=== PATIENT | female | born 1945 | race Caucasian/White ===

== ENCOUNTER 2021-07-07 11:05 | Inpatient (IN) | payer BC, SELFPAY ==
[~2021-07-07] VITALS: Ht 160 cm; Wt 95.3 kg
[2021-07-07 11:10] VITALS: BP 110/57
--- NOTE | 2021-07-07 11:53 | NUR ---
76 Y/O F BIB PATIENT PRESENTS TO ED WITH ABD PAIN ON LUQ AND LLQ THAT STARTED TODAY, PAIN ONLY WITH PALPATION AT THIS TIME. ABD IS ROUND/FIRM/TENDER, BM INCONTINENT (BASELINE). PT STATES SHE HAS A SENSATION THAT SHE IS HOLDING IN HER URINE AND DOESNT EMPTY ALL THE WAY. DENIES N/V/D; SKIN IS PINK/WARM/DRY; AAOX4, DOES NOT AMBULATE PER BASELINE; LUNGS CLEAR BL; HR EVEN AND REGULAR, CAP REFILL <3, GENERALIZED EDEMA NON PITTING; PT DENIES ANY FEVER, CP, SOB, OR COUGH AT THIS TIME; PATIENT STATES PAIN OF 0/10 AT THIS TIME; PATIENT POSITIONED FOR COMFORT; HOB ELEVATED; BEDRAILS UP X2; BED DOWN. ER MD MADE AWARE OF PT STATUS. RULE OUT: C DIFF PENDING PMH: DM2, GLAUCOMA, CHRONIC KIDNEY DISEASE, GASTRITIS, SLEEP APNEA, HYPERNATREMIA, HTN, ANEMIA, OSTEOARTHRITIS MED: SEE LIST ALLERGY: PENICILLIN
[2021-07-07 12:13] LABS: BASOPHILS # (AUTO) 0.1 K/uL (0.00-0.22); BASOPHILS % (AUTO) 1.2 % (0.0-2.0); EOSINOPHILS # (AUTO) 0.5 K/uL (0-0.4); HEMATOCRIT 29.7 % (36-48); HEMOGLOBIN 9.2 g/dL (12.0-16.0); LYMPHOCYTES # (AUTO) 3.2 K/uL (2.5-16.5); LYMPHOCYTES % (AUTO) 26.9 % (20.5-51.1); MEAN CORPUSCULAR HEMOGLOBIN 26 pg (27-31); MEAN CORPUSCULAR HGB CONC 31 g/dL (33-37); MEAN CORPUSCULAR VOLUME 83.8 fL (80-94); MONOCYTES # (AUTO) 1.2 K/uL (0.8-1.0); MONOCYTES % (AUTO) 10.3 % (1.7-9.3); NEUTROPHILS # (AUTO) 6.8 K/uL (1.8-7.7); NEUTROPHILS % (AUTO) 57.6 % (42.2-75.2); PLATELET COUNT (AUTO) 944 K/uL (140-450); RED BLOOD CELL COUNT(AUTO) 3.55 MIL/uL (4.20-5.40); RED CELL DISTRIBUTION WIDTH 25.1 % (11.6-13.7); WHITE BLOOD COUNT (AUTO) 11.8 K/uL (4.8-10.8)
[2021-07-07] MEDS ORDERED: NACL 0.9% 1,000 ML IV ONE ×2 (12:15→15:25)
[2021-07-07 12:22] LABS: ALBUMIN 1.7 g/dL (3.4-5.0); ANION GAP 11.2 (8-16); ASPARTATE AMINOTRANSFERASE 51 U/L (15-37); CARBON DIOXIDE 28.6 mmol/L (21-32); CHLORIDE 103 mmol/L (98-107); CREATININE 0.8 mg/dL (0.6-1.3); GLUCOSE 106 mg/dL (74-106); POTASSIUM 3.8 mmol/L (3.5-5.1); SODIUM SERUM 139 mmol/L (136-145); TOTAL BILIRUBIN 0.3 mg/dL (0.0-1.0); UREA NITROGEN, BLOOD 11 mg/dL (7-18)
--- NOTE | 2021-07-07 12:50 | NUR ---
PT SIGNED CONSENT FOR CT ANGIO.
--- NOTE | 2021-07-07 13:03 | NUR ---
STRAIGHT CATH DONE AT THIS TIME. URINE FOUL SMELL, YELLOW, CLOUDY WITH WHITE SEDIMENT. PERINEAL AREA TENDER TO TOUCH AND WHITE DISCHARGE.
--- NOTE | 2021-07-07 13:08 | NUR ---
URINE DIP WAS DIPPED 3 TIMES. MACHINE STATES IT IS UNABLE TO RUN DUE TO QUALITY FO STRIP.
[2021-07-07 14:25] LABS: APPEARANCE,URINE CLOUDY (CLEAR); COLOR,URINE YELLOW (YELLOW)
[2021-07-07 14:26] LABS: BILIRUBIN,URINE 3+ (NEGATIVE); LEUKOCYTE ESTERASE ,URINE 3+ (NEGATIVE); NITRITE, URINE NEGATIVE (NEGATIVE)
[2021-07-07 14:28] LABS: UGLUCOSE NEGATIVE (NEGATIVE)
[2021-07-07 14:30] LABS: BLOOD, URINE 3+ (NEGATIVE); PH,URINE 6.5 (5.0-9.0)
[2021-07-07 14:32] LABS: RBC,URINE >100 /HPF (0-5); WBC,URINE 80-100 /HPF (0-5)
[2021-07-07] MEDS ORDERED: ONDANSETRON 4 MG/2 ML VIAL IVP ONE (15:05)
[2021-07-07] MEDS ORDERED: AZITHROMYCIN 250 MG TAB PO ONE (15:10)
--- NOTE | 2021-07-07 15:24 | NUR ---
NOTIFIED MD OF PTS NAUSEA AND HUNGER; WAITING FOR MD NEW ORDERS. Addendum: 07/07/21 at 1835 by Rosa Guillermo RN WRONG TIME; SUPPOSED TO BE [id number]
--- NOTE | 2021-07-07 16:41 | NUR ---
Patient will be admitted to care of ENID MILLER. Admited to [facility]. Will go to room 113. Belongings list completed. Report to ALLY MCCAULEY.
--- NOTE | 2021-07-07 16:57 | NUR ---
PT HAS BEEN BROUGHT IN BY BHARGAV FROM THE ED IN STABLE CONDITION. PT WAS TRANSFERRED TO BED WITH 3 PEOPLE. PT IS BEDBOUND. PT DIAPER HAS BEEN CHANGED, AND CLEANED. JEAN-PIERRE TENDERNESS NOTED AND WHITE DISCHARGE. PT IS INCONTINENT. NO BM NOTED, PT REPORTS LAST BM WAS 3 DAYS AGO. NON PITTING GENERALIZED EDEMA NOTED, NO WOUNDS, ABDOMINAL STRETCH PALOMO NOTED. PT WAS POSITIONED SUPINE. PT PLACED ON 2L NC. PT LUNG SOUNDS CLEAR, DIMINISHED. PT HAS VISUAL IMPAIRMENT, HX OF GLAUCOMA NOTED. PT IS ON MED SURG WITH HR OF 98, BP 108/62, 94%, 20 RR, 98.9 TEMP. PT CAME FROM [facility]. AT BEDSIDE, HUMAIRA STRINGER, . PT HAS A L AC 20 G RUNNING NS @ 100. IV IS PATENT AND INTACT. BED PLACED IN LOWEST POSITION. PT VERBALIZED BEING HUNGRY, WILL NOTIFY REGARDING THIS. PT PLACED ON CONTACT PRECAUTIONS FOR R/O OF C DIFF FROM HER REHAB FACILITY. CALL LIGHT WITHIN REACH. WILL CONTINUE TO MONITOR.
--- NOTE | 2021-07-07 17:00 | NUR ---
PT LINENS CHANGED, DIAPER CHANGED, PT WAS TURNED SUPINE WITH BED ELEVATED TO SEMI FOWLERS AT THIS TIME.
[2021-07-07 17:35] VITALS: BP 108/62
--- NOTE | 2021-07-07 17:38 | NUR ---
PT NILAM SCALE IS 10, INITIATE NILAM SCALE PROTOCOL.
[2021-07-07] MEDS ORDERED: ONDANSETRON 4 MG/2 ML VIAL IVP PRN (18:25)
--- NOTE | 2021-07-07 18:35 | NUR ---
RESPONDED WITH NEW ORDERS REGARDING DIET, CALLED [facility] TO GET TRAY MADE FOR PT.
--- NOTE | 2021-07-07 18:35 | NUR ---
CALLED [facility] REGARDING LAST MINUTE [facility] CONSULT. [facility] STATED THEY WILL MAKE A TRAY FOR PT.
--- NOTE | 2021-07-07 18:49 | NUR ---
PRN ANTINAUSEA MEDICATION ADMINISTERED PER MD ORDER.
--- NOTE | 2021-07-07 18:52 | NUR ---
PT WILL BE ENDORSED TO PARKS RECREATION COORDINATOR NURSE IN STABLE CONDITION.
[2021-07-07] MEDS ORDERED: ACETAMINOPHEN 325 MG TAB PO PRN (19:05)
[2021-07-07] MEDS ORDERED: DOCUSATE SODIUM 100 MG GELCAP PO PRN (19:05)
[2021-07-07] MEDS ORDERED: POTASSIUM CHLORIDE 10 MEQ TABER PO PRN (19:05)
[2021-07-07] MEDS ORDERED: guaiFENesin DM 200/20 MG-10 ML 10 ML UDC PO PRN (19:05)
[2021-07-07 19:42] LABS: PROTHROMBIN TIME 11.7 secs (10.8-13.4)
[2021-07-07 19:50] LABS: CHOL/HDL RATIO 2.3 (1-4.5); FREE T4 (FREE THYROXINE) 1.79 ng/dL (0.76-1.46); MAGNESIUM 1.5 mg/dL (1.8-2.4); PHOSPHORUS 3.4 mg/dL (2.5-4.9); THYROID STIMULATING HORMONE 1.02 uIU/mL (0.34-3.74)
[2021-07-07 20:00] VITALS: BP 110/68
[2021-07-07] MEDS: NACL 0.9% 1,000 ML IV SCH (21:00)
[2021-07-07] MEDS: LEVOFLOXACIN 750 MG/D5W PREMIX 150 ML IV SCH (21:07)
[2021-07-07] MEDS: ZOLPIDEM 5 MG TAB PO PRN (21:08)
[2021-07-08 00:23] VITALS: BP 109/72
[2021-07-08] MEDS: HYDROcodone/APAP 7.5/325 MG 1 TAB PO PRN ×2 (01:12→22:20)
--- NOTE | 2021-07-08 01:53 | NUR ---
the pateint was admitted for spseis , the patient states she has insomnia` , Ambien was given . she stated that she had pain . narco was given. vitals are stable , breathing is even and unlabored . comfort and safety measures are povided.
[2021-07-08 04:00] VITALS: BP 114/72
[2021-07-08 06:38] LABS: BASOPHILS # (AUTO) 0.1 K/uL (0.00-0.22); BASOPHILS % (AUTO) 0.6 % (0.0-2.0); EOSINOPHILS # (AUTO) 0.4 K/uL (0-0.4); EOSINOPHILS % (AUTO) 3.6 % (0.0-4.0); HEMATOCRIT 27.8 % (36-48); HEMOGLOBIN 8.8 g/dL (12.0-16.0); LYMPHOCYTES # (AUTO) 2.6 K/uL (2.5-16.5); LYMPHOCYTES % (AUTO) 25.9 % (20.5-51.1); MEAN CORPUSCULAR HEMOGLOBIN 27 pg (27-31); MEAN CORPUSCULAR HGB CONC 32 g/dL (33-37); MEAN CORPUSCULAR VOLUME 84.1 fL (80-94); MONOCYTES # (AUTO) 1.3 K/uL (0.8-1.0); MONOCYTES % (AUTO) 12.9 % (1.7-9.3); NEUTROPHILS # (AUTO) 5.7 K/uL (1.8-7.7); RED CELL DISTRIBUTION WIDTH 24.6 % (11.6-13.7)
[2021-07-08 06:40] LABS: ANION GAP 9.7 (8-16); CARBON DIOXIDE 28.7 mmol/L (21-32); CHLORIDE 106 mmol/L (98-107); CREATININE 0.7 mg/dL (0.6-1.3); GLUCOSE 88 mg/dL (74-106); POTASSIUM 3.4 mmol/L (3.5-5.1); SODIUM SERUM 141 mmol/L (136-145); UREA NITROGEN, BLOOD 10 mg/dL (7-18)
--- NOTE | 2021-07-08 07:08 | NUR ---
PT. WITH LOW NILAM SCALE AT HIGH RISK, CONTINUE TO FOLLOW PRESSURE INJURY PREVENTION INTERVENTIONS. -TURN AND REPOSITION PATIENT Q 2H -ASSESS AND MONITOR SKIN CONDITION DURING POSITION CHANGE -OFFLOAD BILATERAL HEELS BY PLACING PILLOWS UNDER CALVES AT ALL TIMES, UNLESS OTHERWISE CONTRAINDICATED -PRESSURE REDISTRIBUTION SURFACE AND OFFLOADING SACRALCOCCYX -KEEP SKIN CLEAN AND DRY AT ALL TIMES. PLEASE NOTIFIED WOUND CARE NURSE FOR ANY CHANGE OF SKIN CONDITION
[2021-07-08 08:00] VITALS: BP 135/69
--- NOTE | 2021-07-08 08:00 | NUR ---
RECEIVED REPORT FROM FISHING VESSEL CAPTAIN FOR CONTINUITY OF CARE. PATIENT ALERT AWAKE ORIENTED X4, BANGLADESHI SPEAKING. NOT IN ANY DISTRESS NOTED. CONTACT ISOLATION OBSERVED FOR C-DIFF. WITH IVF ON GOING AND INFUSING WELL. DENIES PAIN AT THIS TIME. NEEDS ATTENDED. WILL CONTINUE TO MONITOR.
--- NOTE | 2021-07-08 08:27 | NUR ---
PATIENT HAS BEEN SCREENED AND CATEGORIZED HIGH NUTRITION RISK. PATIENT WILL BE SEEN WITHIN 1-2 DAYS OF ADMISSION. 07/08/21-07/09/21 CONSULT AND REFERRAL RECEIVED FOR WOUNDS/PRESSURE INJURY AND NAUSEA OVER [address]
--- NOTE | 2021-07-08 08:30 | NUR ---
LAB CALLED FOR CRITICAL VALUES. DR. ROSSI MADE AWARE.
[2021-07-08 08:34] LABS: PLATELET COUNT (AUTO) 1049 K/uL (140-450)
[2021-07-08] MEDS: PANTOPRAZOLE 40 MG TABEC PO SCH (08:41)
[2021-07-08] MEDS: ONDANSETRON 4 MG/2 ML VIAL IM/IVP PRN ×2 (09:23→13:31)
--- NOTE | 2021-07-08 09:23 | NUR ---
PATIENT NAUSEATED, XZOFRAN GIVEN ORDER. WILL CONTINUE TO MONITOR.
--- NOTE | 2021-07-08 10:13 | NUR ---
REPORT GIVEN TO GARRICK CANALES FOR CONTINUITY OF CARE. IN STABLE CONDITION.
--- NOTE | 2021-07-08 10:25 | NUR ---
RECEIVED REPORT FROM TITI MCCAULEY FOR CONTINUITY OF CARE, POC DISCUSSED. PT IS RESTING IN BED AT A 45% ANGLE ON 2L NC, WITH CHEST RISING AND FALLING EVEN AND UNLABORED. PT REPORTS STILL NO BM, EDUCATED ON THE IMPORTANCE OF US COLLECTING A STOOL SAMPLE, PT VERBALIZED UNDERSTANDING. PT REPORT LITTLE PAIN BUT IS NAUSEOUS. WILL MEDICATE PER MD ORDER. PT REPORTS ALL OTHER NEEDS HAVE BEEN MET. ALL SAFETY MEASURES IN PLACE, CALL LIGHT WITHIN REACH. WILL CONTINUE TO MONITOR.
[2021-07-08] MEDS: NACL 0.9% 1,000 ML IV SCH (11:45)
--- NOTE | 2021-07-08 11:49 | NUR ---
PT IS RESTING IN BED WITH CHEST RISING AND FALLING, PT REPORTS PAIN MILD BUT STILL SPURTS OF NAUSEA. PT REPORTS HER WILL COME VISIT ABOUT [id number]. ALL SAFETY MEASURES IN PLACE, CALL LIGHT WITHIN REACH. WILL CONTINUE TO MONITOR.
--- NOTE | 2021-07-08 13:31 | NUR ---
PRN ANTINAUSEA MEDICATION ADMINISTERED PER MD ORDER
--- NOTE | 2021-07-08 14:02 | NUR ---
PT HAS BEEN REPOSITIONED, CLEANED AND PROVIDED WITH ALL HER NEEDS. ALL SAFETY MEASURES IN PLACE, CALL LIGHT WITHIN REACH. WILL CONTINUE TO MONITOR
--- NOTE | 2021-07-08 15:46 | NUR ---
PT RESTING IN BED WITH NO ACUTE S/S OF DISTRESS. ALL SAFETY MEASURES IN PLACE, CALL LIGHT WITHIN REACH. WILL CONTINUE TO MONITOR.
--- NOTE | 2021-07-08 16:06 | NUR ---
DC PLANNING: RECEIVED A CALL FROM [facility] RON SPOKE WITH RICK STATED [facility] IS NOT A CONTRACTED FACILITY IF PATIENT IS STABLE FOR TRANSFER TO FAX IT TO THE CONTRACTED FACILITY. RECEIVED A CALL FROM CORRINA RODRIGEZ PROVIDE THE CONTRACTED FACILITY ARE [facility], [facility] AND [facility] FAXED ALL THE PAPERWORK . CM TO FOLLOW Addendum: 07/09/21 at 1108 by Sandra Muñoz RN DC PLANNING: RECEIVED A CALL FROM TAMAR DAVIS SPOKE WITH MANISHA STATED THEY DENIED THE CASE BECAUSE OF LOW CRITERIA FOR ADMISSION. CASE # [id number] TO SCHEDULE FOR PEER TO PEER [phone] NOTIFIED [facility] GOME[facility] DEPT.
[2021-07-08] MEDS ORDERED: MECLIZINE 25 MG TAB PO PRN (17:05)
[2021-07-08] MEDS: VANCOMYCIN HCL 25 MG/ML SOLN PO SCH (17:30)
--- NOTE | 2021-07-08 17:37 | NUR ---
CALEB MEDICATION ADMINISTERED PER MD ORDER, PRN MEDICATION GIVEN FOR DIZZINESS, PRN KDUR GIVEN FOR POT LEVEL OF 3.4. ALL QUESTIONS HAS BEEN ANSWERED WITH AT BEDSIDE. ALL SAFETY MEASURES IN PLACE, CALL LIGHT WITHIN REACH. WILL CONTINUE TO MONITOR.
[2021-07-08] MEDS ORDERED: VANCOMYCIN 500 MG VIAL PO SCH (18:00)
--- NOTE | 2021-07-08 18:42 | NUR ---
ALL NEEDS HAVE BEEN MET THROUGHOUT SHIFT. PT REMAINED STABLE. PT WILL BE ENDORSED TO FREELANCE TRANSLATOR NURSE.
[2021-07-08 20:00] VITALS: BP 131/68
[2021-07-09 04:00] VITALS: BP 121/59
[2021-07-09] MEDS: NACL 0.9% 1,000 ML IV SCH ×2 (05:03→21:01)
[2021-07-09] MEDS: VANCOMYCIN HCL 25 MG/ML SOLN PO SCH ×5 (05:14→23:00)
[2021-07-09 06:56] LABS: BASOPHILS # (AUTO) 0.1 K/uL (0.00-0.22); BASOPHILS % (AUTO) 0.9 % (0.0-2.0); EOSINOPHILS # (AUTO) 0.6 K/uL (0-0.4); EOSINOPHILS % (AUTO) 6.1 % (0.0-4.0); HEMATOCRIT 28.2 % (36-48); HEMOGLOBIN 8.8 g/dL (12.0-16.0); LYMPHOCYTES # (AUTO) 2.7 K/uL (2.5-16.5); LYMPHOCYTES % (AUTO) 25.7 % (20.5-51.1); MEAN CORPUSCULAR HEMOGLOBIN 26 pg (27-31); MEAN CORPUSCULAR HGB CONC 31 g/dL (33-37); MEAN CORPUSCULAR VOLUME 84.1 fL (80-94); MONOCYTES # (AUTO) 1.3 K/uL (0.8-1.0); MONOCYTES % (AUTO) 12.9 % (1.7-9.3); NEUTROPHILS # (AUTO) 5.7 K/uL (1.8-7.7); NEUTROPHILS % (AUTO) 54.4 % (42.2-75.2); RED BLOOD CELL COUNT(AUTO) 3.35 MIL/uL (4.20-5.40); WHITE BLOOD COUNT (AUTO) 10.4 K/uL (4.8-10.8)
--- NOTE | 2021-07-09 07:02 | NUR ---
RECEIVED REPORT FROM CHILD CARE EDUCATION COORDINATOR NURSE FOR CONTINUITY OF CARE. PT STABLE. NO S/S OF DISTRESS. BREATHING SYMMETRICAL. CALL LIGHT IN REACH. ALL SAFETY MEASURES IN PLACE. IV RUNNING PER MD ORDER. 2 L NC
[2021-07-09 07:08] LABS: T4 (THYROXINE) 9.2 ug/dL (4.5-12.0)
[2021-07-09 07:10] LABS: ANION GAP 11.4 (8-16); CARBON DIOXIDE 26.4 mmol/L (21-32); CHLORIDE 106 mmol/L (98-107); CREATININE 0.7 mg/dL (0.6-1.3); GLUCOSE 89 mg/dL (74-106); POTASSIUM 3.8 mmol/L (3.5-5.1); SODIUM SERUM 140 mmol/L (136-145); UREA NITROGEN, BLOOD 10 mg/dL (7-18)
[2021-07-09] MEDS: PANTOPRAZOLE 40 MG TABEC PO SCH (08:39)
[2021-07-09] MEDS: ONDANSETRON 4 MG/2 ML VIAL IM/IVP PRN ×3 (08:39→14:25)
--- NOTE | 2021-07-09 08:39 | NUR ---
PT STATED EXPERIENCING NAUSEA. PT MEDICATED PER MD ORDER. NO S/S OF DISTRESS. CALL LIGHT IN REACH. ALL SAFETY MEASURES IN PLACE
[2021-07-09 09:12] LABS: PLATELET COUNT (AUTO) 1013 K/uL (140-450)
--- NOTE | 2021-07-09 09:13 | NUR ---
SPOKE TO LAB. CRITICAL VALUE RECEIVED. PLATELETS 1013, TRENDING DOWN.
--- NOTE | 2021-07-09 10:20 | NUR ---
ENGINEERING NOTIFIED TO CHECK PHONE CORD PLUG ON WALL.
--- NOTE | 2021-07-09 10:55 | NUR ---
07/09/21 RD INITIAL ASSESSMENT COMPLETED PLEASE REFER TO NUTRITION ASSESSMENT UNDER CARE ACTIVITY FOR ESTIMATED NUTRITIONAL NEEDS. 1. CONTINUE MECHANICAL SOFT DIET TOLERATED 2. RECOMMEND NEPRO BID 3. RD TO FOLLOW-UP 2-3 DAYS, HIGH RISK REVIEWED BY DECLAN VALENZUELA RD
[2021-07-09] MEDS ORDERED: VANC125C11 PO (11:11)
[2021-07-09] MEDS ORDERED: IV Levaquin IV (11:11)
[2021-07-09] MEDS ORDERED: ASPI-1205 PO (11:12)
[2021-07-09 12:00] VITALS: BP 120/50
--- NOTE | 2021-07-09 12:03 | NUR ---
PT REFUSED LINEN CHANGE AND BATH BY MALE MEAT CLERK ASSIGNED TO ROOM. PT DISCHARGE ORDER ENTERED, MARINE EQUIPMENT PRESERVATION INSPECTOR SERVICE USE FOR DISCHARGE. PT STABLE. NO S/S OF DISTRESS. CALL LIGHT IN REACH. ALL SAFETY MEASURES IN PLACE Addendum: 07/09/21 at 1434 by Amparo Wing RN RN O2 TITRATED TO 1L NC
--- NOTE | 2021-07-09 13:14 | NUR ---
NOTIFIED PT OF DISCHARGE. CONCRETE [employer]ODUCTS MACHINE OPERATOR PHONE CONNECTED IN ROOM AND WORKING. PT MEDICATED PER MD ORDER. PT VERBALIZED UNDERSTANDING OF EDUCATION GIVEN. CALL LIGHT IN REACH. ALL SAFETY MEASURES IN PLACE
--- NOTE | 2021-07-09 14:23 | NUR ---
PT STATED EXPERIENCING NAUSEA WITH GAGGING. PT MEDICATED PER MD ORDER. NO S/S OF DISTRESS. CALL LIGHT IN REACH. ALL SAFETY MEASURES IN PLACE Addendum: 07/09/21 at 1435 by Amparo Wing RN RN 1L NC. PT TOLERATING WELL
--- NOTE | 2021-07-09 16:29 | NUR ---
PT RESTING IN BED, EYES CLOSED. NO S/S OF DISTRESS. BREATHING SYMMETRICAL. CALL LIGHT IN REACH. ALL SAFETY MEASURES IN PLACE. 1L NC. WAITING FOR CM TO DETERMINE TRANSPORTATION AND TRANSFER DECISION
--- NOTE | 2021-07-09 18:40 | NUR ---
PT RESTING IN BED. NO S/S OF DISTRESS. BREATHING SYMMETRICAL. CALL LIGHT IN REACH. ALL SAFETY MEASURES IN PLACE. 1L NC. PT TOLERATING WELL
[2021-07-09] MEDS: LEVOFLOXACIN 750 MG/D5W PREMIX 150 ML IV SCH (18:56)
--- NOTE | 2021-07-09 19:17 | NUR ---
ENDORSED PATIENT TO TRIMMER OPERATOR NURSE. NO S/S OF DISTRESS. BREATHING SYMMETRICAL. CALL LIGHT IN REACH. ALL SAFETY MEASURES IN PLACE. 1L NH.
[2021-07-09 20:00] VITALS: BP 126/69
[2021-07-09] MEDS: ZOLPIDEM 5 MG TAB PO PRN (21:01)
--- NOTE | 2021-07-09 23:23 | NUR ---
the patient vitals are stable. no respiratory distress . o2 stat is 99 on 1l NC. the pateint stated that she can not sleep. ambien was given . she sleeps comftable in her bed. she has order for discharge tomorrow. transportation was not arranged yet per Morning nurse. comfrt and safety measures are in plcae.
[2021-07-10 04:00] VITALS: BP 117/65
[2021-07-10] MEDS: VANCOMYCIN HCL 25 MG/ML SOLN PO SCH ×2 (05:13→12:40)
[2021-07-10 07:08] LABS: BASOPHILS % (AUTO) 0.5 % (0.0-2.0); EOSINOPHILS # (AUTO) 0.6 K/uL (0-0.4); EOSINOPHILS % (AUTO) 5.3 % (0.0-4.0); HEMOGLOBIN 8.5 g/dL (12.0-16.0); LYMPHOCYTES # (AUTO) 2.3 K/uL (2.5-16.5); LYMPHOCYTES % (AUTO) 21.9 % (20.5-51.1); MEAN CORPUSCULAR HEMOGLOBIN 27 pg (27-31); MEAN CORPUSCULAR HGB CONC 32 g/dL (33-37); MEAN CORPUSCULAR VOLUME 84.1 fL (80-94); MONOCYTES # (AUTO) 1.4 K/uL (0.8-1.0); MONOCYTES % (AUTO) 13.4 % (1.7-9.3); NEUTROPHILS # (AUTO) 6.2 K/uL (1.8-7.7); NEUTROPHILS % (AUTO) 58.9 % (42.2-75.2); PLATELET COUNT (AUTO) 983 K/uL (140-450); RED BLOOD CELL COUNT(AUTO) 3.21 MIL/uL (4.20-5.40); RED CELL DISTRIBUTION WIDTH 24.7 % (11.6-13.7); WHITE BLOOD COUNT (AUTO) 10.5 K/uL (4.8-10.8)
--- NOTE | 2021-07-10 07:10 | NUR ---
RECEIVED REPORT FROM SHIPPING SUPPORT CLERK NURSE FOR CONTINUITY OF CARE. PT. AWAKE AND ALERT NO ACUTE DISTRESS NOTED. PT. ON 2L/MIN NASAL CANULA. PT. HAS LEFT AC 20 G RUNNING NS AT 60 ML/HOUR. CALL LIGHT WITH IN REACH . ALL SAFETY MEASURE IN PLACE. WILL CONTINUE TO MONITOR.
[2021-07-10 07:15] LABS: ANION GAP 12.3 (8-16); CARBON DIOXIDE 25.3 mmol/L (21-32); CHLORIDE 105 mmol/L (98-107); CREATININE 0.6 mg/dL (0.6-1.3); GLUCOSE 81 mg/dL (74-106); POTASSIUM 3.6 mmol/L (3.5-5.1); SODIUM SERUM 139 mmol/L (136-145); UREA NITROGEN, BLOOD 9 mg/dL (7-18)
[2021-07-10] MEDS: PANTOPRAZOLE 40 MG TABEC PO SCH (08:10)
--- NOTE | 2021-07-10 08:11 | NUR ---
PT ON BED NOT ON ANY DISTRESS. GIVEN ALL DUE MEDICATION TOLERATED WELL. ALL SAFETY MEASURE IN PLACE. CALL LIGHT IN REACH. WILL CONTINUE TO MONITOR.
--- NOTE | 2021-07-10 11:12 | NUR ---
DC PLANNING: THE PATIENT JASON SOLIS ACCEPTED BACK TO [facility] PER BRANDEE, SHE WAS ABLE TO BUILD A CASE WITH [employer] AND HAS RECEIVED AUTHORIZATION FOR THE PATIENT TO RETURN THERE. ASSIGNED TO ROOM [address] GRIFFIN AMARAL, NUMBER TO CALL REPORT IS [phone]. BRANDEE STATES SHE WILL ASK HER AIRCRAFT PART ASSEMBLER ABOUT PROVIDING SUPPORT [facility] DOES NOT COVER NON-MEDICAL TRANSPORT. [place] ALSO SPOKE WITH CORRINA, DC DEHAIRING MACHINE TENDER FOR [facility] THIS MORNING TO DISCUSS THE POTENTIAL DC TO SNF TODAY, AND LEFT A VM ENDORSING THE DC TODAY. [place] LEFT THE PATIENTS RN ROBER KNOW ABOUT THE DC, PHONE NUMBER TO CALL REPORT IS [phone]. ROL[place]O WILL FOLLOW FOR NEEDS. Addendum: 07/10/21 at 1147 by Alisa Rueda DC PLANNING: THE PATIENT IS BEING PICKED UP BY [facility] ([phone]) BETWEEN 3 AND 3:30. [place] WILL FOLLOW FOR NEEDS.
--- NOTE | 2021-07-10 12:40 | NUR ---
PT ALERT NOT ON ANY DISCOMFORT. GIVEN MEDS ORDERED TOLERATED WELL NO ADVERSE REACTION NOTED. SAFETY MEASURE IN PLACE. CALL LIGHT WITH IN EASY REACH. WILL CONTINUE TO MONITOR.
[2021-07-10] MEDS: NACL 0.9% 1,000 ML IV SCH (13:45)
--- NOTE | 2021-07-10 14:08 | NUR ---
PATIENT AWAKE AND ALERT. NO ACUTE DISTRESS NOTED. PT. ON 2L/MIN NASAL CANULA. PATIENT SATING ON O2 98%. CALL LIGHT WITH IN REACH . ALL SAFETY MEASURE IN PLACE. WILL CONTINUE TO MONITOR.
--- NOTE | 2021-07-10 14:17 | NUR ---
GAVE REPORT FOR CONTINUITY OF CARE TO NURSE SHEETS.
--- NOTE | 2021-07-10 14:49 | NUR ---
CALLED HERB STRINGER OF PT INFORM THAT WE GOING TO DISCHARGE PT TO [facility].
[2021-07-10 16:29] VITALS: BP 161/53
--- NOTE | 2021-07-10 16:32 | NUR ---
PT ALERT AWAKE ABLE TO RESPONDS VERBALLY AT BED SIDED.. ON STABLE CONDITION. WRIST BAND AND IV REMOVED. IV CATHETER INTACT. CERTIFIED REGISTERED NURSE ANESTHETIST BY GO GO TRANSFORATION. ALL BELONGINGS GIVEN AND DISCHARGE POCKET.
== END 2021-07-10 16:30 | DRG 871 ==
LOC: MED 11:05 → MMU 15:25 → MTU 16:25
PROVIDERS: ADMIT Family Medicine; ATTEND Family Medicine
DX: A41.9 Sepsis, unspecified organism (principal); E43 Unspecified severe protein-calorie malnutrition; J96.01 Acute respiratory failure with hypoxia; A04.72 Enterocolitis due to Clostridium difficile, not specified as recurrent; N39.0 Urinary tract infection, site not specified; D64.9 Anemia, unspecified; D75.839 Thrombocytosis, unspecified; E11.22 Type 2 diabetes mellitus with diabetic chronic kidney disease; E78.5 Hyperlipidemia, unspecified; M19.90 Unspecified osteoarthritis, unspecified site; I13.10 Hypertensive heart and chronic kidney disease without heart failure, with stage 1 through stage 4 chronic kidney disease, or unspecified chronic kidney disease; G47.30 Sleep apnea, unspecified; M71.21 Synovial cyst of popliteal space [Baker], right knee; M71.22 Synovial cyst of popliteal space [Baker], left knee; N18.9 Chronic kidney disease, unspecified; Z20.822 Contact with and (suspected) exposure to COVID-19; R74.01 Elevation of levels of liver transaminase levels; Z68.37 Body mass index [BMI] 37.0-37.9, adult; Z88.0 Allergy status to penicillin
CPT/HCPCS: 36415; 71045; 71275; 80048; 80053; 81001; 82150; 82728; 83036; 83605; 83690; 83735; 83880; 84100; 84436; 84439; 84443; 84479; 84484; 85025; 85610; 85730; 87040; 87081; 87086; 93005; 93970; 96361; 96374; 99285; J1644; J1956; J2405; J3370; J8597; Q0092; Q9967

== ENCOUNTER 2021-07-26 15:27 | Inpatient (IN) | payer BC, SELFPAY ==
[~2021-07-26] VITALS: Ht 170.2 cm; Wt 90.7 kg
[~2021-07-26 15:27] MED LIST: ASPI-1205 PO; IV Levaquin IV; VANC125C11 PO
[2021-07-26 15:35] VITALS: BP 149/70
--- NOTE | 2021-07-26 15:37 | NUR ---
Pt moved to bed 2 by ems.
[2021-07-26] MEDS ORDERED: ONDANSETRON 4 MG/2 ML VIAL IVP ONE (15:40)
[2021-07-26] MEDS ORDERED: LEVOFLOXACIN 500 MG/D5W PREMIX 100 ML IV ONE (15:55)
[2021-07-26] MEDS ORDERED: NACL 0.9% 1,000 ML IV SCH (15:55)
--- NOTE | 2021-07-26 16:01 | NUR ---
LAB AT BEDSIDE
[2021-07-26 16:08] LABS: BASOPHILS # (AUTO) 0.1 K/uL (0.00-0.22); BASOPHILS % (AUTO) 0.6 % (0.0-2.0); EOSINOPHILS # (AUTO) 0.4 K/uL (0-0.4); EOSINOPHILS % (AUTO) 3.3 % (0.0-4.0); HEMATOCRIT 32.6 % (36-48); HEMOGLOBIN 10.5 g/dL (12.0-16.0); LYMPHOCYTES # (AUTO) 2.4 K/uL (2.5-16.5); LYMPHOCYTES % (AUTO) 19.5 % (20.5-51.1); MEAN CORPUSCULAR HEMOGLOBIN 26 pg (27-31); MEAN CORPUSCULAR HGB CONC 32 g/dL (33-37); MONOCYTES % (AUTO) 8.3 % (1.7-9.3); NEUTROPHILS # (AUTO) 8.5 K/uL (1.8-7.7); NEUTROPHILS % (AUTO) 68.3 % (42.2-75.2); PLATELET COUNT (AUTO) 989 K/uL (140-450); RED BLOOD CELL COUNT(AUTO) 3.98 MIL/uL (4.20-5.40); RED CELL DISTRIBUTION WIDTH 21.3 % (11.6-13.7); WHITE BLOOD COUNT (AUTO) 12.4 K/uL (4.8-10.8)
[2021-07-26 16:33] LABS: ALBUMIN 1.5 g/dL (3.4-5.0); ANION GAP 9.6 (8-16); ASPARTATE AMINOTRANSFERASE 26 U/L (15-37); CARBON DIOXIDE 30.7 mmol/L (21-32); CHLORIDE 99 mmol/L (98-107); CREATININE 0.7 mg/dL (0.6-1.3); GLUCOSE 89 mg/dL (74-106); LIPASE 76 U/L (73-393); POTASSIUM 3.3 mmol/L (3.5-5.1); SODIUM SERUM 136 mmol/L (136-145); TOTAL BILIRUBIN 0.3 mg/dL (0.0-1.0); UREA NITROGEN, BLOOD 9 mg/dL (7-18)
--- NOTE | 2021-07-26 16:40 | NUR ---
76 y/o Female c/o bib [facility] c/o n/v x 3 days with body pain and not eating for x3 days. medhx: hyperlipidemia, dm, sepsis, dysphagia, glaucoma, htn allergy: penicillin
[2021-07-26] MEDS ORDERED: ONDANSETRON 4 MG/2 ML VIAL ONE (17:02)
[2021-07-26] MEDS ORDERED: SIME80TA22 PO (17:22)
[2021-07-26] MEDS ORDERED: ASPI-1205 PO (17:22)
[2021-07-26] MEDS ORDERED: FERR325E14 PO (17:22)
[2021-07-26] MEDS ORDERED: METF-1243 PO (17:22)
[2021-07-26] MEDS ORDERED: METO-485 PO (17:22)
[2021-07-26] MEDS ORDERED: PANT40EC PO (17:22)
[2021-07-26] MEDS ORDERED: CETI10TA81 PO (17:22)
[2021-07-26] MEDS ORDERED: DORZ10SO11 OP (17:22)
[2021-07-26] MEDS ORDERED: FURO-572 PO (17:22)
[2021-07-26] MEDS ORDERED: ROSU20TA1 PO (17:22)
[2021-07-26] MEDS ORDERED: XALOS OP (17:22)
[2021-07-26] MEDS ORDERED: MULT-1328 PO (17:22)
[2021-07-26] MEDS ORDERED: METO50TE2 PO (17:22)
[2021-07-26] MEDS ORDERED: CALC-1030 PO (17:22)
[2021-07-26] MEDS ORDERED: ACET-8386 PO (17:22)
[2021-07-26] MEDS ORDERED: NETA2.5D OP (17:22)
[2021-07-26] MEDS ORDERED: ONDA4TAB PO (17:22)
[2021-07-26] MEDS ORDERED: [UNRECOGNIZED DRUG - CODE] NS (17:22)
[2021-07-26] MEDS ORDERED: AMLO5TAB PO (17:22)
[2021-07-26] MEDS ORDERED: DORZ10SO22 OP (17:22)
--- NOTE | 2021-07-26 18:21 | NUR ---
# 16 FR Urinary catheter inserted utilizing sterile technique. Immediate return of 30 ml YELLOW urine noted. Urine sample collected and sent to lab. Pt tolerated procedure.
--- NOTE | 2021-07-26 18:28 | NUR ---
PT'S AT BEDSIDE
[2021-07-26] MEDS: NACL 0.9% 1,000 ML IV SCH (18:44)
[2021-07-26 18:45] LABS: APPEARANCE,URINE SL CLOUDY (CLEAR); BILIRUBIN,URINE NEGATIVE (NEGATIVE); BLOOD, URINE TRACE-I (NEGATIVE); COLOR,URINE YELLOW (YELLOW); LEUKOCYTE ESTERASE ,URINE 2+ (NEGATIVE); NITRITE, URINE POSITIVE (NEGATIVE); UGLUCOSE NEGATIVE (NEGATIVE)
--- NOTE | 2021-07-26 19:25 | NUR ---
RECEIVED REPORT FROM BABAK MCCAULEY FOR CONTINUITY OF CARE
--- NOTE | 2021-07-26 19:25 | NUR ---
Pt report given to ABIEL RN. Transfer of care at this time.
[2021-07-26 20:09] LABS: RBC,URINE 0-5 /HPF (0-5)
[2021-07-26 20:10] LABS: WBC,URINE TOO MANY TO COUNT /HPF (0-5)
--- NOTE | 2021-07-26 20:21 | NUR ---
patient slightly confused AAOx3-- where. patient complaining of right ac IV where maintenance fluid is coming from. family member at bedside right now. Patient appears to be resting comfortably in bed- semi fowlers eyes open speaking with family member. Vital Signs within normal limits. Respirations even and unlabored. patient on 2L NC. Safety measures are in place, attached to monitor, and will continue to monitor patient.
[2021-07-26] MEDS ORDERED: guaiFENesin DM 200/20 MG-10 ML 10 ML UDC PO PRN (21:10)
[2021-07-26] MEDS ORDERED: DOCUSATE SODIUM 100 MG GELCAP PO PRN (21:10)
[2021-07-26] MEDS ORDERED: POTASSIUM CHLORIDE 10 MEQ TABER PO PRN (21:10)
[2021-07-26] MEDS ORDERED: ALBUTEROL SULFATE/IPRATROPIU 3 ML SOL IH PRN (21:10)
[2021-07-26] MEDS ORDERED: ZOLPIDEM 5 MG TAB PO PRN (21:10)
[2021-07-26 22:23] LABS: PROTHROMBIN TIME 13.1 secs (10.8-13.4)
[2021-07-26 22:35] LABS: CHOL/HDL RATIO 2.2 (1-4.5); FREE T4 (FREE THYROXINE) 1.53 ng/dL (0.76-1.46); MAGNESIUM 1.1 mg/dL (1.8-2.4); PHOSPHORUS 3.1 mg/dL (2.5-4.9); THYROID STIMULATING HORMONE 1.48 uIU/mL (0.34-3.74)
--- NOTE | 2021-07-26 23:00 | NUR ---
patient c/o pain at the site. noticed swelling, cold to the touch, and pain upon palpation. IV removed, catheter intact and site benign. Applied folded 4x4 gauze and tape to stop bleeding.
--- NOTE | 2021-07-27 00:26 | NUR ---
PT UNABLE TO FOLLOW INSTRUCTIONS AND PERFORM I.S. AT THIS TIME PT DID PULL 500mL x3
--- NOTE | 2021-07-27 02:28 | NUR ---
pericare provided for patient, changed diaper, and provided water. repositioned patient to the right side. Patient tolerated well. Safety measures are in place, patient on the monitor, and will continue to monitor patient
--- NOTE | 2021-07-27 02:28 | NUR ---
Chinedu mckeon in EDM - 07/27/21 at 0230 by DIONICIO pericare provided for patient, changed diaper, and provided water. repositioned patient to the right side. Patient tolerated well.
[2021-07-27] MEDS ORDERED: CLINDAMYCIN 600 MG/4 ML VIAL ONE ×3 (05:09→21:43)
[2021-07-27] MEDS: CLINDAMYCIN 600 MG in DEXTROSE 5% 50 ML IV SCH ×3 (05:20→22:35)
--- NOTE | 2021-07-27 05:29 | NUR ---
Patient appears to be resting comfortably in bed-- semi fowlers. Vital Signs within normal limits. Respirations even and unlabored. Safety measures are in place, patient attached to the monitor and will continue to monitor to monitor patient.
[2021-07-27] MEDS: NACL 0.9% 1,000 ML IV SCH ×2 (05:30→15:33)
--- NOTE | 2021-07-27 06:17 | NUR ---
PATIENT REPORTS STOMACH DOES NOT FEEL GOOD AND PATIENT SUDDENLY STARTED VOMITING. VOMIT IS YELLOW IN COLOR. GIVEN ZOFRAN PRN MEDICATION.
[2021-07-27] MEDS: ONDANSETRON 4 MG/2 ML VIAL IM/IVP PRN ×2 (06:22→15:15)
--- NOTE | 2021-07-27 06:45 | NUR ---
patient feeling nauseous, c/o pain 8/10- cramping feeling.
--- NOTE | 2021-07-27 07:06 | NUR ---
Sent message to Mary about nausea, vomiting, and possible abdomen distention along with pain. recommended CT. Awaiting message and orders for patient.
--- NOTE | 2021-07-27 07:12 | NUR ---
Pt report given to Jessica MCCAULEY. Transfer of care at this time.
[2021-07-27] MEDS: ALBUTEROL SULFATE/IPRATROPIU 3 ML SOL IH SCH ×3 (07:37→22:13)
--- NOTE | 2021-07-27 07:38 | NUR ---
POST HHN THERAPY PATIENT TOLERATED INCENTIVE SPIROMETRY (IS) THERAPY WELL WITHOUT COMPLICATIONS NOTED NEEDS FURTHER INSTRUCTION/COACHING ENCOURAGED PATIENT TO USE IS EVERY 1-2 HOURS WHILE AWAKE
[2021-07-27 07:59] LABS: BASOPHILS # (AUTO) 0.1 K/uL (0.00-0.22); BASOPHILS % (AUTO) 0.9 % (0.0-2.0); EOSINOPHILS # (AUTO) 0.3 K/uL (0-0.4); EOSINOPHILS % (AUTO) 2.2 % (0.0-4.0); HEMATOCRIT 32.1 % (36-48); HEMOGLOBIN 10.4 g/dL (12.0-16.0); LYMPHOCYTES # (AUTO) 2.1 K/uL (2.5-16.5); LYMPHOCYTES % (AUTO) 18.2 % (20.5-51.1); MEAN CORPUSCULAR HEMOGLOBIN 27 pg (27-31); MEAN CORPUSCULAR HGB CONC 32 g/dL (33-37); MONOCYTES # (AUTO) 0.9 K/uL (0.8-1.0); MONOCYTES % (AUTO) 7.6 % (1.7-9.3); NEUTROPHILS # (AUTO) 8.3 K/uL (1.8-7.7); NEUTROPHILS % (AUTO) 71.1 % (42.2-75.2); PLATELET COUNT (AUTO) 928 K/uL (140-450); RED BLOOD CELL COUNT(AUTO) 3.92 MIL/uL (4.20-5.40); RED CELL DISTRIBUTION WIDTH 21.5 % (11.6-13.7); WHITE BLOOD COUNT (AUTO) 11.6 K/uL (4.8-10.8)
[2021-07-27 08:11] LABS: ANION GAP 11.4 (8-16); CARBON DIOXIDE 26.8 mmol/L (21-32); CHLORIDE 101 mmol/L (98-107); CREATININE 0.7 mg/dL (0.6-1.3); GLUCOSE 83 mg/dL (74-106); POTASSIUM 3.2 mmol/L (3.5-5.1); SODIUM SERUM 136 mmol/L (136-145); UREA NITROGEN, BLOOD 9 mg/dL (7-18)
--- NOTE | 2021-07-27 08:29 | NUR ---
PATIENT HAS BEEN SCREENED AND CATEGORIZED MODERATE NUTRITION RISK. PATIENT WILL BE SEEN WITHIN 3-5 DAYS OF ADMISSION. 07/29/2021-07/31/[address]
--- NOTE | 2021-07-27 08:45 | NUR ---
RECEIVED REPORT FROM GARRICK GATES. TRANSFER OF CARE AT THIS TIME.
--- NOTE | 2021-07-27 08:48 | NUR ---
Family at bedside at this time.
--- NOTE | 2021-07-27 08:50 | NUR ---
Patient assisted with breakfast meal tray. Pt completed 30% of meal tray.
[2021-07-27] MEDS ORDERED: FUROSEMIDE 20 MG TAB PO SCH (09:00)
[2021-07-27] MEDS ORDERED: PANTOPRAZOLE 40 MG TABEC PO SCH (09:00)
[2021-07-27] MEDS ORDERED: NON-FORMULARY ITEM (Rosuvastatin Calcium* (Crestor*) 20 MG) PO SCH (09:00)
--- NOTE | 2021-07-27 09:12 | NUR ---
PT REPOSITIONED IN BED FOR COMFORT, VSS, WILL CONTINUE TO MONITOR.
[2021-07-27] MEDS: metFORMIN 500 MG TAB PO SCH ×2 (09:39→21:00)
[2021-07-27] MEDS: FERROUS SULFATE 325 MG TABEC PO SCH (09:39)
[2021-07-27] MEDS: ASPIRIN 325 MG TAB PO SCH (09:39)
[2021-07-27] MEDS: ATORVASTATIN 20 MG TAB PO SCH (09:39)
[2021-07-27] MEDS: amLODIPine 5 MG TAB PO SCH (09:53)
[2021-07-27] MEDS: DORZOLAMIDE 2% OP 10 ML BTL OP SCH (10:12)
[2021-07-27] MEDS ORDERED: MAG SULF 2000 MG/WATER PREMIX 50 ML IV SCH (11:00)
--- NOTE | 2021-07-27 11:00 | NUR ---
GAVE REPORT TO GARRICK TURNER. TRANSFER OF CARE AT THIS TIME.
--- NOTE | 2021-07-27 11:10 | NUR ---
REPORT RECIEVED FROM GARRICK CABEZAS FOR TRANSFER OF CARE
--- NOTE | 2021-07-27 13:33 | NUR ---
RT BEDSIDE PROVIDING BREATHINIG TX TO PT
[2021-07-27] MEDS ORDERED: LEVOFLOXACIN 500 MG/D5W PREMIX 100 ML IV SCH (15:00)
[2021-07-27] MEDS: HYDROcodone/APAP 7.5/325 MG 1 TAB PO PRN (15:14)
--- NOTE | 2021-07-27 15:16 | NUR ---
PT COMPLAINING OF PAIN 8/10 AND NAUSEA AT THIS TIME. PT PROVIDED WITH PAIN MEDICATION (NORCO) AND ZOFRAN FOR NAUSEA
--- NOTE | 2021-07-27 15:43 | NUR ---
RECEIVED PATIENT REPORT FROM ER NURSE
[2021-07-27 15:55] VITALS: BP 99/70
--- NOTE | 2021-07-27 15:55 | NUR ---
RECEIVED PATIENT FROM ER NURSE VIA BHARGAV. PT ADMITTED FOR PNA. PT IS AOX4, ABLE TO MAKE NEEDS KNOWN. RESPIRATIONS EVEN AND UNLABORED. ON 3 L NC. NO RESPIRATORY DISTRESS NOTED. SKIN IS WARM, DRY, AND INTACT. IV SITE ON LAC 20G INFUSING FLUIDS WELL. ABDOMEN IS SOFT, FLAT, AND NON-DISTENDED. BOWEL SOUNDS ACTIVE IN ALL QUADRANTS. PAIN AT RIGHT LOWER FLANK PAIN. PLAN OF CARE DISCUSSED. SAFETY PRECAUTIONS IN PLACE. CALL LIGHT WITHIN REACH.WIIL CONTINUE TO MONITOR.
[2021-07-27] MEDS ORDERED: DEXT 5% / NACL 0.9% 500 ML IV SCH (16:00)
--- NOTE | 2021-07-27 16:01 | NUR ---
Patient will be admitted to care of . Admited to TELE. Will go to room 111B. Belongings list completed. Report to GARRICK MATTA. PT TAKEN VIA BHARGAV WITH MARIA M HAT AND CAP PARTS CUTTER HAND
[2021-07-27] MEDS ORDERED: METOPROLOL SUCCINATE 50 MG TABER PO SCH (17:00)
[2021-07-27] MEDS ORDERED: INSULIN LISPRO SLIDING SCALE 100 UNITS/ML VIAL SUBQ PRN (19:00)
[2021-07-27] MEDS ORDERED: DEXTROSE 50% 50 ML SYR IVP PRN (19:00)
--- NOTE | 2021-07-27 19:36 | NUR ---
RECEIVED REPORT AT BEDSIDE FOR CONTINUITY OF CARE, PT LYING IN BED ASLEEP, HOB UP 35% SHE IS ON 3 LITERS VIA N/C. PT HAS A LAC 20 GUAGE INTACT AND RUNNING D5N/S AT 100MLS/HR. ALL ORDERED PRECAUTIONS IN PLACE.
--- NOTE | 2021-07-27 19:36 | NUR ---
ENDORSED TO PANEL ASSEMBLER NURSE FOR CONTINUITY OF CARE. PT IS STABLE.
[2021-07-27 20:00] VITALS: BP 105/48
--- NOTE | 2021-07-27 20:30 | NUR ---
PT LYING IN BED AOX2, SHE IS AROUSABLE TO NAME AND LIGHT TOUCH PT IS AWARE OF NAME AND THAT SHE IS IN THE HOSPITAL PT FINGERSTICK IS 92, NO HUMALOG COVERAGE NEEDED. V/S FOLLOWS: T 97.1 P 102 R 18 B/P 105/48 02 99% WITH 3 LITERS VIA N/C. ALL REQUESTED NEEDS ATTENDED BY STAFF. AND ALL ORDERED PRECAUTIONS IN PLACE.
[2021-07-27] MEDS: BLOOD GLUCOSE MONITORING 1 DEV DEV FS SCH (21:00)
[2021-07-27] MEDS: LATANOPROST 0.005% OP 2.5 ML BTL OP SCH (21:00)
--- NOTE | 2021-07-27 21:30 | NUR ---
PT WAS GIVEN ORDERED IV PIGGYBACK CLEOCIN 600MG HUNG AND RUNNING AT 100MLS/HR ORDERED. EYE GTT NOT AVAILABLE AT THIS TIME. PT METFORMIN WAS HELD DUE TO LOW FINGERSTICK AND PT IS NPO AT THIS TIME. ALL ORDERED PRECAUTIONS IN PLACE.
--- NOTE | 2021-07-27 22:14 | NUR ---
tX not given as pt was sleeping comfortably on 3l w/ spo2 99% and no distress noted will continue to monitor
[2021-07-28] VITALS: BP 95/43
[2021-07-28] MEDS ORDERED: KCL 20 MEQ/WATER INJ PREMIX 200 ML IV ONE (00:05)
--- NOTE | 2021-07-28 00:30 | NUR ---
SPOKE WITH MD ROSSI, PT POTASSIUM IS 3.2 HAS BEEN TRENDING DOWN, SHE HAS A 40 MEQ PO ORDER FOR POTASSIUM OF 3.6 AND LOWER, SAID OK TO GIVEN 40 MEQ POTASSIUM VIA K RIDER. FIRST BAG HUNG AND RUNNING AT 25MLS/HR. PT WAS TURNED AND REPOSITIONED IN BED, V/S FOLLOWS: T 97.4 P 102 R 20 B/P 95/43 02 99% WITH 3 LITERS VIA N/C. ALL REQUESTS ATTENDED AND ALL ORDERED PRECAUTIONS IN PLACE.
[2021-07-28 04:00] VITALS: BP 113/59
--- NOTE | 2021-07-28 04:30 | NUR ---
PT WAS TURNED, CHANGED AND REPOSITIONED IN BED . 2ND BAG OF K RIDER HUNG AND RUNNING AT 20 MLS/HR. ALL ORDERED PRECAUTIONS IN PLACE.
[2021-07-28] MEDS: NACL 0.9% 1,000 ML IV SCH (05:36)
[2021-07-28] MEDS: CLINDAMYCIN 600 MG in DEXTROSE 5% 50 ML IV SCH ×2 (05:36→13:15)
--- NOTE | 2021-07-28 06:35 | NUR ---
CLEOCIN HUNG AND RUNNING ORDERED. FINGERSTICK IS 89 NO COVERAGE NEEDED.
[2021-07-28] MEDS: BLOOD GLUCOSE MONITORING 1 DEV DEV FS SCH ×4 (07:05→21:47)
[2021-07-28 07:13] LABS: BASOPHILS # (AUTO) 0.1 K/uL (0.00-0.22); BASOPHILS % (AUTO) 0.5 % (0.0-2.0); EOSINOPHILS # (AUTO) 0.3 K/uL (0-0.4); EOSINOPHILS % (AUTO) 2.8 % (0.0-4.0); HEMATOCRIT 32.1 % (36-48); HEMOGLOBIN 10.4 g/dL (12.0-16.0); LYMPHOCYTES # (AUTO) 1.4 K/uL (2.5-16.5); LYMPHOCYTES % (AUTO) 13.1 % (20.5-51.1); MEAN CORPUSCULAR HEMOGLOBIN 27 pg (27-31); MEAN CORPUSCULAR HGB CONC 32 g/dL (33-37); MEAN CORPUSCULAR VOLUME 82.4 fL (80-94); MONOCYTES # (AUTO) 0.7 K/uL (0.8-1.0); MONOCYTES % (AUTO) 6.6 % (1.7-9.3); NEUTROPHILS # (AUTO) 8.2 K/uL (1.8-7.7); PLATELET COUNT (AUTO) 1006 K/uL (140-450); RED CELL DISTRIBUTION WIDTH 21.3 % (11.6-13.7)
[2021-07-28] MEDS: ALBUTEROL SULFATE/IPRATROPIU 3 ML SOL IH SCH ×3 (07:13→20:36)
[2021-07-28 07:21] LABS: MAGNESIUM 1.4 mg/dL (1.8-2.4); PHOSPHORUS 2.9 mg/dL (2.5-4.9)
[2021-07-28 07:22] LABS: ANION GAP 9.2 (8-16); CARBON DIOXIDE 30.2 mmol/L (21-32); CHLORIDE 102 mmol/L (98-107); CREATININE 0.8 mg/dL (0.6-1.3); GLUCOSE 110 mg/dL (74-106); POTASSIUM 3.4 mmol/L (3.5-5.1); SODIUM SERUM 138 mmol/L (136-145); UREA NITROGEN, BLOOD 9 mg/dL (7-18)
--- NOTE | 2021-07-28 07:40 | NUR ---
RECEIVED PATIENT FROM ER NURSE VIA BHARGAV. PT ADMITTED FOR PNA. PT IS AOX4, ABLE TO MAKE NEEDS KNOWN. RESPIRATIONS EVEN AND UNLABORED. ON 3 L NC. NO RESPIRATORY DISTRESS NOTED. SKIN IS WARM AND DRY. IV SITE ON LAC 20G INFUSING FLUIDS WELL. ABDOMEN IS SOFT, FLAT, AND NON-DISTENDED. BOWEL SOUNDS ACTIVE IN ALL QUADRANTS. DENIES PAIN AT THE MOMENT. PLAN OF CARE DISCUSSED. SAFETY PRECAUTIONS IN PLACE. CALL LIGHT WITHIN REACH.WIIL CONTINUE TO MONITOR.
[2021-07-28 08:00] VITALS: BP 105/65
[2021-07-28 08:02] LABS: WHITE BLOOD COUNT (AUTO) 10.6 K/uL (4.8-10.8)
[2021-07-28] MEDS: amLODIPine 5 MG TAB PO SCH (09:00)
[2021-07-28] MEDS: ATORVASTATIN 20 MG TAB PO SCH (09:00)
[2021-07-28] MEDS: FERROUS SULFATE 325 MG TABEC PO SCH (09:00)
[2021-07-28] MEDS: metFORMIN 500 MG TAB PO SCH (09:00)
[2021-07-28] MEDS: ASPIRIN 325 MG TAB PO SCH (09:00)
[2021-07-28] MEDS: MAGNESIUM OXIDE 400 MG TAB PO SCH (09:00)
[2021-07-28] MEDS ORDERED: FUROSEMIDE 40 MG/4 ML VIAL IVP SCH (09:05)
[2021-07-28] MEDS ORDERED: PANTOPRAZOLE 40 MG INJ VIAL IVP SCH (09:05)
[2021-07-28 09:06] LABS: T4 (THYROXINE) 7.5 ug/dL (4.5-12.0)
--- NOTE | 2021-07-28 09:45 | NUR ---
ALL SCHEDULED MEDS GIVEN. PT IS STABLE. NO DISTRESS NOTED. WILL CONTINUE TO MONITOR.
[2021-07-28] MEDS: DORZOLAMIDE 2% OP 10 ML BTL OP SCH (09:47)
--- NOTE | 2021-07-28 11:58 | NUR ---
BLOOD GLUCOSE CHECK IS 95. NO INSULIN COVERAGE NEEDED.
[2021-07-28 12:00] VITALS: BP 127/74
--- NOTE | 2021-07-28 12:01 | NUR ---
NOTED OPEN SKIN TEAR UNDER ABDOMINAL FOLD. PICTURES TAKEN. WOUND CONSULT ORDERED.
--- NOTE | 2021-07-28 12:02 | NUR ---
REINFORCED WOUNDS WITH DRESSING. APPLIED INTERDRY CLOTH UNDER ABDOMINAL FOLD. KEPT CLEAN AND DRY.
--- NOTE | 2021-07-28 13:00 | NUR ---
DR. ESTRELLA AT PATIENT'S BEDSIDE DISCUSSING PLANS FOR EGD TOMORROW. OBTAINED CONSENT FROM BOTH MD AND PATIENT.
--- NOTE | 2021-07-28 13:12 | NUR ---
PT UNABLE TO HOLD INCENTIVE SPIROMETER WITHOUT HELP. PT UNABLE TO FOLLOW COMMANDS FOR INCENTIVE SPIROMETER, AND PT REQUIRED HELP TO HOLD MEDNEB TX WITH FAMILY.
[2021-07-28] MEDS ORDERED: ALBUMIN HUMAN 25% 100 ML IV SCH (13:30)
--- NOTE | 2021-07-28 14:35 | NUR ---
PATIENT TRANSFERRED TO RADIOLOGY FOR CT PROCEDURE.
--- NOTE | 2021-07-28 14:50 | NUR ---
PATIENT BROUGHT BACK FROM CT PROCEDURE. PT IS STABLE. NO DISTRESS NOTED. WILL CONTINUE TO MONITOR.
[2021-07-28 16:00] VITALS: BP 119/53
[2021-07-28] MEDS ORDERED: DEXT 5% / NACL 0.9% 1,000 ML IV SCH (16:00)
--- NOTE | 2021-07-28 16:53 | NUR ---
BLOOD SUGAR CHECK IS 79. NO INSULIN COVERAGE NEEDED.
[2021-07-28] MEDS ORDERED: MAG SULF 2000 MG/WATER PREMIX 100 ML IV SCH (17:00)
[2021-07-28] MEDS: METOCLOPRAMIDE 10 MG/2 ML INJ VIAL IVP SCH ×2 (17:41→23:05)
[2021-07-28] MEDS ORDERED: METOCLOPRAMIDE 10 MG/2 ML INJ VIAL IVP SCH (18:00)
--- NOTE | 2021-07-28 18:33 | NUR ---
ALL SCHEDULED MEDS GIVEN. PT IS STABLE. NO DISTRESS NOTED. WILL CONTINUE TO MONITOR.
--- NOTE | 2021-07-28 19:10 | NUR ---
ENDORSED PT REPORT TO LICENSED ARCHITECT NURSE FOR CONTINUITY OF CARE. PT IS STABLE.
--- NOTE | 2021-07-28 19:20 | NUR ---
RECEIVED REPORT FROM PAXTON MCCAULEY DAYSHIFT NURSE AT BEDSIDE FOR CONTINUITY OF CARE, PT RESTING IN BED, SHE IS ON 3 LITERS VIA N/C. MAGNESIUM IV COMPLETED. PT LEFT AC GUAGE INTACT AND ASYMPTOMATIC. ALL FALLS PRECAUTIONS IN PLACE.
[2021-07-28 20:00] VITALS: BP 115/50
--- NOTE | 2021-07-28 20:00 | NUR ---
PT IN BED V/S FOLLOWS: T 97.8 P 96 R 19 B/P 115/50 02 94% ON 3 LITERS VIA N/C. PT RESTING IN BED SHE IS AROUSABLE TO NAME AND LIGHT TOUCH, SHE MIKE ANY PAIN AT THIS TIME.
--- NOTE | 2021-07-28 20:30 | NUR ---
FINGERSTICK IS 73, NO HUMALOG COVERAGE NEEDED. NEW ORDER FOR D50 IVP IF F/S GOES BELOW 60.
--- NOTE | 2021-07-28 20:36 | NUR ---
PT SLEEPING COMFORTABLY ON 3LNC W/ NO DISTRESS NOTED WILL CONTINUE TO MONITOR
[2021-07-28] MEDS: FUROSEMIDE 20 MG/2 ML VIAL IVP SCH (21:00)
[2021-07-28] MEDS: MEROPENEM 1,000 MG in NACL 0.9% 100 ML IV SCH (21:00)
[2021-07-28] MEDS: LATANOPROST 0.005% OP 2.5 ML BTL OP SCH (21:00)
[2021-07-28] MEDS: SENNA 8.6 MG TAB PO SCH (21:00)
--- NOTE | 2021-07-28 21:40 | NUR ---
PT MOST RECENT B/P 115 SPOKE WITH MD ROSSI REGARDING SCHEDULED ORDER OF LASIX 20MG IVP. HE SAID OK TO HOLD AT THIS TIME. PT GIVEN ALL OTHER SCHEDULED MEDS AT THIS TIME. EDUCATION PROVIDED AT BEDSIDE REGARDING MEDICATION, PT VERBALIZED UNDERSTANDING, REINFORCEMENT NEEDED. ALL ORDERED PRECAUTIONS IN PLACE.
[2021-07-28] MEDS ORDERED: DEXTROSE 50% 50 ML SYR IVP PRN (21:50)
[2021-07-28] MEDS: PANTOPRAZOLE 40 MG INJ VIAL IVP SCH (22:41)
[2021-07-29] VITALS: BP 120/60
--- NOTE | 2021-07-29 | NUR ---
PT IN BED SHE IS RESTING WITH EYES CLOSED NO S/S OF PAIN OR DISTRESS NOTED. PT IS NOW NPO FOR EDG PROCEDURE. V/S FOLLOWS: T 97.3 P 95 R 18 B/P 120/60 02 95% ON 3 LITERS VIA N/C.
[2021-07-29 04:00] VITALS: BP 111/45
--- NOTE | 2021-07-29 04:00 | NUR ---
PT IN BED ASLEEP V/S DONE AT BEDSIDE FOLLOWS: T 97.7 P 95 R 18 B/P 111/45 02 97% ON 3 LITERS VIA N/C.
--- NOTE | 2021-07-29 06:30 | NUR ---
ZOSYN HUNG AND RUNNING ORDERED LAST F/S IS 70. ALL ORDERED PRECAUTIONS IN PLACE.
[2021-07-29 06:47] LABS: BASOPHILS % (AUTO) 0.2 % (0.0-2.0); EOSINOPHILS # (AUTO) 0.4 K/uL (0-0.4); EOSINOPHILS % (AUTO) 3.2 % (0.0-4.0); HEMATOCRIT 28.6 % (36-48); MEAN CORPUSCULAR HEMOGLOBIN 26 pg (27-31); MEAN CORPUSCULAR HGB CONC 31 g/dL (33-37); MEAN CORPUSCULAR VOLUME 83.1 fL (80-94); MONOCYTES % (AUTO) 8.6 % (1.7-9.3); NEUTROPHILS # (AUTO) 8.1 K/uL (1.8-7.7); PLATELET COUNT (AUTO) 885 K/uL (140-450); RED BLOOD CELL COUNT(AUTO) 3.44 MIL/uL (4.20-5.40); RED CELL DISTRIBUTION WIDTH 21.1 % (11.6-13.7); WHITE BLOOD COUNT (AUTO) 11.5 K/uL (4.8-10.8)
[2021-07-29] MEDS: METOCLOPRAMIDE 10 MG/2 ML INJ VIAL IVP SCH ×2 (06:48→11:44)
[2021-07-29] MEDS: BLOOD GLUCOSE MONITORING 1 DEV DEV FS SCH ×4 (06:50→21:50)
[2021-07-29] MEDS: ALBUTEROL SULFATE/IPRATROPIU 3 ML SOL IH SCH ×3 (07:00→20:00)
--- NOTE | 2021-07-29 07:20 | NUR ---
RECEIVED REPORT FROM NIGHT NURSE PT IS MONEGASQUE SPEAKING AAOX3, SR ON MONITOR, ON 3LPM NC SATURATING AT 96-100%, NPO EXCEPT MEDS, LAST BLOOD SUGAR 70 MG/DL, INCONTINENT, BEDREST/BEDBOUND DUE TO GENERAL WEAKNESS, IV ON LEFT AC GAUGE 20 ON TKO, SKIN INTACT WITH SOME SKIN TEAR ON ABDOMINAL FOLDS, PT FOR EGD BY DR ESTRELLA, CONSENT SIGNED. BILATERAL EDEMA ON LE, PT/OT PENDING, LASIX HELD DUE TO LOW BP. SAFETY MEASURES IN PLACE AND CALL LIGHT WITHIN REACH. WILL CONTINUE TO MONITOR.
[2021-07-29 07:42] LABS: ANION GAP 11.3 (8-16); CARBON DIOXIDE 26.9 mmol/L (21-32); CHLORIDE 105 mmol/L (98-107); CREATININE 0.6 mg/dL (0.6-1.3); GLUCOSE 83 mg/dL (74-106); POTASSIUM 3.2 mmol/L (3.5-5.1); SODIUM SERUM 140 mmol/L (136-145); UREA NITROGEN, BLOOD 8 mg/dL (7-18)
[2021-07-29 07:52] LABS: MAGNESIUM 1.6 mg/dL (1.8-2.4); PHOSPHORUS 2.8 mg/dL (2.5-4.9)
[2021-07-29 08:00] VITALS: BP 147/67
--- NOTE | 2021-07-29 08:30 | NUR ---
SCHEDULED MEDICATION GIVEN, CHECK VITAL SIGNS BP 147/67 NH 93. PT TOLERATED WELL. WILL CONTINUE TO MONITOR.
[2021-07-29] MEDS: DORZOLAMIDE 2% OP 10 ML BTL OP SCH (09:00)
[2021-07-29] MEDS: MEROPENEM 1,000 MG in NACL 0.9% 100 ML IV SCH ×2 (09:03→21:29)
[2021-07-29] MEDS: ATORVASTATIN 20 MG TAB PO SCH (09:05)
[2021-07-29] MEDS: ASPIRIN 325 MG TAB PO SCH (09:05)
[2021-07-29] MEDS: FERROUS SULFATE 325 MG TABEC PO SCH ×4 (09:06→21:30)
[2021-07-29] MEDS: SPIRONOLACTONE 50 MG TAB PO SCH (09:06)
[2021-07-29] MEDS: MAGNESIUM OXIDE 400 MG TAB PO SCH (09:06)
[2021-07-29] MEDS: POTASSIUM CHLORIDE 20% 40 MEQ/15 ML UDC GT SCH (09:07)
[2021-07-29] MEDS: PANTOPRAZOLE 40 MG INJ VIAL IVP SCH ×2 (09:07→21:29)
[2021-07-29] MEDS: FUROSEMIDE 20 MG/2 ML VIAL IVP SCH ×2 (09:08→21:32)
--- NOTE | 2021-07-29 10:00 | NUR ---
PATIENT HAS BEEN CATEGORIZED HIGH NUTRITION RISK D/T REFERRAL FOR NAUSEA AND VOMITING FOR 3 DAYS. PATIENT WILL BE SEEN TODAY. TATY PENG RD
--- NOTE | 2021-07-29 10:16 | NUR ---
CRITAL VALUE REPORTED TO DR ROSSI CALCIUM 12.1 AND ECOLI MDRO URINE CULTURE AWAITING ORDERS.
--- NOTE | 2021-07-29 10:42 | NUR ---
WOUND CARE NOTE: SKIN ASSESSMENT DONE TO THIS 76 Y/O PT. AWAKE WITH GENERAL WEAKNESS, PT. ADMITTED WITH INTERTRIGO TO LOWER ABDOMEN SKIN FOLDS WITH 2 PARTIAL THICKNESS SKIN LOSS AND LARGEST 1X6CM SUPERFICIAL DEPTH, SMALLEST 1X5CM SUPERFICIAL DEPTH,WOUND BEDS ARE PINK, MOIST, NO ODOR, JEAN-PIERRE-WOUND SKIN MOIST, INTACT. INCONTINENT ASSOCIATED DERMATITIS TO GROINS AND PERINEUM SKIN RED AND MOIST. PAIN 0/10. RECOMMENDATION: -CLEANSE LOWER ABDOMEN SKIN FOLDS PARTIAL THICKNESS SKIN LOSS WITH MILD SOAP AND WATER PAT DRY , APPLY VERSATEL DRESSING AND JEAN-PIERRE WOUND INTERTRIGO MOIST SKIN, PAT DRY, DUST NYSTATIN POWDER BID AND CRIPPLE CUTTER -APPLY HYDRAGUADR TO PERINEUM MAD BID AND PRN IF SOILING -TURN AND REPOSITION PATIENT Q 2H -ASSESS AND MONITOR SKIN CONDITION DURING POSITION CHANGE -OFFLOAD BILATERAL HEELS BY PLACING PILLOWS UNDER CALVES AT ALL TIMES, UNLESS OTHERWISE CONTRAINDICATED -PRESSURE REDISTRIBUTION SURFACE THERAPY -KEEP SKIN CLEAN AND DRY AT ALL TIMES. PLEASE CONTACT WOUND CARE NURSE FOR ANY QUESTION AND CHANGE OF WOUND CONDITION.
[2021-07-29 12:00] VITALS: BP 154/68
--- NOTE | 2021-07-29 12:10 | NUR ---
07/29/21 RD INITIAL ASSESSMENT COMPLETED PLEASE REFER TO NUTRITION ASSESSMENT UNDER CARE ACTIVITY FOR ESTIMATED NUTRITIONAL NEEDS. 1. RECOMMEND SWALLOW EVAL 2. RECOMMEND CCHO DIET IF PT PASSESS SWALLOW EVAL 3.RD TO FOLLOW-UP 2-3 DAYS, HIGH RISK REVIEWED BY DECLAN VALENZUELA RD
[2021-07-29] MEDS ORDERED: MIDAZOLAM 5 MG/5 ML VIAL ONE (12:21)
[2021-07-29] MEDS ORDERED: diphenhydrAMINE 50 MG/ML VIAL ONE (12:21)
[2021-07-29] MEDS ORDERED: fentaNYL citrate 0.05 MG/ML VIAL ONE (12:21)
--- NOTE | 2021-07-29 12:27 | NUR ---
DC PLANNING: THE ADMITTED FROM [facility] WITH C/O NAUSEA/VOMITING FOR SEVERAL DAYS. UA+ FOR BACTERIA AND WBC'S, CXR SHOWS LEFT BASILAR OPACITY. H/O DM, DYSPHAGIA, GLAUCOMA, HYPTERTENSIONA DN HYPERLIPIDEMIA AND LE AND BACK PAIN. ORDERS FOR CONSULTS WITH ID, GI AND PULMONOLOGY, ON O2 3L. STARTED ON MEREM IV, DUONEBS, BLOOD AND URINE CULTURES IN PROCESS WITH THE URINE CULTURE SHOWING E-COLI. [place] RECEIVED A CALL FROM FELIPE AT [facility] ([phone]) STATING THAT THE PATIENT IS OUT OF NETWORK AND DOES NOT HAVE OUT OF NETWORK BENEFITS. [place] SPOKE WITH THE ATTENDING MD WHO STATES THAT THE PATIENT IS STABLE FOR TRANSFER. [place] ATTEMPTED TO SPEAK WITH THE PATIENT REGARDING TRANSFER, THE PATIENT WOKE UP BRIEFLY BUT FELL ASLEEP. [place] THEN SPOKE WITH HER HUMAIRA PATRICK BY PHONE AND DISCUSSED THE PATIENT POTENTIALLY TRANSFERRING. HE STATES THAT [facility] IS THE ONLY HOSPITAL HE DOESN'T WANT THE PATIENT TO TRANSFER TO BUT IS IN AGREEMENT OTHERWISE. [place] THEN SPOKE AGAIN WITH FELIPE AT WHO STATES SHE WILL CALL CONTACTED HOSPITALS TO SEE WHO HAS BEDS. [place] WILL THEN BE RESPONSIBLE FOR MAKING ARRANGEMENTS WITH THE HOSPITAL AND TRANSFERRING THE PATIENT. [place] ALSO SPOKE WITH [facility] WHO STATES THAT THE PATIENT HAS NOT BEEN PARTICIPATING WITH P.T. OR O.T. DUE TO C/O PAIN IN HER LE'S AND BACK AND IS PRIMARILY BEDBOUND. SHE IS NORMALLY AWAKE AND ALERT, CM ENDORSED THAT THE PATIENTS IS IN AGREEMENT WITH HER RETURNING TO THE FACILITY WHEN CLINICALLY STABLE. [place] WILL FOLLOW FOR NEEDS. Addendum: 07/29/21 at 1401 by Alisa Rueda CM DC PLANNING: CLINICAL PACKET FAXED TO [facility], [facility] AND [facility] PER INPUT ON FACILITIES THAT HAVE MED SURG BEDS. CM WILL FOLLOW UP. Addendum: 07/29/21 at 1528 by Alisa Rueda CM DC PLANNING: IF THE PATIENT IS ACCEPTED AT ANY OF THE THREE HOSPITALS IN THE PREVIOUS NOTE [facility] SHOULD BE USED FOR TRANSPORT, NO AUTH NEEDED PER [facility]. NO UPDATES AT THIS TIME ON ACCEPTANCE TO A CONTACTED HOSPITAL, CM WILL FOLLOW FOR NEEDS. Addendum: 07/30/21 at 0921 by Alisa Rueda CM DC PLANNING: CM SPOKE WITH THE [facility] TRANSFER CENTER AND [facility] TRANSFER CENTER, NEITHER ARE ABLE TO ACCEPT THE PATIENT THEY ARE AT CAPACITY AND DON'T HAVE BEDS AT THIS TIME. MESSAGE LEFT FOR THE [facility] TEST TUBE MAKER ASKING FOR AN UPDATE ON BED AVAILABILITY. [place] WILL FOLLOW FOR NEEDS. Addendum: 07/30/21 at 0924 by Alisa Rueda CM DC PLANNING: [place] SPOKE WITH JAGRUTI WANG AT [facility] AND UPDATED HER ON THE LACK OF BEDS AT CONTACTED HOSPITALS. CM WILL FOLLOW FOR NEEDS. Addendum: 07/30/21 at 1530 by Alisa Rueda CM DC PLANNING: REFERRAL FOR TRANSFER SENT TO [facility] PER DIRECTION OF FELIPE AT [facility]. [place] WILL FOLLOW FOR NEEDS. Addendum: 07/31/21 at 1118 by Alisa Rueda CM DC PLANNING: CM SPOKE WITH JENNIFER BANKS AT [facility] ([phone]), INFORMATION GIVEN FOR POTENTIAL TRANSFER TO [facility], INFORMATION REFAXED. SPOKE WITH GUILLE AT [facility] ([phone]), INFORMATION FAXED TO THEM FOR POTENTIAL TRANSFER TO [facility] [place]. CM WILL FOLLOW FOR NEEDS. Addendum: 07/31/21 at 1140 by Alisa Rueda CM DC PLANNING: PATIENT DECLINED BY [facility] FOR TRANSFER. LEFT FOR FELIPE AT [facility] UPDATING HER ON FACILITY DENIAL. CM WILL FOLLOW FOR NEEDS. Addendum: 07/31/21 at 1152 by Alisa Rueda CM DC PLANNING: DC ORDER RECEIVED, [place] FOLLOWED UP WITH BRANDEE AT [facility] FOR ROOM ASSIGNMENT. BRANDEE WILL GET AUTH FROM AND WILL LOOK INTO TRANSPORT ARRANGEMENTS. [place] WILL FOLLOW FOR NEEDS. Addendum: 07/31/21 at 1637 by Alisa Rueda CM DC PLANNING: MULTIPLE CALLS TO [facility] AND [facility], UNABLE TO GET AUTHORIZATION FOR SNF AND TRANSPORT. [facility] RESPONSIBLE FOR GETTING AUTH WITH , [place] WILL FOLLOW UP WITH THEM AND BOYD VITALE IN AM. [place] WILL FOLLOW FOR NEEDS. Addendum: 08/01/21 at 1523 by Alisa Rueda CM DC PLANNING: [place] SPOKE WITH JAGRUTI DANG FOR [facility] ([phone]), ENDORSED ORDER FOR [facility] FOR ENDOCRINOLOGY MANAGEMENT OF HYPERCALCEMIA. ASKED TO REFER THE PATIENT TO [facility] AND [facility] [place]. [place] SPOKE WITH ROBERT AT THE [facility], UNABLE TO CONSIDER PATIENT FOR TRANSFER THEIR INTERNAL MEDICAL (ENDOCRINE FALLS UNDER THIS SERVICE) BEDS ARE AT CAPACITY. [place] THEN SPOKE WITH OCTAVIA AT [facility] ([phone]), CLINICAL INFORMATION FAXED. [place] THEN SPOKE WITH ANTON AT THE [facility] [place] [facility] [phone]), HE STATES THAT THE FACILITY IS AT CAPACITY AND CANNOT ACCEPT REFERRALS. [place] WILL FOLLOW FOR NEEDS. Addendum: 08/02/21 at 0842 by Alisa Rueda CM DC PLANNING: REQUEST FROM [facility] FOR UPDATED LABS, FAXED TO [facility], CONFIRMED WITH KYLIE AT THE CENTER THAT SHE WOULD SUBMIT THEM FOR MD REVIEW. [place] WILL FOLLOW FOR NEEDS. Addendum: 08/02/21 at 1255 by Alisa Rueda CM DC PLANNING: PER OMID AT [facility] THE PATIENT HAS BEEN DECLINED BY THEIR CASTING ROOM HELPER FOR TRANSFER. LEFT REQUESTING AN MD TO MD CHAT TO APPEAL THE DECISION. ALSO LEFT FOR KUMAR AT ([phone]) UPDATING HER ON THE PATIENTS MEDICAL CONDITION AND DENIAL BY THE THREE FACILITIES THE PATIENT WAS REFERRED TO, ASKED FOR OTHER CONTRACTED OPTIONS. THE PATIENT IS CONFUSED, HAS AN NGT FOR FEEDINGS AND IS IN RESTRAINTS. CALCIUM REMAINS ELEVATED, DR AWAD CONTINUES TO RECOMMEND TRANSFER TO [facility]. [place] WILL FOLLOW FOR NEEDS. Addendum: 08/02/21 at 1555 by Alisa Rueda CM DC PLANNING: [place] SPOKE WITH KYLIE AT THE [facility], STATES THAT THEY ARE WAITING FOR DR AWAD TO CALL THEM FOR CLARIFICATION OF LABS. STATES THAT IF THE PATIENT NEEDS PTH THEY CAN DO IT AT [place], IF THEY NEED PTH WITH CALCIUM IT IS A SEND OUT AND THEY WILL PROBABLY NOT TAKE THE PATIENT. [place] ALSO SPOKE WITH JAGRUTI DANG AT , STATES THAT [place] CAN REFER TO [facility] AND [facility]. CM SPOKE WITH KYLIE AT THE [facility] TRANSFER CENTER, THEY ARE AT CAPACITY AND CANNOT ACCEPT REFERRALS. REFERRAL FORM FAXED TO [facility], CM WILL FOLLOW FOR NEEDS. Addendum: 08/07/21 at 1525 by Chantale Hallman DC PLANNING SW FAXED PATIENT'S INFORMATION AND CLINICALS TO [facility] AT WITH COMPLETED CONFIRMATION OF 15:25 Addendum: 08/08/21 at 1153 by Alisa Rueda CM DC PLANNING: [facility] UNABLE TO ACCEPT THE PATIENT BECAUSE OF MULTIPLE COVID POSITIVE RESIDENTS. POTENTIALLY WILL HAVE A BED THIS THURSDAY, CM ASKED THEM TO REACH OUT TO A [facility] FACILITY FOR PLACEMENT, THEY WILL SPEAK WITH [facility] PER ANNABELLE, REGULAR SENIOR CARE PROVIDER FOR YONKERS. CM WILL FOLLOW FOR NEEDS. Addendum: 08/08/21 at 1433 by Alisa Rueda CM DC PLANNING: REFERRAL SENT TO [facility] ([phone]), CM SPOKE WITH ANDRES WHO IS REVIEWING THE PATIENT FOR ADMISSION. BARRIER TO DC WILL AUTHORIZATION FROM [facility] TOMORROW IS A HOLIDAY FOR THE FACILITY AND [facility]. ANTICIPATE PATIENT WILL NOT DISCHARGE UNLESS [facility] TAKES HER BACK THIS WEEKEND. CM WILL FOLLOW FOR NEEDS. Addendum: 08/08/21 at 1545 by Alisa Rueda CM DC PLANNING: [facility] UNABLE TO ACCEPT THEY ARE IN A "BEDLOCK". CM WILL FOLLOW FOR NEEDS. Addendum: 08/12/21 at 1535 by Alisa Rueda CM DC PLANNING: PATIENT ACCEPTED TO [facility], ROOM 16B, DR MOYA ACCEPTING. NUMBER TO CALL REPORT IS [phone], PER [facility] PATIENTS BOYD VITALE MAY HAVE , FAMILY WILL BE PAYING LUX. CM WILL SPEAK WITH THE PATIENTS TOMORROW FOR PAYMENT FOR TRANSPORT IN AM. CM WILL FOLLOW FOR NEEDS. Addendum: 08/13/21 at 1353 by Alisa Rueda CM DC PLANNING: GOING TO [facility] VIA [facility], AROUND 3-3:30. ASSIGNED ROOM 16B UNDER DR MOYA. [place] WILL FOLLOW FOR NEEDS. Addendum: 08/14/21 at 1109 by Alisa Rueda CM DC PLANNING: LATE ENTRY: [place] SPOKE WITH DR GARRETT WHO STATES THE PATIENT DOESN'T NEED ISOLATION AT [facility]. [place] ALSO SPOKE WITH DR ROSSI WHO STATES THAT HIS DC ORDER FOR SHERYL WAS OLD AND THAT THE PATIENT DOESN'T NEED TO CONTINUE ON IV ABX. [place] ENDORSED THIS TO THE SNF REGULAR SENIOR CARE PROVIDER ANNABELLE.
[2021-07-29] MEDS ORDERED: MIDAZOLAM 2 MG/2 ML VIAL IVP ONE (13:15)
[2021-07-29] MEDS ORDERED: fentaNYL citrate 0.05 MG/ML VIAL IVP ONE (13:15)
--- NOTE | 2021-07-29 13:30 | NUR ---
PT BACK IN HER ROOM AFTER THE PROCEDURE. 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 BY DR ESTRELLA. H PYLORI GASTRIC FOR BIOPSY.
[2021-07-29] MEDS: NYSTATIN POW 100 MU/GM 15 GM BTL TP SCH (13:37)
[2021-07-29] MEDS: HYDRAGUARD CREAM TP SCH (13:37)
[2021-07-29] MEDS: amLODIPine 5 MG TAB PO SCH ×2 (14:00→14:24)
[2021-07-29 16:00] VITALS: BP 131/56
--- NOTE | 2021-07-29 16:33 | NUR ---
BLOOD SUGAR 79 MG/DL ENCOURAGED PT TO DRINK JUICE AND EAT.
--- NOTE | 2021-07-29 17:42 | NUR ---
SPOKE WITH [facility] AND CASE MANAGEMENT NEEDS TO FOLLOW UP WITH THEM AT THIS NUMBER [phone].
--- NOTE | 2021-07-29 19:27 | NUR ---
ENDORSED TO NIGHT NURSE FOR CONTINUITY OF CARE. PT STABLE
[2021-07-29 20:00] VITALS: BP 131/56
[2021-07-29] MEDS: LATANOPROST 0.005% OP 2.5 ML BTL OP SCH (21:33)
[2021-07-29] MEDS: SENNA 8.6 MG TAB PO SCH (21:33)
[2021-07-30 00:01] VITALS: BP 129/67
[2021-07-30] MEDS: NYSTATIN POW 100 MU/GM 15 GM BTL TP SCH ×2 (01:50→13:41)
[2021-07-30] MEDS: HYDRAGUARD CREAM TP SCH ×2 (01:50→13:50)
--- NOTE | 2021-07-30 01:57 | NUR ---
the patient vitals are stable . breathing is even and unlabored. she sleeps comrtable in her bed. EGD showed GE ulcers. comfrt and safety measures are provided.
[2021-07-30 06:34] VITALS: BP 121/71
[2021-07-30] MEDS: BLOOD GLUCOSE MONITORING 1 DEV DEV FS SCH ×4 (06:54→21:00)
[2021-07-30 07:08] LABS: BASOPHILS # (AUTO) 0.1 K/uL (0.00-0.22); BASOPHILS % (AUTO) 0.7 % (0.0-2.0); EOSINOPHILS # (AUTO) 0.3 K/uL (0-0.4); EOSINOPHILS % (AUTO) 2.6 % (0.0-4.0); HEMATOCRIT 28.5 % (36-48); HEMOGLOBIN 9.2 g/dL (12.0-16.0); LYMPHOCYTES # (AUTO) 1.7 K/uL (2.5-16.5); LYMPHOCYTES % (AUTO) 16.6 % (20.5-51.1); MEAN CORPUSCULAR HEMOGLOBIN 26 pg (27-31); MEAN CORPUSCULAR HGB CONC 32 g/dL (33-37); MEAN CORPUSCULAR VOLUME 81.8 fL (80-94); MONOCYTES # (AUTO) 0.8 K/uL (0.8-1.0); MONOCYTES % (AUTO) 7.7 % (1.7-9.3); NEUTROPHILS # (AUTO) 7.4 K/uL (1.8-7.7); NEUTROPHILS % (AUTO) 72.4 % (42.2-75.2); PLATELET COUNT (AUTO) 897 K/uL (140-450); RED BLOOD CELL COUNT(AUTO) 3.48 MIL/uL (4.20-5.40); RED CELL DISTRIBUTION WIDTH 21.1 % (11.6-13.7); WHITE BLOOD COUNT (AUTO) 10.3 K/uL (4.8-10.8)
[2021-07-30] MEDS: ALBUTEROL SULFATE/IPRATROPIU 3 ML SOL IH SCH ×3 (07:13→20:05)
[2021-07-30 07:25] LABS: ANION GAP 8.3 (8-16); CARBON DIOXIDE 31.3 mmol/L (21-32); CHLORIDE 108 mmol/L (98-107); CREATININE 0.7 mg/dL (0.6-1.3); GLUCOSE 94 mg/dL (74-106); POTASSIUM 2.6 mmol/L (3.5-5.1); SODIUM SERUM 145 mmol/L (136-145); UREA NITROGEN, BLOOD 9 mg/dL (7-18)
--- NOTE | 2021-07-30 07:25 | NUR ---
PT ASLEEP NO DISTRESS NOTED . RECEIVED REPORT FROM KITCHEN CLERK NURSE FOR CONTINUITY OF CARE. ALL SAFETY MEASURE IN PLACE.
[2021-07-30 07:39] LABS: MAGNESIUM 1.2 mg/dL (1.8-2.4); PHOSPHORUS 3.1 mg/dL (2.5-4.9)
--- NOTE | 2021-07-30 08:00 | NUR ---
Patient's Plan of Care was discussed and reviewed with EMPLOYEE BENEFITS MANAGER: REE KRUEGER
[2021-07-30] MEDS: ATORVASTATIN 20 MG TAB PO SCH (09:37)
[2021-07-30] MEDS: amLODIPine 5 MG TAB PO SCH (09:37)
[2021-07-30] MEDS: SPIRONOLACTONE 50 MG TAB PO SCH (09:37)
[2021-07-30] MEDS: FERROUS SULFATE 325 MG TABEC PO SCH ×2 (09:38→21:56)
[2021-07-30] MEDS: lisinopriL 10 MG TAB PO SCH (09:38)
[2021-07-30] MEDS: MAGNESIUM OXIDE 400 MG TAB PO SCH (09:38)
[2021-07-30] MEDS: POTASSIUM CHLORIDE 20% 40 MEQ/15 ML UDC GT SCH ×3 (09:39→17:38)
[2021-07-30] MEDS: PANTOPRAZOLE 40 MG INJ VIAL IVP SCH ×2 (09:45→21:55)
[2021-07-30] MEDS: MEROPENEM 1,000 MG in NACL 0.9% 100 ML IV SCH ×2 (09:45→21:00)
--- NOTE | 2021-07-30 09:45 | NUR ---
SCHEDULE MEDICATIONS GIVEN THROUGH IV WITH EDUCATION. PATIENT TOLERATED WELL. NO SIGN OF DISTRESS NOTED. PRECAUTION IN PLACE. CALL LIGHT WITHIN REACH. WILL CONTINUE TO MONITOR.
[2021-07-30] MEDS: FUROSEMIDE 20 MG/2 ML VIAL IVP SCH ×2 (09:46→21:55)
[2021-07-30] MEDS: DORZOLAMIDE 2% OP 10 ML BTL OP SCH (09:50)
--- NOTE | 2021-07-30 09:53 | NUR ---
GIVEN ALL DUE MEDICATION AND RN GAVE IV MEDICATION PT TOLERATED WELL NO ADVERSE REACTION NOTED.
--- NOTE | 2021-07-30 12:15 | NUR ---
PT GIVEN AM CARE AND REPOSITION ALL SAFETY MEASURE IN PLACE. CALL LIGHT WITH IN EASY REACH. PT REFUSED TO EAT BREAKFAST ENCOURAGED TO EAT LUNCH EXPLAINED THE RISK AND BENEFIT.
[2021-07-30] MEDS: MAG SULF 2000 MG/WATER PREMIX 100 ML IV SCH ×4 (14:36→23:00)
--- NOTE | 2021-07-30 14:36 | NUR ---
MAGNESIUM SULF IVBP GIVEN FOR MAG LEVEL 1.2. PATIENT TOLERATED WELL. NO SIGN OF DISTRESS NOTED. PRECAUTION IN PLACE. CALL LIGHT WITHIN REACH. WILL CONTINUE TO MONITOR.
--- NOTE | 2021-07-30 14:37 | NUR ---
RN GIVEN PT IV MEDICATION NO ADVERSE REACTION NOTED.
--- NOTE | 2021-07-30 15:00 | NUR ---
CAME IN AND VISITED PT. TRIED TO ENCOURAGED TO EAT. ALL SAFETY MEASURE IN PLACE.
[2021-07-30 16:00] VITALS: BP 109/41
--- NOTE | 2021-07-30 16:20 | NUR ---
PATIENT PULLED OUT IV. WILL ATTEMPT IV ACCESS.
--- NOTE | 2021-07-30 16:58 | NUR ---
NEW IV PLACED TO LEFT WRIST, 24G. WILL ATTEMPT TO PLACE A SECOND IV DUE TO MULTIPLE IV MEDICATIONS ORDERED.
[2021-07-30] MEDS ORDERED: PAMIDRONATE 60 MG in NACL 0.9% 1,000 ML IV SCH (17:00)
--- NOTE | 2021-07-30 17:40 | NUR ---
ATTEMPT 3 TIMES FOR SECOND IV LINE PLACEMENT. UNSUCCESSFUL. WILL CALL
--- NOTE | 2021-07-30 18:36 | NUR ---
SECOND BAG MAG SULF GIVEN. EDUCATION GIVEN TO PATIENT AND FAMILY MEMBER. FAMILY MEMBER VERBALIZED UNDERSTANDING. PATIENT IS NO SIGN OF DISTRESS NOTED. PRECAUTION IN PLACE. CALL LIGHT WITHIN REACH. WILL CONTINUE TO MONITOR.
--- NOTE | 2021-07-30 19:06 | NUR ---
ENDORSED PATIENT TO INCIDENT RESPONSE MANAGER NURSE FOR CONTINUITY OF CARE. INFORMED INCIDENT RESPONSE MANAGER OF IV MEDICATION THAT STILL NEEDS TO BE INFUSED. EXPLAINED THAT IV MEDICATION WAS NOT GIVEN DUE TO NO IV ACCESS. PATIENT IS STABLE AT THIS TIME.
[2021-07-30] MEDS: SENNA 8.6 MG TAB PO SCH (21:56)
[2021-07-30] MEDS: LATANOPROST 0.005% OP 2.5 ML BTL OP SCH (21:59)
[2021-07-31 01:02] VITALS: BP 119/59
[2021-07-31] MEDS: HYDRAGUARD CREAM TP SCH ×2 (01:04→13:43)
[2021-07-31] MEDS: NYSTATIN POW 100 MU/GM 15 GM BTL TP SCH ×2 (01:04→13:44)
[2021-07-31] MEDS ORDERED: NACL 0.9% 1,000 ML IV SCH (01:15)
[2021-07-31] MEDS: BLOOD GLUCOSE MONITORING 1 DEV DEV FS SCH ×4 (06:34→21:00)
[2021-07-31 07:15] LABS: MAGNESIUM 1.9 mg/dL (1.8-2.4); PHOSPHORUS 2.7 mg/dL (2.5-4.9)
--- NOTE | 2021-07-31 07:16 | NUR ---
PT ASLEEP NOT ON ANY DISCOMFORT. RECEIVED ENDORSEMENT FROM POLYMERIZATION KETTLE OPERATOR NURSE FOR CONTINUITY OF CARE. ALL SAFETY MEASURE IN PLACE. CALL LIGHT WITH IN EASY REACH.
[2021-07-31 07:17] LABS: BASOPHILS # (AUTO) 0.1 K/uL (0.00-0.22); BASOPHILS % (AUTO) 0.6 % (0.0-2.0); EOSINOPHILS # (AUTO) 0.5 K/uL (0-0.4); EOSINOPHILS % (AUTO) 4.7 % (0.0-4.0); HEMATOCRIT 27.5 % (36-48); HEMOGLOBIN 8.9 g/dL (12.0-16.0); LYMPHOCYTES # (AUTO) 1.7 K/uL (2.5-16.5); LYMPHOCYTES % (AUTO) 16.1 % (20.5-51.1); MEAN CORPUSCULAR HEMOGLOBIN 27 pg (27-31); MEAN CORPUSCULAR HGB CONC 32 g/dL (33-37); MEAN CORPUSCULAR VOLUME 82.5 fL (80-94); MONOCYTES # (AUTO) 0.9 K/uL (0.8-1.0); MONOCYTES % (AUTO) 8.3 % (1.7-9.3); NEUTROPHILS # (AUTO) 7.4 K/uL (1.8-7.7); NEUTROPHILS % (AUTO) 70.3 % (42.2-75.2); PLATELET COUNT (AUTO) 726 K/uL (140-450); RED BLOOD CELL COUNT(AUTO) 3.33 MIL/uL (4.20-5.40); RED CELL DISTRIBUTION WIDTH 21.6 % (11.6-13.7); WHITE BLOOD COUNT (AUTO) 10.6 K/uL (4.8-10.8)
--- NOTE | 2021-07-31 07:45 | NUR ---
DISCUSSED PLAN OF CARE WITH EVANS KEENAN.
[2021-07-31] MEDS: ALBUTEROL SULFATE/IPRATROPIU 3 ML SOL IH SCH ×4 (07:56→20:15)
[2021-07-31 08:00] VITALS: BP 132/51
[2021-07-31 08:00] LABS: ANION GAP 6.9 (8-16); CARBON DIOXIDE 30.6 mmol/L (21-32); CHLORIDE 107 mmol/L (98-107); CREATININE 0.6 mg/dL (0.6-1.3); GLUCOSE 91 mg/dL (74-106); SODIUM SERUM 142 mmol/L (136-145); UREA NITROGEN, BLOOD 9 mg/dL (7-18)
[2021-07-31 08:53] LABS: POTASSIUM 2.5 mmol/L (3.5-5.1)
--- NOTE | 2021-07-31 09:05 | NUR ---
RECEIVED CRITICAL LAB VALUE OF K 2.5 AND CA 12.[address] OWENS WAITING FOR RESPONSE.
[2021-07-31] MEDS: amLODIPine 5 MG TAB PO SCH (09:52)
[2021-07-31] MEDS: lisinopriL 10 MG TAB PO SCH (09:53)
[2021-07-31] MEDS: MAGNESIUM OXIDE 400 MG TAB PO SCH (09:53)
[2021-07-31] MEDS: FERROUS SULFATE 325 MG TABEC PO SCH ×2 (09:54→20:36)
[2021-07-31] MEDS: ATORVASTATIN 20 MG TAB PO SCH (09:54)
[2021-07-31] MEDS: POTASSIUM CHLORIDE 20% 40 MEQ/15 ML UDC GT SCH ×3 (09:56→17:33)
[2021-07-31] MEDS: DORZOLAMIDE 2% OP 10 ML BTL OP SCH (10:00)
--- NOTE | 2021-07-31 10:18 | NUR ---
PT UNABLE TO TAKE HER MEDICATION KEEP ON HEAVING AND GAGGING. TRIED TO ICE CHIP BUT REFUSED. WAITING FOR FEW MORE MINUTE TO GIVE MEDICATION
[2021-07-31] MEDS ORDERED: CINACALCET 30 MG TAB PO SCH (11:03)
[2021-07-31] MEDS: MEROPENEM 1,000 MG in NACL 0.9% 100 ML IV SCH ×2 (11:05→21:40)
[2021-07-31] MEDS: PANTOPRAZOLE 40 MG INJ VIAL IVP SCH ×2 (11:08→21:45)
[2021-07-31] MEDS: FUROSEMIDE 20 MG/2 ML VIAL IVP SCH (11:08)
[2021-07-31] MEDS: POTASSIUM CHL 20 MEQ/NACL 0.9% 1,000 ML IV SCH ×2 (11:09→23:32)
--- NOTE | 2021-07-31 11:09 | NUR ---
ALL IV MEDICATIONS ADMINISTERED BY RN. WILL CONTINUE TO MONITOR.
[2021-07-31] MEDS ORDERED: LISI10TA30 PO (11:59)
[2021-07-31] MEDS ORDERED: ALBU3SOL83 IH (11:59)
[2021-07-31] MEDS ORDERED: SEN30 PO (11:59)
[2021-07-31] MEDS ORDERED: MERO1PIG IV (11:59)
[2021-07-31] MEDS ORDERED: POTASSIUM CHLORIDE 20% 40 MEQ/15 ML UDC GT SCH (12:00)
--- NOTE | 2021-07-31 13:10 | NUR ---
PT AWAKE CHANGE AND CLEAN TREATMENT DONE. KEEP CLEAN AND COMFORTABLE. ALL SAFETY MEASURE IN PLACE. ENCOURAGED AND ASSISTED TO EAT BUT REFUSED TO EAT.
[2021-07-31 15:24] LABS: CARBON DIOXIDE 33.3 mmol/L (21-32); CHLORIDE 106 mmol/L (98-107); CREATININE 0.7 mg/dL (0.6-1.3); GLUCOSE 103 mg/dL (74-106); POTASSIUM 3.3 mmol/L (3.5-5.1); SODIUM SERUM 140 mmol/L (136-145); UREA NITROGEN, BLOOD 10 mg/dL (7-18)
--- NOTE | 2021-07-31 15:36 | NUR ---
RECEIVED CRITICAL LAB RESULT OF CALCIUM [address] OWENS WAITING FOR RESPONSE.
--- NOTE | 2021-07-31 15:46 | NUR ---
DR. OWENS RESPONDED BACK WITH NO NEW ORDER. WILL CONTINUE CURRENT MEDICATION AND CARE.
--- NOTE | 2021-07-31 15:51 | NUR ---
PT ON BED ASLEEP BUT ABLE TO WAKE UP WHEN CALLED. NO DISTRESS NOTED. NO ADVERSE REACTION ON ANTIBIOTIC THERAPY. NO COMPLAIN OF CHEST PAIN. ALL SAFETY MEASURE IN PLACE. CALL LIGHT WITH IN EASY REACH.
[2021-07-31 16:00] VITALS: BP 116/65
--- NOTE | 2021-07-31 16:20 | NUR ---
PT CHANGE AND OK CARE GIVEN TOLERATED WELL WITH 2 PERSON ASSIST. ALL SAFETY MEASURE IN PLACE. CALL LIGHT WITH IN EASY REACH.
[2021-07-31] MEDS: CINACALCET 30 MG TAB PO SCH (17:32)
--- NOTE | 2021-07-31 19:25 | NUR ---
PT ON BED ASLEEP GIVEN REPORT TO SUBSTANCE ABUSE PREVENTION COORDINATOR NURSE FOR CONTINUITY OF CARE.
--- NOTE | 2021-07-31 19:26 | NUR ---
RECEIVED PATIENT REPORT FROM AM SHIFT NURSE FOR CONTINUITY OF PATIENT CARE. PATIENT RESTING IN BED AT THIS TIME HOB AT SEMI-FOWLERS. PATIENT ON 2L O2 VIA N/C. NO ACUTE DISTRESS NOTED. DENIES ANY PAIN OR DISCOMFORT AT THIS TIME. ALL SAFETY MEASURES IN PLACE. CALL LIGHT WITHIN REACH. WILL CONTINUE TO MONITOR.
[2021-07-31 20:00] VITALS: BP 111/55
[2021-07-31] MEDS: SENNA 8.6 MG TAB PO SCH (20:36)
[2021-07-31] MEDS: HYDROcodone/APAP 7.5/325 MG 1 TAB PO PRN (20:36)
--- NOTE | 2021-07-31 21:36 | NUR ---
ALL DUE MEDICATIONS ADMINISTERED PER MD ORDER. TOLERATED WELL. NO ASE NOTED. ALL SAFETY MEASURES IN PLACE. CALL LIGHT WITHIN REACH. WILL CONTINUE TO MONITOR.
[2021-07-31] MEDS: LATANOPROST 0.005% OP 2.5 ML BTL OP SCH (21:48)
--- NOTE | 2021-07-31 22:00 | NUR ---
REFUSED TO HAVE SNACK OR DRINK GLUCERNA. ENCOURAGED TO DRINK BUT ABLE TO DRINK ONLY A LITTLE AMOUNT OF SUPPLEMENT.
--- NOTE | 2021-07-31 23:00 | NUR ---
IV INFILTRATED, WILL INSERT A NEW IV LINE.
[2021-08-01] VITALS: BP 130/54
[2021-08-01] MEDS: NYSTATIN POW 100 MU/GM 15 GM BTL TP SCH ×2 (01:00→13:00)
[2021-08-01] MEDS: HYDRAGUARD CREAM TP SCH ×2 (01:00→13:00)
--- NOTE | 2021-08-01 01:00 | NUR ---
TRIED TO PUT A NEW IV LINE, UNABLE. PATIENT IS A HARDSTICK.
--- NOTE | 2021-08-01 02:00 | NUR ---
NEW IV LINE INSERTED BY GARRICK SWANSON IN THE RIGHT HAND G24.
[2021-08-01] MEDS: ONDANSETRON 4 MG/2 ML VIAL IM/IVP PRN ×2 (02:27→09:58)
--- NOTE | 2021-08-01 02:27 | NUR ---
VOMITED MODERATE AMOUNT OF SOLIDS AND LIQUIDS, YELLOW COLOR. MEDICATED WITH ZOFRAN PER MD ORDER BY GARRICK HERRERA.
[2021-08-01] MEDS: FUROSEMIDE 20 MG/2 ML VIAL IVP SCH ×3 (02:30→20:55)
--- NOTE | 2021-08-01 03:15 | NUR ---
OLD IV SITE REMOVED. ESTABLISHED NEW IV SITE ON RIGHT HAND 22G. FLUSHING WELL. PATIENT TOLERATED WELL. DENIES ANY PAIN OR DISCOMFORT. WHITE COMMUNICATION BOARD UPDATED. ALL SAFETY MEASURES IN PLACE. CALL LIGHT WITHIN REACH. WILL CONTINUE TO MONITOR.
--- NOTE | 2021-08-01 05:15 | NUR ---
VOIDED A LARGE AMOUNT OF URINE. CLEANSED AND REPOSITIONED IN BED USING PILLOWS. MADE COMFORTABLE IN BED USING WARM BLANKETS.
[2021-08-01] MEDS: BLOOD GLUCOSE MONITORING 1 DEV DEV FS SCH ×4 (06:13→20:48)
--- NOTE | 2021-08-01 06:15 | NUR ---
OFFERED TO DRINK MORE GLUCERNA BUT REFUSED TO DRINK. NO APPETITE TO EAT AND DRINK.
--- NOTE | 2021-08-01 07:20 | NUR ---
ENDORSED PATIENT TO AM SHIFT NURSE FOR CONTINUITY OF CARE. PATIENT IS STABLE.
--- NOTE | 2021-08-01 07:25 | NUR ---
RECEIVE REPORT FROM RISK CONSULTANT NURSE FOR CONTINUITY OF PATIENT CARE. PATIENT SLEEPING. BREATHING EVEN AND UNLABORED. ALL SAFETY MEASURES IN PLACE. CALL LIGHT WITHIN REACH. WILL CONTINUE TO MONITOR.
[2021-08-01 07:32] LABS: BASOPHILS % (AUTO) 0.3 % (0.0-2.0); EOSINOPHILS # (AUTO) 0.3 K/uL (0-0.4); EOSINOPHILS % (AUTO) 2.4 % (0.0-4.0); HEMATOCRIT 29.8 % (36-48); HEMOGLOBIN 9.5 g/dL (12.0-16.0); LYMPHOCYTES # (AUTO) 1.4 K/uL (2.5-16.5); LYMPHOCYTES % (AUTO) 12.7 % (20.5-51.1); MEAN CORPUSCULAR HEMOGLOBIN 26 pg (27-31); MEAN CORPUSCULAR HGB CONC 32 g/dL (33-37); MEAN CORPUSCULAR VOLUME 82.3 fL (80-94); MONOCYTES # (AUTO) 0.8 K/uL (0.8-1.0); MONOCYTES % (AUTO) 7.4 % (1.7-9.3); NEUTROPHILS # (AUTO) 8.4 K/uL (1.8-7.7); NEUTROPHILS % (AUTO) 77.2 % (42.2-75.2); PLATELET COUNT (AUTO) 921 K/uL (140-450); RED BLOOD CELL COUNT(AUTO) 3.62 MIL/uL (4.20-5.40); RED CELL DISTRIBUTION WIDTH 21.3 % (11.6-13.7); WHITE BLOOD COUNT (AUTO) 10.9 K/uL (4.8-10.8)
[2021-08-01 07:39] LABS: MAGNESIUM 1.3 mg/dL (1.8-2.4); PHOSPHORUS 2.9 mg/dL (2.5-4.9)
[2021-08-01 07:41] LABS: CARBON DIOXIDE 32.8 mmol/L (21-32); CHLORIDE 112 mmol/L (98-107); CREATININE 0.8 mg/dL (0.6-1.3); GLUCOSE 86 mg/dL (74-106); SODIUM SERUM 150 mmol/L (136-145); UREA NITROGEN, BLOOD 10 mg/dL (7-18)
[2021-08-01 07:53] LABS: POTASSIUM 2.8 mmol/L (3.5-5.1)
[2021-08-01 08:00] VITALS: BP 111/49
[2021-08-01] MEDS: lisinopriL 10 MG TAB PO SCH (09:00)
[2021-08-01] MEDS: DORZOLAMIDE 2% OP 10 ML BTL OP SCH (09:00)
[2021-08-01] MEDS: amLODIPine 5 MG TAB PO SCH (09:00)
[2021-08-01] MEDS: SPIRONOLACTONE 50 MG TAB PO SCH (09:00)
[2021-08-01] MEDS: POTASSIUM CHLORIDE 20% 40 MEQ/15 ML UDC GT SCH ×3 (09:53→17:59)
[2021-08-01] MEDS: PANTOPRAZOLE 40 MG INJ VIAL IVP SCH ×2 (09:55→21:05)
[2021-08-01] MEDS: MAGNESIUM OXIDE 400 MG TAB PO SCH (09:56)
[2021-08-01] MEDS: FERROUS SULFATE 325 MG TABEC PO SCH ×2 (09:57→21:05)
[2021-08-01] MEDS: MEROPENEM 1,000 MG in NACL 0.9% 100 ML IV SCH ×2 (09:57→21:05)
[2021-08-01] MEDS: CINACALCET 30 MG TAB PO SCH ×2 (09:57→17:59)
--- NOTE | 2021-08-01 09:59 | NUR ---
PATIENT AWAKE. PATIENT HAS EPISODES OF CONFUSION AND FORGETFULNESS. SCHEDULED MEDICATION GIVEN. BLOOD PRESSURE MEDICATION HELD DUE TO PATIENTS BLOOD PRESSURES READING 110/59. PT AT BEDSIDE. ALL SAFETY MEASURES IN PLACE. CALL LIGHT WITHIN REACH. WILL CONTINUE TO MONITOR.
[2021-08-01] MEDS: POTASSIUM CHL 40 MEQ/ D5-1/2NS 1,000 ML IV SCH ×2 (10:00→21:31)
[2021-08-01] MEDS: ALBUTEROL SULFATE/IPRATROPIU 3 ML SOL IH SCH ×2 (10:04→14:28)
--- NOTE | 2021-08-01 11:39 | NUR ---
PATIENT AWAKE. PATIENT HAS EPISODES OF CONFUSION AND FORGETFULNESS. ALL SAFETY MEASURES IN PLACE. CALL LIGHT WITHIN REACH. WILL CONTINUE TO MONITOR.
--- NOTE | 2021-08-01 12:35 | NUR ---
08/01/21 RD F/U COMPLETED PLEASE REFER TO NUTRITION ASSESSMENT UNDER CARE ACTIVITY FOR ESTIMATED NUTRITIONAL NEEDS. 1.[facility] TOL[facility] 2.RECOMMEND SWALLOW EVAL 3. CONSIDER GLUCERNA STRAWBERRY TID -PROVIDES 660 KCALS AND 30GM PRO 4.ENCOURAGE INCREASED PO INTAKE 5. RD TO FOLLOW-UP 2-3 DAYS, HIGH RISK REVIEWED BY DECLAN VALENZUELA, RD
--- NOTE | 2021-08-01 13:15 | NUR ---
ENDORSED TO CHRISTY RN FOR CONTINUITY OF PATIENT CARE. PATIENT STABLE.
[2021-08-01] MEDS ORDERED: POTASSIUM CHLORIDE 10 MEQ TABER PO SCH (14:00)
[2021-08-01] MEDS ORDERED: MAG SULF 2000 MG/WATER PREMIX 100 ML IV SCH (14:00)
--- NOTE | 2021-08-01 14:53 | NUR ---
NG TUBE WAS INSERTED AND PLACEMENT CONFIRMED BY CXR. PT TOLERATED WELL. NO S/S OF DISTRESS. CALL LIGHT IN REACH. ALL SAFETY MEASURES IN PLACE
[2021-08-01 16:00] VITALS: BP 134/68
--- NOTE | 2021-08-01 17:26 | NUR ---
PT RESTING IN BED. NO S/S OF DISTRESS. BREATHING SYMMETRICAL. CALL LIGHT IN REACH ALL SAFETY MEASURES IN PLACE. IV RUNNING PER MD ORDER
--- NOTE | 2021-08-01 19:39 | NUR ---
ENDORSED PT TO DISPLAY DEPARTMENT MANAGER NURSE. NO S/S OF DISTRESS. BREATHING SYMMETRICAL. CALL LIGHT IN REACH ALL SAFETY MEASURES IN PLACE. IV RUNNING PER MD ORDER Addendum: 08/01/21 at 1940 by Amparo Wing RN RN ENDORSED FOLLOW UP WITH FNS FOR TUBE FEEDING. STILL NOT ON UNIT
--- NOTE | 2021-08-01 19:40 | NUR ---
RECEIVED BEDSIDE REPORT FROM DAY RN. PATIENT IS RESTING IN BED AWAKE RTIS. PT IS ESTONIAN SPEAKING AAOX0. RESPIRATIONS ARE EQUAL AND UNLABORED ON 2L NC SAT WELL. DX PNA. ABD IS ROUND SOFT. BOWEL SOUNDS ACTIVE X4. PT WITH NGT ON R NOSTRIL FOR POOR PO INTAKE. PENDING TUBE FEEDING FORMULA FROM FNS. IV TO R HAND 24 G IVF INFUSING PER ORDERS. SKIN IS WARM, DRY AND INTACT. PATIENT IS INCONTINENT TO B/B. PATIENT IS BED REST. POC REVIEWED PT UNABLE TO COMPREHEND. ON CONTACT ISO FOR E.COLI IN THE URINE. SAFETY MEASURES IN PLACE. CALL LIGHT IS WITHIN REACH.
[2021-08-01 20:00] VITALS: BP 103/69
[2021-08-01] MEDS: LATANOPROST 0.005% OP 2.5 ML BTL OP SCH (21:05)
[2021-08-01] MEDS: SENNA 8.6 MG TAB PO SCH (21:05)
--- NOTE | 2021-08-01 21:05 | NUR ---
IV ON R HAND WAS ACCIDENTALLY PULLED OUT DURING CLEANING PATIENT. IV CATH INTACT. MINIMAL BLEEDING WELL CONTROLLED. NEW IV ON L HAND 24 G ON 2 ATTEMPT. PT TOLERATED WELL. CALEB MEDICATIONS GIVEN PER ORDERS. PT WITH 20CC OF GASTRIC RESIDUALS. TUBE FEEDING STARTED PER ORDERS AT RATE 10CC/H WILL INCREASE PER ORDERS. IV LASIX HELD FOR BP 103/69 HR 98. ALL NEEDS MET. WILL CONTINUE TO MONITOR.
--- NOTE | 2021-08-01 22:44 | NUR ---
PATIENT APPEARS MORE AWAKE. PT REMAINS ALTERED PT IS AAOX1 SELF. PT OBSERVED TALKING TO SELF. NO DISTRESS NOTED. WILL CONTINUE TO MONITOR.
--- NOTE | 2021-08-01 23:00 | NUR ---
PATIENT PULLED OUT NGT. [place] MILLER KNITTING MACHINE FIXER HEAD FOR ORDER FOR MITTEN PT IS AAOX0 PULLING ON LINES. ORDER RECEIVED.
[2021-08-01] MEDS ORDERED: MAG SULF 2000 MG/WATER PREMIX 50 ML IV SCH (23:20)
[2021-08-01] MEDS ORDERED: FLUCONAZOLE 200 MG/NS PREMIX 100 ML IV SCH (23:30)
[2021-08-02] VITALS: BP 113/69
--- NOTE | 2021-08-02 | NUR ---
VITAL SIGNS ARE WITHIN NORMAL LIMITS. ALL SAFETY MEASURES ARE IN PLACE. WILL CONTINUE TO MONITOR.
[2021-08-02] MEDS: NYSTATIN POW 100 MU/GM 15 GM BTL TP SCH ×2 (00:42→13:07)
[2021-08-02] MEDS: HYDRAGUARD CREAM TP SCH ×2 (00:42→13:07)
--- NOTE | 2021-08-02 01:06 | NUR ---
PT PULLED OUT IV NEW IV ON L FA 24G ON FIRST ATTEMPT WILL CONTINUE TO MONITOR.
--- NOTE | 2021-08-02 02:55 | NUR ---
NEW NGT INSERTED AUSCULTATED . PT TOLERATED WELL .STAT CXR ORDERED. PT TOLERATED WELL. WILL CONTINUE TO MONITOR.
[2021-08-02] MEDS: ONDANSETRON 4 MG/2 ML VIAL IM/IVP PRN (03:01)
--- NOTE | 2021-08-02 04:00 | NUR ---
VITAL SIGNS ARE WITHIN NORMAL LIMITS. PT APPEARS TO BE ASLEEP. NO S/SX OF DISTRESS. REMAINS ON MITTEN D/T PULLING OUT LINES. WILL CONTINUE TO MONITOR.
--- NOTE | 2021-08-02 06:20 | NUR ---
TUBE FEEDING WAS RESUME AT 10ML/H WILL INCREASE PER ORDERS. HOB ELEVATED. WILL CONTINUE TO MONITOR.
[2021-08-02] MEDS: BLOOD GLUCOSE MONITORING 1 DEV DEV FS SCH ×4 (06:49→21:24)
[2021-08-02 06:56] LABS: ANION GAP 2.8 (8-16); CARBON DIOXIDE 34.8 mmol/L (21-32); CHLORIDE 111 mmol/L (98-107); CREATININE 0.8 mg/dL (0.6-1.3); GLUCOSE 105 mg/dL (74-106); POTASSIUM 3.6 mmol/L (3.5-5.1); SODIUM SERUM 145 mmol/L (136-145); UREA NITROGEN, BLOOD 11 mg/dL (7-18)
[2021-08-02 06:57] LABS: BASOPHILS % (AUTO) 0.3 % (0.0-2.0); EOSINOPHILS # (AUTO) 0.4 K/uL (0-0.4); EOSINOPHILS % (AUTO) 3.7 % (0.0-4.0); HEMATOCRIT 29.7 % (36-48); HEMOGLOBIN 9.5 g/dL (12.0-16.0); LYMPHOCYTES # (AUTO) 1.5 K/uL (2.5-16.5); LYMPHOCYTES % (AUTO) 14.8 % (20.5-51.1); MEAN CORPUSCULAR HEMOGLOBIN 26 pg (27-31); MEAN CORPUSCULAR HGB CONC 32 g/dL (33-37); MEAN CORPUSCULAR VOLUME 82.9 fL (80-94); MONOCYTES # (AUTO) 0.8 K/uL (0.8-1.0); MONOCYTES % (AUTO) 8.2 % (1.7-9.3); NEUTROPHILS # (AUTO) 7.4 K/uL (1.8-7.7); PLATELET COUNT (AUTO) 847 K/uL (140-450); RED BLOOD CELL COUNT(AUTO) 3.59 MIL/uL (4.20-5.40); RED CELL DISTRIBUTION WIDTH 20.9 % (11.6-13.7); WHITE BLOOD COUNT (AUTO) 10.1 K/uL (4.8-10.8)
[2021-08-02] MEDS: ALBUTEROL SULFATE/IPRATROPIU 3 ML SOL IH SCH ×3 (07:00→20:01)
--- NOTE | 2021-08-02 07:43 | NUR ---
GAVE BEDSIDE REPORT TO DAY RN. PT ENDORSED IN STABLE CONDITION.
[2021-08-02 08:00] VITALS: BP 97/48
--- NOTE | 2021-08-02 08:00 | NUR ---
NGT residual 0ml. Increased feeding rate of Glucerna 1.2 to 20ml/hr. Patient lethargic with random unintelligible vocalizations. Bilateral mittens in place. HOB remains elevated @ 30.
[2021-08-02 08:08] LABS: MAGNESIUM 2.1 mg/dL (1.8-2.4); PHOSPHORUS 2.3 mg/dL (2.5-4.9)
[2021-08-02] MEDS: lisinopriL 10 MG TAB PO SCH ×2 (09:00→09:16)
[2021-08-02] MEDS: amLODIPine 5 MG TAB PO SCH ×2 (09:00→09:17)
--- NOTE | 2021-08-02 09:00 | NUR ---
NGT residual remains 0ml. Increased feeding rate to 30ml/hr. Patient asleep, respirations even & nonlabored in room air. Left wrist IV 24G intact with ongoing D5 1/2 NS + KCL 40mEq @ 80ml/hr.
[2021-08-02] MEDS: POTASSIUM CHLORIDE 20% 40 MEQ/15 ML UDC GT SCH (09:16)
[2021-08-02] MEDS: MAGNESIUM OXIDE 400 MG TAB PO SCH (09:16)
[2021-08-02] MEDS: SPIRONOLACTONE 50 MG TAB PO SCH (09:17)
[2021-08-02] MEDS: CINACALCET 30 MG TAB PO SCH ×2 (09:17→17:51)
[2021-08-02] MEDS: PANTOPRAZOLE 40 MG INJ VIAL IVP SCH ×2 (09:18→21:43)
[2021-08-02] MEDS: FUROSEMIDE 20 MG/2 ML VIAL IVP SCH ×2 (09:18→21:40)
[2021-08-02] MEDS: FERROUS SULFATE 325 MG TABEC PO SCH ×2 (09:18→21:45)
[2021-08-02] MEDS: DORZOLAMIDE 2% OP 10 ML BTL OP SCH (09:21)
[2021-08-02] MEDS: MEROPENEM 1,000 MG in NACL 0.9% 100 ML IV SCH ×2 (09:21→21:36)
--- NOTE | 2021-08-02 10:00 | NUR ---
NGT residual remains 0ml. Increased feeding rate to 40ml/hr. Patient lethargic, opens eyes when name is called. Able to follow command to open mouth and move her hands. Remains confused and tries to pull on NGT. Bilateral mittens in place.
[2021-08-02] MEDS: POTASSIUM CHL 40 MEQ/ D5-1/2NS 1,000 ML IV SCH (10:56)
--- NOTE | 2021-08-02 11:00 | NUR ---
NGT residual 0ml. Feeding rate increased to goal rate of 55ml/hr. Patient tolerates feeding well. Abd soft, no episodes of vomiting.
--- NOTE | 2021-08-02 15:30 | NUR ---
Patient's at bedside to visit patient. Patient remains lethargic, opens eyes briefly and responds verbally to questions. Bilateral mittens remain in place.
[2021-08-02 16:00] VITALS: BP 108/53
--- NOTE | 2021-08-02 19:30 | NUR ---
RECEIVED BEDSIDE REPORT FROM DAY SHIFT RN FOR CONTINUITY OF CARE. PT IS SLEEPING AND MUMBLES IN HER SLEEP. PT IS ON 2L NC. FEEDING RUNNING MD ORDER. IVF RUNNING MD ORDER. PT SHOWS NO SIGNS OF DISTRESS. CHEST RISE AND FALL SYMMETRICAL. NO SIGNS OF SOB OR LABORED BREATHING. ALL SAFETY MEASURES TAKEN. WILL CONTINUE TO MONITOR THE PT AND PROVIDE PLAN OF CARE.
[2021-08-02] MEDS: SENNA 8.6 MG TAB PO SCH (21:44)
--- NOTE | 2021-08-02 21:50 | NUR ---
ALL DUE MEDS GIVEN MD ORDER. NO ADVERSE REACTION NOTED. PT IS NOT IN ANY DISTRESS. BED AT THE LOWEST POSITION. HEAD OF BED RAISED. WILL CONTINUE TO OBSERVE THE PT.
[2021-08-02] MEDS: LATANOPROST 0.005% OP 2.5 ML BTL OP SCH (21:55)
[2021-08-02] MEDS ORDERED: CRUSHER, PILL MC ONE (22:08)
[2021-08-03] VITALS: BP 120/56
[2021-08-03] MEDS ORDERED: FLUCONAZOLE 200 MG/NS PREMIX 100 ML IV ONE (00:02)
[2021-08-03] MEDS: FLUCONAZOLE 100 MG/NS PREMIX 50 ML IV SCH ×2 (00:19→23:20)
--- NOTE | 2021-08-03 00:20 | NUR ---
ALL DUE MEDS GIVEN. NO ADVERSE REACTION NOTED. PT WAS CLEAN AND CHANGED. NO SIGNS OF DISTRESS. NO SIGNS OF SOB OR LABORED BREATHING. BED AT THE LOWEST POSITION. HEAD OF BED RAISED. WILL CONTINUE TO OBSERVE THE PT.
[2021-08-03] MEDS: HYDRAGUARD CREAM TP SCH ×2 (01:06→13:16)
[2021-08-03] MEDS: NYSTATIN POW 100 MU/GM 15 GM BTL TP SCH ×2 (01:06→13:17)
--- NOTE | 2021-08-03 02:05 | NUR ---
PT IS SLEEPING IN BED. IVF RUNNING MD ORDER. FEEDING RUNNING MD ORDER. NO SIGNS OF DISTRESS ON PT. VISIBLE CHEST RISE AND FALL. NO SIGNS OF SOB OR LABORED BREATHING. BED AT THE LOWEST POSITION. HEAD OF BED RAISED. WILL CONTINUE TO OBSERVE THE PT.
--- NOTE | 2021-08-03 03:31 | NUR ---
PT IS SLEEPING IN BED AND MUMBLING. PT IS ON NC 2L. IVF RUNNING MD ORDER. FEEDING RUNNING MD ORDER. PT IS NOT IN ANY DISTRESS. VISIBLE CHEST RISE AND FALL. NO SIGNS OF SOB OR LABORED BREATHING. WILL CONTINUE TO OBSERVE THE PT.
[2021-08-03] MEDS: POTASSIUM CHL 40 MEQ/ D5-1/2NS 1,000 ML IV SCH (04:45)
--- NOTE | 2021-08-03 05:00 | NUR ---
WHILE CLEANING THE PT, NG TUBE GOT ACCIDENTLY PULLED OUT. PT STARTED VOMITING RIGHT AFTER. SUCTION WAS PROVIDED NEEDED.
[2021-08-03] MEDS: ALBUTEROL SULFATE/IPRATROPIU 3 ML SOL IH SCH ×3 (07:00→19:00)
[2021-08-03] MEDS: BLOOD GLUCOSE MONITORING 1 DEV DEV FS SCH ×4 (07:30→21:29)
--- NOTE | 2021-08-03 07:30 | NUR ---
ENDORSED PT TO DAY SHIFT RN. PT IS STABLE. SIGNING OUT.
--- NOTE | 2021-08-03 07:35 | NUR ---
RECEIVED PT FROM NIGHT RN, PT IS ASLEEP AND LYING ON THE BED WITH SIDE RAILS UP AND CALL LIGHT WITHIN REACH, IV LINE NOTED ON THE LEFT WRIST G. 24 WITH D51/2 NS WITH 40 MEQ KCL INFUSING AT 60ML/HR, PT IS ON RA, SIDE RAILS UP AND CALL LIGHT WITHIN REACH, NO SIGN OF DISTRESS NOTED AND WILL CONTINUE TO MONITOR PT.
[2021-08-03 08:00] VITALS: BP 152/58
[2021-08-03] MEDS: lisinopriL 10 MG TAB PO SCH (09:00)
[2021-08-03] MEDS: MAGNESIUM OXIDE 400 MG TAB PO SCH (09:00)
[2021-08-03] MEDS: POTASSIUM CHLORIDE 20% 40 MEQ/15 ML UDC GT SCH (09:00)
[2021-08-03] MEDS: MEROPENEM 1,000 MG in NACL 0.9% 100 ML IV SCH ×2 (10:40→21:01)
--- NOTE | 2021-08-03 10:40 | NUR ---
PT WAS CLEANED AND REPOSITIONED.
[2021-08-03] MEDS: FUROSEMIDE 20 MG/2 ML VIAL IVP SCH ×2 (10:41→21:02)
--- NOTE | 2021-08-03 10:41 | NUR ---
(08/03/21) RD FOLLOW UP COMPLETED PLEASE REFER TO NUTRITION PROGRESS NOTE UNDER CARE ACTIVITY FOR ESTIMATED NUTRITION NEEDS. RD RECOMMENDATIONS: 1. IF/WHEN MEDICALLY APPROPRIATE, RESUME GLUCERNA 1.2 AT 55 ML/HR WITH FWF 200 ML Q6H TOLERATED. THIS PROVIDES 1320 ML TOTAL VOLUME, 1584 KCAL, 95 GM PROTEIN, AND 1275 ML FREE WATER (+800 ML FROM FWF), WHICH MEETS 86% EST KCAL NEEDS AND 78% EST PROTEIN NEEDS; ADEQUATE. CARITO DUONG MS, RDN
[2021-08-03] MEDS: FERROUS SULFATE 325 MG TABEC PO SCH ×2 (10:55→21:00)
[2021-08-03] MEDS: SPIRONOLACTONE 50 MG TAB PO SCH (10:55)
[2021-08-03] MEDS: CINACALCET 30 MG TAB PO SCH ×2 (10:55→16:31)
[2021-08-03] MEDS: amLODIPine 5 MG TAB PO SCH (10:56)
[2021-08-03] MEDS: DORZOLAMIDE 2% OP 10 ML BTL OP SCH (10:57)
--- NOTE | 2021-08-03 11:15 | NUR ---
DID A BEDSIDE SWALLOW EVALUATION TO PT NOW, PT WAS GIVEN AN APPLE SAUCE BUT PT DID NOT TOLERATE IT. DR. ROSSI WAS MADE AWARE AND MADE AN ORDER TO KEEP PT NPO EXCEPT MEDS.
[2021-08-03] MEDS: PANTOPRAZOLE 40 MG INJ VIAL IVP SCH ×2 (11:26→21:02)
[2021-08-03 12:00] VITALS: BP 116/48
[2021-08-03] MEDS: DEXT 5% / NACL 0.45% 1,000 ML IV SCH (14:00)
[2021-08-03 14:15] LABS: BASOPHILS # (AUTO) 0.1 K/uL (0.00-0.22); EOSINOPHILS # (AUTO) 0.7 K/uL (0-0.4); LYMPHOCYTES # (AUTO) 2.1 K/uL (2.5-16.5); WHITE BLOOD COUNT (AUTO) 10.9 K/uL (4.8-10.8)
[2021-08-03 14:25] LABS: BASOPHILS % (AUTO) 0.5 % (0.0-2.0); EOSINOPHILS % (AUTO) 6.5 % (0.0-4.0); HEMOGLOBIN 9.8 g/dL (12.0-16.0); MEAN CORPUSCULAR HEMOGLOBIN 26 pg (27-31); MEAN CORPUSCULAR HGB CONC 32 g/dL (33-37); MEAN CORPUSCULAR VOLUME 82.4 fL (80-94); MONOCYTES # (AUTO) 0.8 K/uL (0.8-1.0); MONOCYTES % (AUTO) 7.5 % (1.7-9.3); NEUTROPHILS # (AUTO) 7.3 K/uL (1.8-7.7); NEUTROPHILS % (AUTO) 66.5 % (42.2-75.2); PLATELET COUNT (AUTO) 808 K/uL (140-450); RED BLOOD CELL COUNT(AUTO) 3.76 MIL/uL (4.20-5.40); RED CELL DISTRIBUTION WIDTH 21.4 % (11.6-13.7)
[2021-08-03 14:33] LABS: ANION GAP 3.9 (8-16); CARBON DIOXIDE 33.5 mmol/L (21-32); CHLORIDE 109 mmol/L (98-107); CREATININE 0.9 mg/dL (0.6-1.3); GLUCOSE 99 mg/dL (74-106); POTASSIUM 3.4 mmol/L (3.5-5.1); SODIUM SERUM 143 mmol/L (136-145); UREA NITROGEN, BLOOD 13 mg/dL (7-18)
[2021-08-03 14:34] LABS: MAGNESIUM 1.5 mg/dL (1.8-2.4); PHOSPHORUS 2.4 mg/dL (2.5-4.9)
[2021-08-03 16:00] VITALS: BP 108/56
--- NOTE | 2021-08-03 16:31 | NUR ---
PT'S SCHEDULED MEDICATION WAS NOT GIVEN DUE TO PT IS NPO AND IS NOT FULLY AWAKE AND ST EVALUATION IS PENDING.
--- NOTE | 2021-08-03 19:30 | NUR ---
ENDORSED PT TO NIGHT RN FOR CONTINUITY OF CARE.
--- NOTE | 2021-08-03 19:35 | NUR ---
RECEIVED BEDSIDE REPORT FROM DAY SHIFT RN FOR CONTINUITY OF CARE. PT IS SLEEPING. PT IS ON 2L NC. MD ORDER. IVF. PT SHOWS NO SIGNS OF DISTRESS. CHEST RISE AND FALL SYMMETRICAL. NO SIGNS OF SOB OR LABORED BREATHING. ALL SAFETY MEASURES IN PLACE.CALL LIGHT WITHIN REACH. WILL CONTINUE TO MONITOR.
[2021-08-03] MEDS: SENNA 8.6 MG TAB PO SCH (21:00)
--- NOTE | 2021-08-03 21:10 | NUR ---
SCHEDULED IV MEDICATIONS GIVEN.NO DISTRESS NOTED. PT TOLERATED WELL.PT'S SCHEDULED PO MEDICATION WAS NOT GIVEN DUE TO PT IS NPO AND IS NOT FULLY AWAKE AND ST EVALUATION IS PENDING.
[2021-08-03] MEDS: LATANOPROST 0.005% OP 2.5 ML BTL OP SCH (21:29)
--- NOTE | 2021-08-03 23:30 | NUR ---
SCHEDULED MEDICATION GIVEN. PT TOLERATED WELL. NO DISTRESS NOTED. WILL CONTINUE TO MONITOR.
[2021-08-04] VITALS: BP 116/60
--- NOTE | 2021-08-04 01:30 | NUR ---
PT ASLEEP.VISIBLE CHEST RISE AND FALL NOTED.NO DISTRESS NOTED. ALL PRECAUTIONS IN PLACE. WILL CONTINUE TO MONITOR.
[2021-08-04] MEDS: NYSTATIN POW 100 MU/GM 15 GM BTL TP SCH ×2 (01:43→13:00)
[2021-08-04] MEDS: HYDRAGUARD CREAM TP SCH ×2 (01:43→13:00)
[2021-08-04] MEDS: DEXT 5% / NACL 0.45% 1,000 ML IV SCH ×2 (02:05→16:00)
--- NOTE | 2021-08-04 03:30 | NUR ---
PT STILL ASLEEP.VISIBLE CHEST RISE AND FALL NOTED.NO DISTRESS NOTED. ALL PRECAUTIONS IN PLACE. WILL CONTINUE TO MONITOR.
--- NOTE | 2021-08-04 06:48 | NUR ---
PT STABLE. NO ACUTE EVENTS THROUGHOUT THE NIGHT. PT IS NOT IN ANY DISTRESS. PT HAS NO COMPLAINS AT THIS TIME. ALL NEEDS ATTENDED. ALL PRECAUTIONS IN PLACE. WILL ENDORSE TO AM SHIFT NURSE.
[2021-08-04 06:54] LABS: BASOPHILS % (AUTO) 0.4 % (0.0-2.0); EOSINOPHILS # (AUTO) 0.8 K/uL (0-0.4); EOSINOPHILS % (AUTO) 8.2 % (0.0-4.0); HEMATOCRIT 28.6 % (36-48); HEMOGLOBIN 9.2 g/dL (12.0-16.0); LYMPHOCYTES # (AUTO) 2.1 K/uL (2.5-16.5); LYMPHOCYTES % (AUTO) 21.3 % (20.5-51.1); MEAN CORPUSCULAR HEMOGLOBIN 27 pg (27-31); MEAN CORPUSCULAR HGB CONC 32 g/dL (33-37); MONOCYTES # (AUTO) 0.7 K/uL (0.8-1.0); MONOCYTES % (AUTO) 7.4 % (1.7-9.3); NEUTROPHILS # (AUTO) 6.1 K/uL (1.8-7.7); NEUTROPHILS % (AUTO) 62.7 % (42.2-75.2); PLATELET COUNT (AUTO) 689 K/uL (140-450); RED BLOOD CELL COUNT(AUTO) 3.45 MIL/uL (4.20-5.40); RED CELL DISTRIBUTION WIDTH 21.6 % (11.6-13.7); WHITE BLOOD COUNT (AUTO) 9.8 K/uL (4.8-10.8)
[2021-08-04 07:08] LABS: MAGNESIUM 1.5 mg/dL (1.8-2.4); PHOSPHORUS 2.6 mg/dL (2.5-4.9)
[2021-08-04 07:16] LABS: ANION GAP 5.4 (8-16); CARBON DIOXIDE 30.9 mmol/L (21-32); CHLORIDE 110 mmol/L (98-107); CREATININE 0.9 mg/dL (0.6-1.3); GLUCOSE 96 mg/dL (74-106); POTASSIUM 3.3 mmol/L (3.5-5.1); SODIUM SERUM 143 mmol/L (136-145); UREA NITROGEN, BLOOD 12 mg/dL (7-18)
--- NOTE | 2021-08-04 07:32 | NUR ---
PT ENDORSED TO AM SHIFT NURSE FOR CONTINUITY OF CARE. PT IS STABLE.
[2021-08-04 08:00] VITALS: BP 116/64
[2021-08-04] MEDS: CINACALCET 30 MG TAB PO SCH ×2 (09:00→16:37)
[2021-08-04] MEDS: FERROUS SULFATE 325 MG TABEC PO SCH ×2 (09:00→21:00)
[2021-08-04] MEDS: SPIRONOLACTONE 50 MG TAB PO SCH (09:00)
[2021-08-04] MEDS: POTASSIUM CHLORIDE 20% 40 MEQ/15 ML UDC GT SCH (09:00)
[2021-08-04] MEDS: lisinopriL 10 MG TAB PO SCH (09:00)
[2021-08-04] MEDS: DORZOLAMIDE 2% OP 10 ML BTL OP SCH (09:00)
[2021-08-04] MEDS: amLODIPine 5 MG TAB PO SCH (09:00)
[2021-08-04] MEDS: MAGNESIUM OXIDE 400 MG TAB PO SCH (09:00)
[2021-08-04] MEDS: PANTOPRAZOLE 40 MG INJ VIAL IVP SCH ×2 (10:03→21:10)
[2021-08-04] MEDS: FUROSEMIDE 20 MG/2 ML VIAL IVP SCH ×2 (10:04→21:11)
[2021-08-04] MEDS: MEROPENEM 1,000 MG in NACL 0.9% 100 ML IV SCH ×2 (10:19→21:10)
[2021-08-04] MEDS: BLOOD GLUCOSE MONITORING 1 DEV DEV FS SCH ×3 (11:30→21:58)
--- NOTE | 2021-08-04 13:12 | NUR ---
1312 PM : PT WAS ASLEEP IN ROOM WITH SPO2 OF 100% ON 2L NC. EQUAL BILAT CHEST RISE. NO SIGNS OF RESP DISTRESS, NO TX GIVEN AT THIS TIME.
[2021-08-04 16:00] VITALS: BP 117/54
--- NOTE | 2021-08-04 19:15 | NUR ---
PATIENT IS RESTING IN BED, AAO x1, DENIES PAIN/DISCOMFORT. RESPIRATIONS EVEN AND UL ON 2LNC. NO SIGNIFICANT CHANGES THROUGHOUT SHIFT. ALL NEEDS MET. BED IN LOWEST POSITION, CALL LIGHT IN REACH, SAFETY MEASURES IN PLACE. REPORT GIVEN TO PM NURSE FOR CONTINUITY OF CARE.
--- NOTE | 2021-08-04 19:16 | NUR ---
RECEIVED BEDSIDE REPORT FROM DAY SHIFT RN FOR CONTINUITY OF CARE. AAO X 1. RESPIRATIONS EVEN AND UNLABORED.PT IS ON 2L NC.IVF INFUSING WELL. PT SHOWS NO SIGNS OF DISTRESS. ALL SAFETY MEASURES IN PLACE.CALL LIGHT WITHIN REACH. WILL CONTINUE TO MONITOR.
[2021-08-04] MEDS: ALBUTEROL SULFATE/IPRATROPIU 3 ML SOL IH SCH (19:30)
[2021-08-04] MEDS: SENNA 8.6 MG TAB PO SCH (21:00)
--- NOTE | 2021-08-04 21:15 | NUR ---
SCHEDULED IV MEDICATIONS GIVEN.NO DISTRESS NOTED. PT TOLERATED WELL.CRUSHED PO MEDICINE AND ADDED TO APPLE SAUCE BUT PT WASN'T ABLE TO TAKE IT.ALL PRECAUTIONS IN PLACE.WILL CONTINUE TO MONITOR.
[2021-08-04] MEDS: LATANOPROST 0.005% OP 2.5 ML BTL OP SCH (21:59)
--- NOTE | 2021-08-04 22:00 | NUR ---
CLEANED PT AND CHANGED DIAPER. PT TOLERATED WELL. NO DISTRESS NOTED. ALL PRECAUTIONS IN PLACE. WILL CONTINUE TO MONITOR.
[2021-08-04] MEDS: FLUCONAZOLE 100 MG/NS PREMIX 50 ML IV SCH (23:29)
[2021-08-05] VITALS: BP 109/57
--- NOTE | 2021-08-05 | NUR ---
PT ASLEEP.VISIBLE CHEST RISE AND FALL NOTED.VSS.NO DISTRESS NOTED. ALL PRECAUTIONS IN PLACE. WILL CONTINUE TO MONITOR.
[2021-08-05] MEDS: HYDRAGUARD CREAM TP SCH ×2 (01:00→12:30)
[2021-08-05] MEDS: NYSTATIN POW 100 MU/GM 15 GM BTL TP SCH ×2 (01:00→12:30)
[2021-08-05] MEDS: DEXT 5% / NACL 0.45% 1,000 ML IV SCH ×2 (03:05→16:33)
--- NOTE | 2021-08-05 03:31 | NUR ---
ROUNDS MADE.PT ASLEEP.VISIBLE CHEST RISE AND FALL NOTED.VSS.NO DISTRESS NOTED. ALL PRECAUTIONS IN PLACE. WILL CONTINUE TO MONITOR.
[2021-08-05 07:05] LABS: BASOPHILS # (AUTO) 0.1 K/uL (0.00-0.22); BASOPHILS % (AUTO) 0.7 % (0.0-2.0); EOSINOPHILS # (AUTO) 0.7 K/uL (0-0.4); HEMATOCRIT 29.4 % (36-48); HEMOGLOBIN 9.5 g/dL (12.0-16.0); LYMPHOCYTES % (AUTO) 22.4 % (20.5-51.1); MEAN CORPUSCULAR HEMOGLOBIN 27 pg (27-31); MEAN CORPUSCULAR HGB CONC 32 g/dL (33-37); MEAN CORPUSCULAR VOLUME 82.9 fL (80-94); MONOCYTES # (AUTO) 0.6 K/uL (0.8-1.0); MONOCYTES % (AUTO) 7.2 % (1.7-9.3); NEUTROPHILS # (AUTO) 5.5 K/uL (1.8-7.7); NEUTROPHILS % (AUTO) 61.7 % (42.2-75.2); PLATELET COUNT (AUTO) 727 K/uL (140-450); RED BLOOD CELL COUNT(AUTO) 3.55 MIL/uL (4.20-5.40); WHITE BLOOD COUNT (AUTO) 8.9 K/uL (4.8-10.8)
[2021-08-05 07:06] LABS: MAGNESIUM 1.3 mg/dL (1.8-2.4); PHOSPHORUS 2.8 mg/dL (2.5-4.9)
[2021-08-05 07:12] LABS: ANION GAP 8.3 (8-16); CARBON DIOXIDE 31.9 mmol/L (21-32); CHLORIDE 110 mmol/L (98-107); CREATININE 0.8 mg/dL (0.6-1.3); GLUCOSE 92 mg/dL (74-106); POTASSIUM 3.2 mmol/L (3.5-5.1); SODIUM SERUM 147 mmol/L (136-145); UREA NITROGEN, BLOOD 11 mg/dL (7-18)
--- NOTE | 2021-08-05 07:30 | NUR ---
ENDORSED TO AM SHIFT NURSE FOR CONTINUITY OF CARE. PT IS STABLE.
--- NOTE | 2021-08-05 07:30 | NUR ---
RECEIVED BEDSIDE REPORT FROM SUSTAINABILITY PROJECT MANAGER RN FOR CONTINUITY OF CARE. AWAKE IN BED WITH HOB ELEVATED, AOX3 WITH EPISODES OF CONFUSION. ABLE TO MAKE NEEDS KNOWN. NO C/O PAIN, ON 2L NC, NO SIGNS OF DISTRESS. WITH IV LFA 24G RUNNING D5 1/2 NS AT 80CC/HR. ALL SAFETY MEASURES IN PLACE.CALL LIGHT WITHIN REACH. WILL CONTINUE TO MONITOR
[2021-08-05] MEDS: BLOOD GLUCOSE MONITORING 1 DEV DEV FS SCH ×4 (07:36→20:55)
[2021-08-05 08:00] VITALS: BP 109/57
[2021-08-05] MEDS: ALBUTEROL SULFATE/IPRATROPIU 3 ML SOL IH SCH ×3 (08:57→19:45)
[2021-08-05] MEDS: amLODIPine 5 MG TAB PO SCH (09:00)
[2021-08-05] MEDS ORDERED: KCL 20 MEQ/WATER INJ PREMIX 200 ML IV ONE (09:00)
[2021-08-05] MEDS: CINACALCET 30 MG TAB PO SCH ×2 (09:00→16:33)
[2021-08-05] MEDS: lisinopriL 10 MG TAB PO SCH (09:00)
[2021-08-05] MEDS: SPIRONOLACTONE 50 MG TAB PO SCH (09:00)
[2021-08-05] MEDS: MAGNESIUM OXIDE 400 MG TAB PO SCH (09:00)
[2021-08-05] MEDS: POTASSIUM CHLORIDE 20% 40 MEQ/15 ML UDC GT SCH (09:00)
[2021-08-05] MEDS: FERROUS SULFATE 325 MG TABEC PO SCH ×2 (09:00→20:27)
--- NOTE | 2021-08-05 09:00 | NUR ---
BEDSIDE SWALLOW EVAL DONE, PTM UNABLE TO SWALLOW THICK LIQUIDS, APPLE SAUCE, AND PUDDING, WILL NOTIFY PO MEDS HELD
[2021-08-05] MEDS: MEROPENEM 1,000 MG in NACL 0.9% 100 ML IV SCH ×2 (09:09→20:24)
[2021-08-05] MEDS: PANTOPRAZOLE 40 MG INJ VIAL IVP SCH ×2 (09:09→20:27)
[2021-08-05] MEDS: FUROSEMIDE 20 MG/2 ML VIAL IVP SCH ×2 (09:09→20:27)
[2021-08-05] MEDS: DORZOLAMIDE 2% OP 10 ML BTL OP SCH (09:09)
--- NOTE | 2021-08-05 09:30 | NUR ---
SEEN AND EXAMINED BY DR ROSSI, AWARE THAT PT IS STILL NPO. ORDERED REPEAT SWALLOW EVAL
--- NOTE | 2021-08-05 11:00 | NUR ---
JEAN-PIERRE CARE DONE, TURNED AND REPOSITIONED
[2021-08-05 12:00] VITALS: BP 108/50
--- NOTE | 2021-08-05 13:00 | NUR ---
PT RESTING IN BED AT THIS TIME, NO APPARENT DISTRESS
--- NOTE | 2021-08-05 15:05 | NUR ---
SEEN BY , RECOMMENDED FULL LIQUID DIET, WILL NOTIFY
[2021-08-05 16:00] VITALS: BP 96/54
--- NOTE | 2021-08-05 19:15 | NUR ---
RECEIVED BEDSIDE ENDORSEMENT FROM AM NURSE. PATIENT AWAKE ALERT NO ACUTE DISTRESS NOTED. RESPIRATION EVEN UNLABORED. IVF D50.45% NS INFUSING AT 80 ML/HR ON THE RFA. DENIES PAIN. SAFETY MEASURES ARE IN PLACE. CALL LIGHT WITHIN REACH. WILL CONTINUE TO MONITOR.
--- NOTE | 2021-08-05 20:24 | NUR ---
ADMINISTERED ALL 2100 SCHEDULED MEDS ORDERED. NEEDS ATTENDED TO.
[2021-08-05] MEDS: SENNA 8.6 MG TAB PO SCH (20:29)
[2021-08-05] MEDS: LATANOPROST 0.005% OP 2.5 ML BTL OP SCH (21:00)
[2021-08-05] MEDS: FLUCONAZOLE 100 MG/NS PREMIX 50 ML IV SCH (23:30)
[2021-08-06] VITALS: BP 107/57
--- NOTE | 2021-08-06 01:00 | NUR ---
PATIENT IS SLEEPING. NO S/S OF RESPIRATORY DISTRESS. CALL LIGHT WITHIN REACH.
[2021-08-06] MEDS: HYDRAGUARD CREAM TP SCH ×2 (01:17→13:25)
[2021-08-06] MEDS: NYSTATIN POW 100 MU/GM 15 GM BTL TP SCH ×2 (01:21→13:28)
[2021-08-06] MEDS: DEXT 5% / NACL 0.45% 1,000 ML IV SCH ×2 (04:05→17:01)
--- NOTE | 2021-08-06 06:45 | NUR ---
BLOOD SUGAR CHECKED WAS 114, NO COVERAGE GIVEN.
[2021-08-06 07:11] LABS: BASOPHILS # (AUTO) 0.1 K/uL (0.00-0.22); BASOPHILS % (AUTO) 0.8 % (0.0-2.0); CARBON DIOXIDE 29.1 mmol/L (21-32); CHLORIDE 107 mmol/L (98-107); CREATININE 0.7 mg/dL (0.6-1.3); EOSINOPHILS # (AUTO) 0.7 K/uL (0-0.4); EOSINOPHILS % (AUTO) 8.6 % (0.0-4.0); GLUCOSE 108 mg/dL (74-106); HEMATOCRIT 26.9 % (36-48); HEMOGLOBIN 8.8 g/dL (12.0-16.0); LYMPHOCYTES # (AUTO) 2.3 K/uL (2.5-16.5); LYMPHOCYTES % (AUTO) 27.2 % (20.5-51.1); MEAN CORPUSCULAR HEMOGLOBIN 27 pg (27-31); MEAN CORPUSCULAR HGB CONC 33 g/dL (33-37); MEAN CORPUSCULAR VOLUME 82.1 fL (80-94); MONOCYTES # (AUTO) 0.6 K/uL (0.8-1.0); MONOCYTES % (AUTO) 7.4 % (1.7-9.3); NEUTROPHILS # (AUTO) 4.8 K/uL (1.8-7.7); PLATELET COUNT (AUTO) 691 K/uL (140-450); POTASSIUM 3.1 mmol/L (3.5-5.1); RED BLOOD CELL COUNT(AUTO) 3.27 MIL/uL (4.20-5.40); RED CELL DISTRIBUTION WIDTH 21.7 % (11.6-13.7); SODIUM SERUM 145 mmol/L (136-145); UREA NITROGEN, BLOOD 10 mg/dL (7-18); WHITE BLOOD COUNT (AUTO) 8.6 K/uL (4.8-10.8)
--- NOTE | 2021-08-06 07:11 | NUR ---
BEDSIDE ENDORSEMENT GIVEN TO AM NURSE FOR CONTINUITY OF CARE. PATIENT SLEEPING IN BED. CHEST RISE AND FALL.
[2021-08-06 07:13] LABS: MAGNESIUM 1.3 mg/dL (1.8-2.4); PHOSPHORUS 3.1 mg/dL (2.5-4.9)
--- NOTE | 2021-08-06 07:33 | NUR ---
PATIENT REPORT RECEIVED FROM GROUP PRACTICE PEDIATRICIAN NURSE. PATENT RESTING IN BED NO S/SX OF DISTRESS AT THIS TIME, CALL LIGHT WITHIN REACH, BED IN LOWEST POSITION ALL BELONGINGS WITHIN REACH , NON SLIP SOCKS ON.
[2021-08-06] MEDS: ALBUTEROL SULFATE/IPRATROPIU 3 ML SOL IH SCH ×3 (07:45→19:53)
[2021-08-06 08:00] VITALS: BP 142/69
--- NOTE | 2021-08-06 08:50 | NUR ---
PATIENT LEFT FOR RADIOLOGY , PATIENT IN STABLE CONDITION
[2021-08-06] MEDS: MEROPENEM 1,000 MG in NACL 0.9% 100 ML IV SCH (09:00)
[2021-08-06] MEDS: FUROSEMIDE 20 MG/2 ML VIAL IVP SCH ×2 (09:36→21:06)
[2021-08-06] MEDS: POTASSIUM CHLORIDE 20% 40 MEQ/15 ML UDC GT SCH (09:36)
[2021-08-06] MEDS: amLODIPine 5 MG TAB PO SCH (09:37)
[2021-08-06] MEDS: MAGNESIUM OXIDE 400 MG TAB PO SCH (09:37)
[2021-08-06] MEDS: CINACALCET 30 MG TAB PO SCH ×2 (09:39→17:00)
[2021-08-06] MEDS: lisinopriL 10 MG TAB PO SCH (09:39)
[2021-08-06] MEDS: PANTOPRAZOLE 40 MG INJ VIAL IVP SCH ×2 (09:41→21:06)
[2021-08-06] MEDS: FERROUS SULFATE 325 MG TABEC PO SCH ×2 (09:41→21:06)
[2021-08-06] MEDS: SPIRONOLACTONE 50 MG TAB PO SCH (09:41)
[2021-08-06] MEDS: DORZOLAMIDE 2% OP 10 ML BTL OP SCH (09:42)
[2021-08-06] MEDS: BLOOD GLUCOSE MONITORING 1 DEV DEV FS SCH ×4 (10:06→21:24)
--- NOTE | 2021-08-06 11:51 | NUR ---
08/06/21 RD F/U COMPLETED PLEASE REFER TO NUTRITION ASSESSMENT UNDER CARE ACTIVITY FOR ESTIMATED NUTRITIONAL NEEDS. 1.CONTINUE FULL LIQUID DIET TOLERATED 2.PENDING SWALLOW EVAL 3. CONSIDER GLUCERNA STRAWBERRY TID -PROVIDES 660 KCALS AND 30GM PRO 4.PROVIDE MEAL ASSISTANCE AND ENCOURAGE INCREASED PO INTAKE 5. RD TO FOLLOW-UP 2-3 DAYS, HIGH RISK REVIEWED BY TATY PENG RD
--- NOTE | 2021-08-06 12:11 | NUR ---
BG 106, NO ACTION AT THIS TIME . PT ON ROOM AIR 100%
[2021-08-06] MEDS: ONDANSETRON 4 MG/2 ML VIAL IM/IVP PRN (13:50)
--- NOTE | 2021-08-06 13:50 | NUR ---
PATIENT HAD 2 EPISODES OF EMESIS , NOT TOLERATING DIET MD AWARE, PRN MEDICATION GIVEN PER MD ORDDERS ALL SAFTEY MEASURES ARE IN PLACE.
[2021-08-06 16:00] VITALS: BP 85/65
--- NOTE | 2021-08-06 16:30 | NUR ---
PATIENTS BP 82 /48 , BEST OUT OF 4 MD AWARE. NEW ORDERS RECEIVED AND CARRIED THROUGH. PATIENT PLACED ON 2 L NC
--- NOTE | 2021-08-06 16:45 | NUR ---
PATIENT DESATURATED 86% , O2 RAISED TO 5 L , RT AT BEDSIDE GETTING ABG ALL SAFETY MEASURES ARE IN PLACE.
[2021-08-06] MEDS ORDERED: NACL 0.9% 1,000 ML IV SCH (16:55)
--- NOTE | 2021-08-06 17:07 | NUR ---
BG 119, BLOOD PRESSURE 82/45 AT THIS TIME , CHEST ACQUISITION ANALYST AT BEDSIDE
--- NOTE | 2021-08-06 17:08 | NUR ---
ON 3 L NC 99%
--- NOTE | 2021-08-06 17:19 | NUR ---
BP 98/54% Addendum: 08/06/21 at 1720 by Margareth Villalobos RN RN PLACED ON 2-L NC 99%
--- NOTE | 2021-08-06 18:03 | NUR ---
BP 97/53 NO S/SX OF DISTRESS
--- NOTE | 2021-08-06 19:36 | NUR ---
PATIENT ENDORSED TO SUPERVISOR RESIDENTIAL NURSE. PATIENT IN STABLE CONDITION , ALL SAFETY MEASURES ARE IN PLACE.
--- NOTE | 2021-08-06 19:37 | NUR ---
RECEIVED REPORT FROM AM NURSE. PATIENT IS SLEEPING. NO SOB NOTED. RESPIRATION EVEN UNLABORED. IVF NS INFUSING AT 80 MLS. ALL SAFETY PRECAUTIONS ARE IN PLACE. CALL LIGHT WITHIN REACH.
[2021-08-06 20:00] VITALS: BP 103/45
[2021-08-06] MEDS: SENNA 8.6 MG TAB PO SCH (21:06)
--- NOTE | 2021-08-06 21:06 | NUR ---
ADMINISTERED ALL 2100 SCHEDULED MEDS PER MD ORDERED, TOLERATED WELL. NO SOB NOTED. SAFETY MEASURES IN PLACE. CALL LIGHT ON EASY REACH.
[2021-08-06] MEDS: LATANOPROST 0.005% OP 2.5 ML BTL OP SCH (21:07)
[2021-08-06] MEDS: FLUCONAZOLE 100 MG/NS PREMIX 50 ML IV SCH (23:44)
[2021-08-07] VITALS: BP 107/40
--- NOTE | 2021-08-07 00:10 | NUR ---
PATIENT IS SLEEPING. NO S/S OF RESPIRATORY DISTRESS. CHEST RISE AND FALL. CALL LIGHT WITHIN REACH.
[2021-08-07] MEDS: HYDRAGUARD CREAM TP SCH ×2 (01:00→13:00)
[2021-08-07 04:00] VITALS: BP 102/51
[2021-08-07] MEDS: DEXT 5% / NACL 0.45% 1,000 ML IV SCH ×2 (06:25→17:43)
[2021-08-07] MEDS: BLOOD GLUCOSE MONITORING 1 DEV DEV FS SCH ×4 (06:47→21:00)
[2021-08-07] MEDS: ALBUTEROL SULFATE/IPRATROPIU 3 ML SOL IH SCH ×3 (07:22→19:24)
--- NOTE | 2021-08-07 07:28 | NUR ---
ENDORSED PT TO AM NURSE FOR CONTINUITY OF CARE. PT IS STABLE.
--- NOTE | 2021-08-07 07:30 | NUR ---
RECEIVED PT AAOX2, WITH PERIODS OF CONFUSION. NO SOB NOTED. NO C/O PAIN AT THIS TIME. IV TO RT HAND PATENT AND INTACT, CHEST DIMINISHED AIR ENTRY TO THE BASES. ABDOMEN SOFT, BOWEL SOUNDS PRESENT. INSTRUCTED PT TO CALL FOR ASSISTANCE, CALL LIGHT WITHIN REACH, PT VERBALIZED PARTIAL UNDERSTANDING.
[2021-08-07 07:34] LABS: BASOPHILS # (AUTO) 0.1 K/uL (0.00-0.22); BASOPHILS % (AUTO) 0.7 % (0.0-2.0); EOSINOPHILS # (AUTO) 0.6 K/uL (0-0.4); HEMATOCRIT 26.9 % (36-48); HEMOGLOBIN 8.7 g/dL (12.0-16.0); LYMPHOCYTES # (AUTO) 2.1 K/uL (2.5-16.5); LYMPHOCYTES % (AUTO) 26.4 % (20.5-51.1); MEAN CORPUSCULAR HEMOGLOBIN 27 pg (27-31); MEAN CORPUSCULAR HGB CONC 33 g/dL (33-37); MEAN CORPUSCULAR VOLUME 82.3 fL (80-94); MONOCYTES # (AUTO) 0.7 K/uL (0.8-1.0); MONOCYTES % (AUTO) 8.4 % (1.7-9.3); NEUTROPHILS # (AUTO) 4.5 K/uL (1.8-7.7); NEUTROPHILS % (AUTO) 56.5 % (42.2-75.2); PLATELET COUNT (AUTO) 669 K/uL (140-450); RED BLOOD CELL COUNT(AUTO) 3.26 MIL/uL (4.20-5.40); RED CELL DISTRIBUTION WIDTH 21.2 % (11.6-13.7); WHITE BLOOD COUNT (AUTO) 7.9 K/uL (4.8-10.8)
[2021-08-07 07:40] LABS: ANION GAP 8.7 (8-16); CARBON DIOXIDE 28.9 mmol/L (21-32); CHLORIDE 108 mmol/L (98-107); CREATININE 0.7 mg/dL (0.6-1.3); GLUCOSE 91 mg/dL (74-106); SODIUM SERUM 143 mmol/L (136-145); UREA NITROGEN, BLOOD 10 mg/dL (7-18)
[2021-08-07 07:46] LABS: MAGNESIUM 1.3 mg/dL (1.8-2.4); PHOSPHORUS 3.1 mg/dL (2.5-4.9)
[2021-08-07 08:00] VITALS: BP 95/46
[2021-08-07] MEDS: lisinopriL 10 MG TAB PO SCH (09:00)
[2021-08-07] MEDS: SPIRONOLACTONE 50 MG TAB PO SCH (09:00)
[2021-08-07] MEDS: FUROSEMIDE 20 MG/2 ML VIAL IVP SCH (09:00)
[2021-08-07] MEDS: amLODIPine 5 MG TAB PO SCH (09:00)
[2021-08-07] MEDS: CINACALCET 30 MG TAB PO SCH ×2 (09:45→17:32)
[2021-08-07] MEDS: FERROUS SULFATE 325 MG TABEC PO SCH ×2 (09:45→21:53)
[2021-08-07] MEDS: PANTOPRAZOLE 40 MG INJ VIAL IVP SCH ×2 (09:45→21:53)
[2021-08-07] MEDS: POTASSIUM CHLORIDE 20% 40 MEQ/15 ML UDC GT SCH (09:45)
[2021-08-07] MEDS: MAGNESIUM OXIDE 400 MG TAB PO SCH (09:46)
[2021-08-07] MEDS: DORZOLAMIDE 2% OP 10 ML BTL OP SCH (09:50)
[2021-08-07 10:01] LABS: POTASSIUM 2.6 mmol/L (3.5-5.1)
[2021-08-07] MEDS: ONDANSETRON 4 MG/2 ML VIAL IM/IVP PRN (10:35)
[2021-08-07] MEDS ORDERED: METO25TE2 PO (11:03)
[2021-08-07] MEDS ORDERED: POTASSIUM CHLORIDE 10 MEQ TABER PO ONE (11:05)
[2021-08-07 12:00] VITALS: BP 104/49
[2021-08-07] MEDS ORDERED: KCL 20 MEQ/WATER INJ PREMIX 200 ML IV SCH ×2 (12:00→17:00)
--- NOTE | 2021-08-07 12:09 | NUR ---
Faxed information to [facility] in [place], . spoke to Sanjeev. Waiting for call back.
--- NOTE | 2021-08-07 15:00 | NUR ---
PT RESTING. NO SOB NOTED. NO SIGNS OF PAIN AT THIS TIME. ENDORSED TO DARIEL FOR CONTINUITY OF CARE.
--- NOTE | 2021-08-07 15:01 | NUR ---
RECEIVED REPORT FROM GARRICK SOLOMON FOR CONTINUITY OF CARE. PT IS STABLE. SLEEPING WITH NO DISTRESS NOTED. PLAN OF CARE DISCUSSED.
[2021-08-07 16:00] VITALS: BP 92/50
--- NOTE | 2021-08-07 16:30 | NUR ---
CHECK TOTALER AT BEDSIDE DRAWING REPEAT BMP. WILL WAIT FOR RESULTS.
[2021-08-07 16:53] LABS: ANION GAP 10.7 (8-16); CARBON DIOXIDE 25.6 mmol/L (21-32); CHLORIDE 106 mmol/L (98-107); CREATININE 0.8 mg/dL (0.6-1.3); GLUCOSE 117 mg/dL (74-106); POTASSIUM 3.3 mmol/L (3.5-5.1); SODIUM SERUM 139 mmol/L (136-145); UREA NITROGEN, BLOOD 12 mg/dL (7-18)
--- NOTE | 2021-08-07 17:42 | NUR ---
KRIDER 40 MEQ IV GIVEN FOR POTASSIUM LEVEL OF 3.3. PT IS STABLE. WILL CONTINUE TO MONITOR.
--- NOTE | 2021-08-07 17:54 | NUR ---
CALLED RACH RN CLOTH DYE RANGE OPERATOR AND ASKED IF THERE WAS AN UPDATE ON THE DISCHARGE/ AVAILABLE BED AT THE [facility]. HE STATED THERE WAS NO UPDATE AND BELIEVED THE PT WILL BE STAYING THE NIGHT.
--- NOTE | 2021-08-07 19:05 | NUR ---
ENDORSED PT TO MEDICAL STAFF SPECIALIST NURSE FOR CONTINUITY OF CARE. PT IS STABLE. PLAN OF CARE DISCUSSED. KRIDER STILL INFUSING.
--- NOTE | 2021-08-07 19:15 | NUR ---
RECEIVED REPORT FROM AM NURSE. PATIENT IS RESTING IN BED. AWAKE, ALERT WITH HEAD OF BED ELEVATED TO 45 DEGREES. O2 AT 3L NC. IVF RUNNING PER MD ORDERED. NO S/S OF RESPIRATORY DISTRESS. RESPIRATION EVEN UNLABORED. SAFETY PRECAUTIONS IN PLACE. NO COMPLAINTS OF PAIN. CALL LIGHT WITHIN REACH.
[2021-08-07 20:00] VITALS: BP_SYST 100; BP_SYST 134; BP_DIAS 65; BP_DIAS 77
--- NOTE | 2021-08-07 21:30 | NUR ---
STARTED A NEW PERIPHERAL IV 24G ON THE LEFT HAND WITH GOOD BACK FLOW OF BLOOD.
--- NOTE | 2021-08-07 21:53 | NUR ---
ADMINISTERED ALL SCHEDULED MEDS AT 2100 TOLERATED WELL. NO VOMITING NOTED AT THIS TIME.
[2021-08-07] MEDS: SENNA 8.6 MG TAB PO SCH (21:54)
[2021-08-07] MEDS: LATANOPROST 0.005% OP 2.5 ML BTL OP SCH (21:55)
[2021-08-08] VITALS: BP 103/64
[2021-08-08] MEDS: HYDRAGUARD CREAM TP SCH ×2 (01:00→13:24)
[2021-08-08 04:00] VITALS: BP 103/56
[2021-08-08] MEDS: DEXT 5% / NACL 0.45% 1,000 ML IV SCH ×2 (06:05→18:35)
[2021-08-08 07:09] LABS: ANION GAP 11.6 (8-16); CARBON DIOXIDE 24.2 mmol/L (21-32); CHLORIDE 106 mmol/L (98-107); CREATININE 0.7 mg/dL (0.6-1.3); GLUCOSE 88 mg/dL (74-106); POTASSIUM 3.8 mmol/L (3.5-5.1); SODIUM SERUM 138 mmol/L (136-145); UREA NITROGEN, BLOOD 9 mg/dL (7-18)
[2021-08-08 07:11] LABS: BASOPHILS # (AUTO) 0.1 K/uL (0.00-0.22); BASOPHILS % (AUTO) 1.1 % (0.0-2.0); EOSINOPHILS # (AUTO) 0.7 K/uL (0-0.4); EOSINOPHILS % (AUTO) 8.4 % (0.0-4.0); HEMATOCRIT 27.9 % (36-48); HEMOGLOBIN 9.1 g/dL (12.0-16.0); MEAN CORPUSCULAR HEMOGLOBIN 27 pg (27-31); MEAN CORPUSCULAR HGB CONC 33 g/dL (33-37); MEAN CORPUSCULAR VOLUME 82.7 fL (80-94); MONOCYTES # (AUTO) 0.6 K/uL (0.8-1.0); MONOCYTES % (AUTO) 7.5 % (1.7-9.3); NEUTROPHILS # (AUTO) 5.2 K/uL (1.8-7.7); PLATELET COUNT (AUTO) 687 K/uL (140-450); RED BLOOD CELL COUNT(AUTO) 3.38 MIL/uL (4.20-5.40); RED CELL DISTRIBUTION WIDTH 21.6 % (11.6-13.7); WHITE BLOOD COUNT (AUTO) 8.6 K/uL (4.8-10.8)
[2021-08-08 07:12] LABS: MAGNESIUM 1.2 mg/dL (1.8-2.4); PHOSPHORUS 2.5 mg/dL (2.5-4.9)
[2021-08-08] MEDS: BLOOD GLUCOSE MONITORING 1 DEV DEV FS SCH ×4 (07:29→21:56)
[2021-08-08] MEDS: ALBUTEROL SULFATE/IPRATROPIU 3 ML SOL IH SCH ×3 (07:48→20:05)
--- NOTE | 2021-08-08 07:50 | NUR ---
ENDORSED PATIENT TO AM NURSE FOR CONTINUITY OF CARE. PT IS STABLE. NO SOB NOTED.
--- NOTE | 2021-08-08 07:50 | NUR ---
RECEIVED REPORT FROM FIXTURE DESIGNER FOR CONTINUITY OF CARE. BREATHING SYMMETRICAL. NO S/S OF DISTRESS. CALL LIGHT IN REACH. ALL SAFETY MEASURES IN PLACE. IV RUNNING PER MD ORDER. 3L NC
[2021-08-08 08:00] VITALS: BP 101/52
[2021-08-08] MEDS: ONDANSETRON 4 MG/2 ML VIAL IM/IVP PRN ×2 (08:50→21:56)
[2021-08-08] MEDS: PANTOPRAZOLE 40 MG INJ VIAL IVP SCH ×2 (08:52→20:55)
[2021-08-08] MEDS: lisinopriL 10 MG TAB PO SCH (08:52)
[2021-08-08] MEDS: CINACALCET 30 MG TAB PO SCH ×2 (08:53→17:35)
[2021-08-08] MEDS: FERROUS SULFATE 325 MG TABEC PO SCH ×2 (08:57→20:56)
[2021-08-08] MEDS: amLODIPine 5 MG TAB PO SCH ×3 (08:57→09:46)
[2021-08-08] MEDS: SPIRONOLACTONE 50 MG TAB PO SCH (08:57)
[2021-08-08] MEDS: POTASSIUM CHLORIDE 20% 40 MEQ/15 ML UDC GT SCH (08:58)
[2021-08-08] MEDS: MAGNESIUM OXIDE 400 MG TAB PO SCH (08:58)
--- NOTE | 2021-08-08 09:23 | NUR ---
PT STATED FEELING NAUSEOUS. MEDICATED PER MD ORDER. PT VERBALIZED UNDERSTANDING OF EDUCATION. BREATHING SYMMETRICAL. NO S/S OF DISTRESS. CALL LIGHT IN REACH. ALL SAFETY MEASURES IN PLACE.
[2021-08-08] MEDS: DORZOLAMIDE 2% OP 10 ML BTL OP SCH (09:45)
--- NOTE | 2021-08-08 10:23 | NUR ---
PT CLEANED AND CHANGED. BREATHING SYMMETRICAL. NO S/S OF DISTRESS. CALL LIGHT IN REACH. ALL SAFETY MEASURES IN PLACE. IV RUNNING PER MD ORDER. 3L NC
[2021-08-08 12:00] VITALS: BP 101/52
--- NOTE | 2021-08-08 13:32 | NUR ---
PT RESTING IN BED, EYES CLOSED. BREATHING SYMMETRICAL. NO S/S OF DISTRESS. CALL LIGHT IN REACH. ALL SAFETY MEASURES IN PLACE. IV RUNNING PER MD ORDER. 3L NC
--- NOTE | 2021-08-08 17:51 | NUR ---
PT RESTING IN BED. BREATHING SYMMETRICAL. NO S/S OF DISTRESS. CALL LIGHT IN REACH. ALL SAFETY MEASURES IN PLACE. IV RUNNING PER MD ORDER. 3L NC
--- NOTE | 2021-08-08 19:46 | NUR ---
RECEIVED REPORT FROM AM NURSE. PATIENT IS RESTING IN BED WATCHING TV WITH O2 AT 3L NC TOLERATING WELL. NO ACUTE DISTRESS NOTED. DENIES PAIN. SKIN WARM AND DRY TO THE TOUCH. IVF D51/2 NS INFUSING PER MD ORDERED. SAFETY MEASURES IN PLACE. CALL LIGHT WITHIN REACH.
--- NOTE | 2021-08-08 19:46 | NUR ---
ENDORSED PT TO PROCESS TRAINER NURSE. ALL SAFETY MEASURES IN PLACE
--- NOTE | 2021-08-08 20:55 | NUR ---
ADMINISTERED SCHEDULED NEDS ORDERED. TOLERATED WELL. CALL LIGHT WITHIN REACH
[2021-08-08] MEDS: SENNA 8.6 MG TAB PO SCH (20:56)
[2021-08-08] MEDS: LATANOPROST 0.005% OP 2.5 ML BTL OP SCH (20:57)
--- NOTE | 2021-08-08 21:57 | NUR ---
PATIENT HAD EPISODE OF VOMITING, ZOFRAN PRN GIVEN ORDERED.
--- NOTE | 2021-08-08 21:58 | NUR ---
INSERTED A PERIPHERAL IV ON THE LEFT FOREARM WITH GOOD FLOW OF BLOOD. Addendum: 08/09/21 at 0217 by Maia Gregory RN RN GOOD BACK FLOW OF BLOOD
[2021-08-09] VITALS: BP 102/48
[2021-08-09] MEDS: HYDRAGUARD CREAM TP SCH ×2 (01:00→13:20)
--- NOTE | 2021-08-09 03:20 | NUR ---
PATIENT IS SLEEPING. NO SINGS OF DISTRESS NOTED. CALL LIGHT WITHIN REACH. Addendum: 08/09/21 at 0524 by Maia Gregory RN RN SIGNS INSTEAD OF SINGS
[2021-08-09] MEDS: ONDANSETRON 4 MG/2 ML VIAL IM/IVP PRN ×3 (05:25→23:37)
--- NOTE | 2021-08-09 05:25 | NUR ---
PATIENT IS NAUSEOUS, ZOFRAN PRN GIVEN ORDERED.
[2021-08-09] MEDS: BLOOD GLUCOSE MONITORING 1 DEV DEV FS SCH ×4 (06:39→21:31)
--- NOTE | 2021-08-09 07:20 | NUR ---
ENDORSED TO AM NURSE FOR CONTINUITY OF CARE. PT IS AWAKE IN NO DISTRESS.
--- NOTE | 2021-08-09 07:21 | NUR ---
RECEIVED REPORT FROM PLATING AND POINT ASSEMBLY SUPERVISOR NURSE FOR CONTINUITY OF CARE. PT IS IN BED RESTING AT THIS TIME. RESPIRATIONS ARE EVEN AND UNLABORED. NO SIGNS OF DISTRESS NOTED. WILL CONTINUE TO MONITOR.
[2021-08-09] MEDS: ALBUTEROL SULFATE/IPRATROPIU 3 ML SOL IH SCH ×3 (07:30→19:14)
[2021-08-09] MEDS: DEXT 5% / NACL 0.45% 1,000 ML IV SCH ×2 (07:49→19:35)
[2021-08-09 08:00] VITALS: BP 107/60
[2021-08-09] MEDS: PANTOPRAZOLE 40 MG INJ VIAL IVP SCH ×2 (08:40→21:14)
[2021-08-09] MEDS: FERROUS SULFATE 325 MG TABEC PO SCH ×2 (08:41→21:14)
[2021-08-09] MEDS: POTASSIUM CHLORIDE 20% 40 MEQ/15 ML UDC GT SCH (08:41)
[2021-08-09] MEDS: DORZOLAMIDE 2% OP 10 ML BTL OP SCH (08:52)
[2021-08-09] MEDS: CINACALCET 30 MG TAB PO SCH ×2 (08:52→17:04)
[2021-08-09] MEDS: SPIRONOLACTONE 50 MG TAB PO SCH (08:53)
[2021-08-09] MEDS: MAGNESIUM OXIDE 400 MG TAB PO SCH (08:57)
[2021-08-09] MEDS: lisinopriL 10 MG TAB PO SCH (09:00)
[2021-08-09] MEDS: amLODIPine 5 MG TAB PO SCH (09:00)
--- NOTE | 2021-08-09 09:12 | NUR ---
ADMINISTERED SCHEDULED MEDICATIONS. HELD BP MEDICATION DUE TO LOW BP. WILL CONTINUE TO MONITOR.
--- NOTE | 2021-08-09 11:32 | NUR ---
BLOOD GLUCOSE WAS 98. NO INSULIN COVERAGE NEEDED PER MD ORDER. WILL CONTINUE TO MONITOR.
--- NOTE | 2021-08-09 14:39 | NUR ---
DID ROUNDS ON PT. FAMILY AT BEDSIDE. PT IS SLEEPING AT THIS TIME. RESPIRATIONS ARE EVEN AND UNLABORED. NO SIGNS OF DISTRESS NOTED. NO COMPLAINTS OF PAIN OR DISCOMFORT. ANSWERED ALL OF FAMILY'S QUESTIONS. CALL LIGHT WITHIN REACH. BED IN LOWEST POSITION. ALL SAFETY MEASURES IN PLACE. WILL CONTINUE TO MONITOR.
[2021-08-09 16:00] VITALS: BP 103/60
--- NOTE | 2021-08-09 17:37 | NUR ---
DID ROUNDS ON PT. NOTICED IV SITE WAS A BIT SWOLLEN. PT FAMILY AT BEDSIDE. FAMILY STATES THEY NOTICED PT LAYS ON THAT ARM QUITE OFTEN. ELEVATED ARM. WILL CONTINUE TO MONITOR.
--- NOTE | 2021-08-09 19:10 | NUR ---
PT PULLED OUT IV. WILL ENDORSE TO TRANSPORTATION CONSULTANT NURSE.
--- NOTE | 2021-08-09 19:13 | NUR ---
ENDORSED PT TO BLACK LEATHER BUFFER NURSE FOR CONTINUITY OF CARE. PT IS STABLE AT THIS TIME.
--- NOTE | 2021-08-09 19:14 | NUR ---
RECEIVED REPORT FROM AM NURSE. PATIENT AWAKE RESTING IN SEMI FOWLERS POSITION. NO COMPLAINTS OF PAIN AT THIS TIME. NO IVF ONGOING, INFILTRATED. O2 AT 3L NC SATING AT 96%. SAFETY MEASURES IN PLACE. CALL LIGHT WITHIN REACH.
[2021-08-09] MEDS: SENNA 8.6 MG TAB PO SCH (21:14)
[2021-08-09] MEDS: LATANOPROST 0.005% OP 2.5 ML BTL OP SCH (21:14)
--- NOTE | 2021-08-09 23:10 | NUR ---
INSERTED PERIPHERAL IV ON THE RIGHT HAND. RESUMED IVF NS AT 80 MLS.
--- NOTE | 2021-08-09 23:30 | NUR ---
PATIENT CLEANED, CHANGED AND REPOSITIONED.
[2021-08-10] VITALS: BP 103/52
[2021-08-10] MEDS: HYDRAGUARD CREAM TP SCH ×2 (01:00→13:29)
[2021-08-10] MEDS: ACETAMINOPHEN 325 MG TAB PO PRN ×3 (02:41→15:54)
--- NOTE | 2021-08-10 06:31 | NUR ---
PT COMPLAINED OF SEVERE PAIN ON THE LEFT LOWER LEG. NOTIFIED DR. NAVARRETE AWAITING FOR ORDERS.
[2021-08-10] MEDS: ONDANSETRON 4 MG/2 ML VIAL IM/IVP PRN ×2 (06:39→18:41)
--- NOTE | 2021-08-10 06:39 | NUR ---
PATIENT IS NAUSEOUS. ZOFRAN PRN ADMINISTERED ORDERED.
[2021-08-10] MEDS ORDERED: MORPHINE SULFATE 2 MG/ML SYR IVP PRN (07:00)
--- NOTE | 2021-08-10 07:01 | NUR ---
PATIENT WITH NEW ORDER OF MORPHINE FOR SEVERE PAIN ON THE LEFT LOWER LEG. NOT ADMINISTERED CAUSE PATIENT BP IS 103/48 P-88.
[2021-08-10] MEDS: BLOOD GLUCOSE MONITORING 1 DEV DEV FS SCH ×4 (07:02→21:11)
[2021-08-10] MEDS: ALBUTEROL SULFATE/IPRATROPIU 3 ML SOL IH SCH ×3 (07:24→20:00)
[2021-08-10 07:25] LABS: BASOPHILS # (AUTO) 0.1 K/uL (0.00-0.22); BASOPHILS % (AUTO) 0.7 % (0.0-2.0); EOSINOPHILS # (AUTO) 0.6 K/uL (0-0.4); EOSINOPHILS % (AUTO) 7.2 % (0.0-4.0); HEMATOCRIT 25.2 % (36-48); HEMOGLOBIN 8.2 g/dL (12.0-16.0); LYMPHOCYTES # (AUTO) 1.8 K/uL (2.5-16.5); LYMPHOCYTES % (AUTO) 22.6 % (20.5-51.1); MEAN CORPUSCULAR HEMOGLOBIN 27 pg (27-31); MEAN CORPUSCULAR HGB CONC 33 g/dL (33-37); MEAN CORPUSCULAR VOLUME 83.6 fL (80-94); MONOCYTES # (AUTO) 0.8 K/uL (0.8-1.0); MONOCYTES % (AUTO) 10.1 % (1.7-9.3); NEUTROPHILS # (AUTO) 4.7 K/uL (1.8-7.7); NEUTROPHILS % (AUTO) 59.4 % (42.2-75.2); PLATELET COUNT (AUTO) 669 K/uL (140-450); RED BLOOD CELL COUNT(AUTO) 3.02 MIL/uL (4.20-5.40); RED CELL DISTRIBUTION WIDTH 21.8 % (11.6-13.7); WHITE BLOOD COUNT (AUTO) 7.8 K/uL (4.8-10.8)
--- NOTE | 2021-08-10 07:29 | NUR ---
RECEIVED ENDORSEMENT FROM COMMERCIAL ENERGY RATER NURSE FOR CONTINUITY OF CARE.
[2021-08-10 07:30] LABS: ALBUMIN 1.4 g/dL (3.4-5.0); ANION GAP 12.6 (8-16); ASPARTATE AMINOTRANSFERASE 84 U/L (15-37); CHLORIDE 108 mmol/L (98-107); CREATININE 0.8 mg/dL (0.6-1.3); GLUCOSE 104 mg/dL (74-106); POTASSIUM 3.6 mmol/L (3.5-5.1); SODIUM SERUM 139 mmol/L (136-145); TOTAL BILIRUBIN 0.3 mg/dL (0.0-1.0); UREA NITROGEN, BLOOD 9 mg/dL (7-18)
--- NOTE | 2021-08-10 07:30 | NUR ---
BEDSIDE REPORT GIVEN TO AM NURSE FOR CONTINUITY OF CARE. NO DISTRESS NOTED.
--- NOTE | 2021-08-10 07:35 | NUR ---
DR. CASTILLO RESPONDED DON'T GIVE MORPHINE DUE TO LOW BLOOD PRESSURE.
[2021-08-10 08:00] VITALS: BP 97/48
[2021-08-10] MEDS: PANTOPRAZOLE 40 MG INJ VIAL IVP SCH ×2 (08:03→21:52)
[2021-08-10] MEDS: DEXT 5% / NACL 0.45% 1,000 ML IV SCH ×2 (08:05→15:47)
[2021-08-10] MEDS: SPIRONOLACTONE 50 MG TAB PO SCH (08:50)
[2021-08-10] MEDS: amLODIPine 5 MG TAB PO SCH (08:51)
[2021-08-10] MEDS: MAGNESIUM OXIDE 400 MG TAB PO SCH (08:51)
[2021-08-10] MEDS: FERROUS SULFATE 325 MG TABEC PO SCH ×2 (08:52→20:27)
[2021-08-10] MEDS: POTASSIUM CHLORIDE 20% 40 MEQ/15 ML UDC GT SCH (08:52)
[2021-08-10] MEDS: lisinopriL 10 MG TAB PO SCH (08:52)
[2021-08-10] MEDS: CINACALCET 30 MG TAB PO SCH ×2 (08:52→17:09)
--- NOTE | 2021-08-10 09:11 | NUR ---
DR. NAVARRETE AT BED SIDE ORDER XRAY OF LEFT KNEE. GIVEN ALL DUE MEDICATION.
[2021-08-10] MEDS: DORZOLAMIDE 2% OP 10 ML BTL OP SCH (11:23)
--- NOTE | 2021-08-10 11:30 | NUR ---
PT STATED THAT THE TYLENOL HELP HER PAIN SUBSIDING.
--- NOTE | 2021-08-10 11:45 | NUR ---
BLOOD SUGAR CHECKED. PT ON STABLE CONDITION. ALL SAFETY MEASURE IN PLACE.
--- NOTE | 2021-08-10 12:08 | NUR ---
(08/10/21) RD FOLLOW UP COMPLETED PLEASE REFER TO NUTRITION PROGRESS NOTE UNDER CARE ACTIVITY FOR ESTIMATED NUTRITION NEEDS. RD RECOMMENDATIONS: 1.CONTINUE FULL LIQUID DIET TOLERATED 2.PENDING SWALLOW EVAL 3. CONTINUE GLUCERNA STRAWBERRY TID -PROVIDES 660 KCALS AND 30GM PRO 4.PROVIDE MEAL ASSISTANCE AND ENCOURAGE INCREASED PO INTAKE 5. RD TO FOLLOW-UP 2-3 DAYS, HIGH RISK CARITO DUONG MS, RDN
--- NOTE | 2021-08-10 14:00 | NUR ---
PT ON STABLE CONDITION. ALL SAFETY MEASURE IN PLACE.
--- NOTE | 2021-08-10 15:45 | NUR ---
ULTRASOUND DONE ON LEFT KNEE.
--- NOTE | 2021-08-10 15:56 | NUR ---
COMPLAIN OF LEFT KNEE PAIN MEDICATED ORDER.
[2021-08-10 16:00] VITALS: BP 107/63
--- NOTE | 2021-08-10 17:30 | NUR ---
PT ON BED ASLEEP BUT EASY WAKE UP WHEN CALLED GIVEN ORAL MEDICATION TOLERATED WELL. ALL SAFETY MEASURE IN PLACE.
--- NOTE | 2021-08-10 18:42 | NUR ---
PT NOT EATING COMPLAINING OF NAUSEA RN GAVE ZOFRAN. DR. NAVARRETE CAME AND SEE RESIDENT.
--- NOTE | 2021-08-10 19:15 | NUR ---
ENDORSE TO OPERATIONS TRAINER NURSE FOR CONTINUITY OF CARE.PT ON STABLE CONDITION.
--- NOTE | 2021-08-10 19:16 | NUR ---
RECD. RESTING IN BED, AWAKE, A/OX3, OBESE. RESPIRATION EVEN AND UNLABORED. ON 02 AT 2 LITERS N/C. IV OF D5 NS INFUSING AT 80 ML/HR RIGHT HAND G24. BEDBOUND, AND INCONTINENT. ABLE TO VERBALIZED NEEDS. MEDICATIONS AND CARE FOR THE SHIFT DISCUSSED WITH PATIENT. VERBALIZED UNDERSTANDING. DENIES PAIN 0/10.
--- NOTE | 2021-08-10 20:00 | NUR ---
RT CAME AND GIVE BREATHING TREATMENT.
--- NOTE | 2021-08-10 20:02 | NUR ---
PT PRESENTS LYING IN BED WATCHING TV W/ NO SIGNS OF RESPIRATORY DISTRESS SATING 97% ON 2LPM NC. GAVE PT HER TX WHICH SHE TOLERATED WELL, HELPED HER REPOSITION IN BED. WILL CONTINUE TO MONITOR.
[2021-08-10] MEDS: LATANOPROST 0.005% OP 2.5 ML BTL OP SCH (20:26)
[2021-08-10] MEDS: SENNA 8.6 MG TAB PO SCH (20:27)
--- NOTE | 2021-08-10 21:11 | NUR ---
OFFERED SNACK FOR THE NIGHT, BUT REFUSED. ENCOURAGED TO TAKE GLUCERNA BUT STILL REFUSED.
[2021-08-10] MEDS: AMITRIPTYLINE 10 MG TAB PO SCH (22:54)
[2021-08-11] VITALS: BP 123/56
[2021-08-11] MEDS: ONDANSETRON 4 MG/2 ML VIAL IM/IVP PRN (01:05)
--- NOTE | 2021-08-11 01:05 | NUR ---
NAUSEATED, MEDICATED WITH ZOFRAN PER MD ORDER.
[2021-08-11] MEDS: HYDRAGUARD CREAM TP SCH ×2 (01:31→13:00)
--- NOTE | 2021-08-11 02:05 | NUR ---
RESTING COMFORTABLY IN BED, RESPIRATION EVEN AND UNLABORED. NO NAUSEA NOTED.
--- NOTE | 2021-08-11 03:14 | NUR ---
Patient's Plan of Care was discussed and reviewed with HOME OFFICE REPRESENTATIVE: ARNOLDO OROZCO
--- NOTE | 2021-08-11 05:00 | NUR ---
COMPLAINED OF HEADACHE BUT WHEN OFFERED TYLENOL, REFUSED.
[2021-08-11] MEDS: DEXT 5% / NACL 0.45% 1,000 ML IV SCH ×3 (06:55→21:45)
--- NOTE | 2021-08-11 07:00 | NUR ---
CONDITION REMAIN STABLE. WILL ENDORSED TO AM SHIFT NURSE FOR CONTINUITY OF CARE.
[2021-08-11] MEDS: BLOOD GLUCOSE MONITORING 1 DEV DEV FS SCH ×4 (07:16→20:42)
[2021-08-11 07:29] LABS: BASOPHILS % (AUTO) 0.5 % (0.0-2.0); EOSINOPHILS # (AUTO) 0.4 K/uL (0-0.4); EOSINOPHILS % (AUTO) 5.1 % (0.0-4.0); HEMATOCRIT 25.6 % (36-48); HEMOGLOBIN 8.4 g/dL (12.0-16.0); LYMPHOCYTES # (AUTO) 1.5 K/uL (2.5-16.5); LYMPHOCYTES % (AUTO) 16.8 % (20.5-51.1); MEAN CORPUSCULAR HEMOGLOBIN 27 pg (27-31); MEAN CORPUSCULAR HGB CONC 33 g/dL (33-37); MEAN CORPUSCULAR VOLUME 82.7 fL (80-94); MONOCYTES # (AUTO) 0.9 K/uL (0.8-1.0); NEUTROPHILS # (AUTO) 5.9 K/uL (1.8-7.7); NEUTROPHILS % (AUTO) 67.6 % (42.2-75.2); PLATELET COUNT (AUTO) 649 K/uL (140-450); RED CELL DISTRIBUTION WIDTH 21.5 % (11.6-13.7); WHITE BLOOD COUNT (AUTO) 8.7 K/uL (4.8-10.8)
[2021-08-11 07:35] LABS: ALBUMIN 1.3 g/dL (3.4-5.0); ANION GAP 12.2 (8-16); ASPARTATE AMINOTRANSFERASE 52 U/L (15-37); CARBON DIOXIDE 21.1 mmol/L (21-32); CHLORIDE 109 mmol/L (98-107); CREATININE 0.6 mg/dL (0.6-1.3); GLUCOSE 87 mg/dL (74-106); MAGNESIUM 1.3 mg/dL (1.8-2.4); PHOSPHORUS 3.2 mg/dL (2.5-4.9); POTASSIUM 3.3 mmol/L (3.5-5.1); SODIUM SERUM 139 mmol/L (136-145); TOTAL BILIRUBIN 0.4 mg/dL (0.0-1.0); UREA NITROGEN, BLOOD 6 mg/dL (7-18)
[2021-08-11 08:00] VITALS: BP 99/60
[2021-08-11] MEDS: ALBUTEROL SULFATE/IPRATROPIU 3 ML SOL IH SCH ×3 (08:04→19:50)
[2021-08-11] MEDS: POTASSIUM CHLORIDE 20% 40 MEQ/15 ML UDC GT SCH (09:34)
[2021-08-11] MEDS: DORZOLAMIDE 2% OP 10 ML BTL OP SCH (09:35)
[2021-08-11] MEDS: SPIRONOLACTONE 50 MG TAB PO SCH (09:37)
[2021-08-11] MEDS: MAGNESIUM OXIDE 400 MG TAB PO SCH (09:38)
[2021-08-11] MEDS: amLODIPine 5 MG TAB PO SCH (09:38)
[2021-08-11] MEDS: lisinopriL 10 MG TAB PO SCH (09:39)
[2021-08-11] MEDS: FERROUS SULFATE 325 MG TABEC PO SCH ×2 (09:43→20:43)
[2021-08-11] MEDS: PANTOPRAZOLE 40 MG INJ VIAL IVP SCH ×2 (09:45→20:43)
[2021-08-11] MEDS: CINACALCET 30 MG TAB PO SCH ×2 (09:48→16:47)
[2021-08-11] MEDS: METOCLOPRAMIDE 10 MG/2 ML INJ VIAL IVP PRN (10:07)
[2021-08-11 16:37] LABS: AMYLASE 13 U/L (25-115); LIPASE 101 U/L (73-393)
[2021-08-11] MEDS: MAG SULF 2000 MG/WATER PREMIX 50 ML IV SCH ×2 (16:47→18:08)
[2021-08-11 17:36] VITALS: BP 99/51
--- NOTE | 2021-08-11 19:20 | NUR ---
RECEIVED REPORT FROM AM NURSE. PATIENT IS SLEEPING, NO S/S OF RESPIRATORY DISTRESS. CHEST RISE AND FALL SYMMETRICALLY. O2 AT 3L NC. SAFETY MEASURES IN PLACE. CALL LIGHT WITHIN REACH. WILL CONTINUE TO MONITOR.
--- NOTE | 2021-08-11 19:50 | NUR ---
PT PRESENTS LYING ASLEEP IN BED W/ NO SIGNS OF RESPIRATORY DISTRESS SATING 99% ON 2LPM NC. GAVE PT HER TX SHE TOLERATED WELL. WILL CONTINUE TO MONITOR.
--- NOTE | 2021-08-11 20:42 | NUR ---
ALL 2100 MEDS ADMINISTERED ORDERED. NO COMPLAINTS OF PAIN AT THIS TIME.
[2021-08-11] MEDS: SENNA 8.6 MG TAB PO SCH (20:44)
[2021-08-11] MEDS: KCL 20 MEQ/WATER INJ PREMIX 100 ML IV SCH ×2 (20:55→23:02)
[2021-08-11] MEDS: LATANOPROST 0.005% OP 2.5 ML BTL OP SCH (21:02)
[2021-08-11] MEDS: AMITRIPTYLINE 10 MG TAB PO SCH (21:07)
[2021-08-12] VITALS: BP 115/61
[2021-08-12] MEDS: HYDRAGUARD CREAM TP SCH ×2 (01:00→13:52)
--- NOTE | 2021-08-12 02:00 | NUR ---
ROUNDED PATIENT, PT IS SLEEPING, NO SOB NOTED. CALL LIGHT WITHIN REACH.
[2021-08-12] MEDS: BLOOD GLUCOSE MONITORING 1 DEV DEV FS SCH ×4 (06:49→20:35)
[2021-08-12] MEDS: ALBUTEROL SULFATE/IPRATROPIU 3 ML SOL IH SCH ×2 (07:25→13:02)
--- NOTE | 2021-08-12 07:45 | NUR ---
RECEIVED. REPORT FROM PM SHIFT RN FOR CONTINUITY OF CARE. PT. SLEEPING IN THE BED WITHOUT DISTRESS WITH NC 3 LPM.. ALL SAFETY MEASURES IN PLACED. WILL CONTINUE TO MONITOR THE PATIENT.
[2021-08-12 07:54] LABS: BASOPHILS % (AUTO) 0.7 % (0.0-2.0); EOSINOPHILS # (AUTO) 0.4 K/uL (0-0.4); EOSINOPHILS % (AUTO) 6.8 % (0.0-4.0); HEMATOCRIT 34.5 % (36-48); HEMOGLOBIN 11.1 g/dL (12.0-16.0); LYMPHOCYTES # (AUTO) 1.6 K/uL (2.5-16.5); MEAN CORPUSCULAR HEMOGLOBIN 27 pg (27-31); MEAN CORPUSCULAR HGB CONC 32 g/dL (33-37); MEAN CORPUSCULAR VOLUME 84.2 fL (80-94); MONOCYTES # (AUTO) 0.6 K/uL (0.8-1.0); MONOCYTES % (AUTO) 9.1 % (1.7-9.3); NEUTROPHILS # (AUTO) 3.6 K/uL (1.8-7.7); NEUTROPHILS % (AUTO) 57.4 % (42.2-75.2); PLATELET COUNT (AUTO) 548 K/uL (140-450); RED CELL DISTRIBUTION WIDTH 21.2 % (11.6-13.7); WHITE BLOOD COUNT (AUTO) 6.2 K/uL (4.8-10.8)
[2021-08-12 08:00] VITALS: BP 111/78
[2021-08-12 08:50] LABS: ALBUMIN 1.4 g/dL (3.4-5.0); ANION GAP 9.8 (8-16); ASPARTATE AMINOTRANSFERASE 89 U/L (15-37); CARBON DIOXIDE 24.1 mmol/L (21-32); CHLORIDE 109 mmol/L (98-107); CREATININE 0.7 mg/dL (0.6-1.3); GLUCOSE 90 mg/dL (74-106); MAGNESIUM 1.9 mg/dL (1.8-2.4); PHOSPHORUS 3.2 mg/dL (2.5-4.9); POTASSIUM 3.9 mmol/L (3.5-5.1); SODIUM SERUM 139 mmol/L (136-145); TOTAL BILIRUBIN 0.4 mg/dL (0.0-1.0); UREA NITROGEN, BLOOD 5 mg/dL (7-18)
[2021-08-12] MEDS: DORZOLAMIDE 2% OP 10 ML BTL OP SCH (09:00)
--- NOTE | 2021-08-12 09:00 | NUR ---
PT. C/O NAUSEA. MEDICATED WITH PRN REGLAN ORDER. PT. STABLE WITH NASAL O2 3LPM. NOT IN DISTRESS ALL SAFETY MEASURES IN PLACED WILL CONTINUE TO MONITOR THE PT.
[2021-08-12] MEDS: METOCLOPRAMIDE 10 MG/2 ML INJ VIAL IVP PRN (09:16)
[2021-08-12] MEDS: PANTOPRAZOLE 40 MG INJ VIAL IVP SCH ×2 (09:31→20:35)
[2021-08-12] MEDS: MAGNESIUM OXIDE 400 MG TAB PO SCH (09:31)
[2021-08-12] MEDS: FERROUS SULFATE 325 MG TABEC PO SCH ×2 (09:32→20:37)
[2021-08-12] MEDS: CINACALCET 30 MG TAB PO SCH ×2 (09:32→17:10)
[2021-08-12] MEDS: amLODIPine 5 MG TAB PO SCH (09:33)
[2021-08-12] MEDS: SPIRONOLACTONE 50 MG TAB PO SCH (09:33)
[2021-08-12] MEDS: lisinopriL 10 MG TAB PO SCH (09:33)
[2021-08-12] MEDS: POTASSIUM CHLORIDE 20% 40 MEQ/15 ML UDC GT SCH (09:35)
[2021-08-12] MEDS: DEXT 5% / NACL 0.45% 1,000 ML IV SCH ×2 (10:05→20:38)
--- NOTE | 2021-08-12 11:30 | NUR ---
PT. COMFORTABLY SLEEPING IN THE BED. NO ACUTE DISTRESS NOTED. NO FURTHER C/O NAUSEA ALL SAFETY MEASURES IN PLACED. WILL CONTINUE TO MONITOR THE PT.
--- NOTE | 2021-08-12 12:00 | NUR ---
NOTED PIV WAS LEAKAGE. CHEKED IV ACCESS WAS OUT. INSERTAED NEW PIV RIGHT HAND DORSUM 22 G WITH GOOD BLOOD RETURNED
--- NOTE | 2021-08-12 14:00 | NUR ---
PT. STABLE, RESTING IN THE BED WITHOUT S/S OF DISTRESS. RESP. NORMAL. SAFETY MEASURES IN PLACED WILL CONTINUE TO MONITOR THE PT.
[2021-08-12 16:00] VITALS: BP 100/46
--- NOTE | 2021-08-12 16:40 | NUR ---
ROUNDED TO THE PT. ROOM. PT. COMFORTABLY SLEEPING IN THE BED. NO ACUTE DISTRESS NOTED. WILL CONTINUE TO MONITOR THE PT.
--- NOTE | 2021-08-12 19:03 | NUR ---
PT. STABLE RESTING IN THE BED. WILL ENDORSE REPORT TO PM SHIFT RN. FOR CONTINUITY OF CARE.
--- NOTE | 2021-08-12 20:00 | NUR ---
AAO, ON O2 AT 2LNC, ON IVF OF D5 1/2 NS AT 80 ML/HR, IV SITE ON RIGHT HAND G#22 PATENT AND INTACT. INCONTINENT, USING DIAPER, TURNED AND REPOSITIONED, HOB ELEVATED, CALL LIGHT WITHIN REACH, DENIES PAIN.
[2021-08-12] MEDS: AMITRIPTYLINE 10 MG TAB PO SCH (20:36)
[2021-08-12] MEDS: LATANOPROST 0.005% OP 2.5 ML BTL OP SCH (20:36)
[2021-08-12] MEDS: SENNA 8.6 MG TAB PO SCH (20:48)
--- NOTE | 2021-08-13 | NUR ---
PATIENT ASLEEP, CALL LIGHT WITHIN REACH, NO DISTRESS.
[2021-08-13] MEDS: HYDRAGUARD CREAM TP SCH ×2 (01:26→12:41)
[2021-08-13 04:00] VITALS: BP 117/50
--- NOTE | 2021-08-13 04:00 | NUR ---
PATIENT ASLEEP, TURNED AND REPOSITIONED, DENIES PAIN.
[2021-08-13] MEDS: BLOOD GLUCOSE MONITORING 1 DEV DEV FS SCH ×2 (06:25→11:30)
--- NOTE | 2021-08-13 06:26 | NUR ---
PATIENT AASLEEP, AROUSABLE, BS CHECKED DONE, 87, NO INSULIN COVERAGE, TURNED AND REPOSITIONED. DENIES PAIN.
[2021-08-13 07:02] LABS: BASOPHILS # (AUTO) 0.1 K/uL (0.00-0.22); EOSINOPHILS # (AUTO) 0.6 K/uL (0-0.4); EOSINOPHILS % (AUTO) 7.8 % (0.0-4.0); HEMOGLOBIN 8.5 g/dL (12.0-16.0); LYMPHOCYTES # (AUTO) 1.6 K/uL (2.5-16.5); LYMPHOCYTES % (AUTO) 21.1 % (20.5-51.1); MEAN CORPUSCULAR HEMOGLOBIN 28 pg (27-31); MEAN CORPUSCULAR HGB CONC 33 g/dL (33-37); MEAN CORPUSCULAR VOLUME 84.6 fL (80-94); MONOCYTES # (AUTO) 0.6 K/uL (0.8-1.0); MONOCYTES % (AUTO) 8.4 % (1.7-9.3); NEUTROPHILS # (AUTO) 4.7 K/uL (1.8-7.7); NEUTROPHILS % (AUTO) 61.7 % (42.2-75.2); PLATELET COUNT (AUTO) 638 K/uL (140-450); RED BLOOD CELL COUNT(AUTO) 3.07 MIL/uL (4.20-5.40); RED CELL DISTRIBUTION WIDTH 20.9 % (11.6-13.7); WHITE BLOOD COUNT (AUTO) 7.6 K/uL (4.8-10.8)
[2021-08-13 07:28] LABS: ALBUMIN 1.3 g/dL (3.4-5.0); ANION GAP 9.5 (8-16); ASPARTATE AMINOTRANSFERASE 107 U/L (15-37); CARBON DIOXIDE 21.7 mmol/L (21-32); CHLORIDE 109 mmol/L (98-107); CREATININE 0.6 mg/dL (0.6-1.3); GLUCOSE 94 mg/dL (74-106); MAGNESIUM 1.2 mg/dL (1.8-2.4); PHOSPHORUS 2.9 mg/dL (2.5-4.9); POTASSIUM 3.2 mmol/L (3.5-5.1); SODIUM SERUM 137 mmol/L (136-145); TOTAL BILIRUBIN 0.4 mg/dL (0.0-1.0); UREA NITROGEN, BLOOD 4 mg/dL (7-18)
--- NOTE | 2021-08-13 07:41 | NUR ---
ENDORSED PATIENT AND REPORT GIVEN TO ELISA HENDERSON/GARRICK FOR CONTINUITY OF CARE.
--- NOTE | 2021-08-13 07:45 | NUR ---
RECEIVED PT FROM NIGHT RN, PT IS ASLEEP AND LYING ON THE BED, RESPIRATION IS EVEN, VISIBLE CHEST RISE AND FALL, SIDE RAILS ARE UP AND CALL LIGHT WITHIN REACH, IV LINE NOTED ON THE RT HAND G. 22 WITH D5 1/2 NS INFUSING AT 80ML/HR, INTACT, PT IS ON O2 2L NC, NO SIGN OF DISTRESS NO JANE AND WILL CONTINUE TO MONITOR PT.
[2021-08-13] MEDS: amLODIPine 5 MG TAB PO SCH (09:00)
[2021-08-13] MEDS: lisinopriL 10 MG TAB PO SCH (09:00)
[2021-08-13] MEDS: PANTOPRAZOLE 40 MG INJ VIAL IVP SCH (09:28)
[2021-08-13] MEDS: FERROUS SULFATE 325 MG TABEC PO SCH (09:28)
[2021-08-13] MEDS: CINACALCET 30 MG TAB PO SCH (09:29)
[2021-08-13] MEDS: SPIRONOLACTONE 50 MG TAB PO SCH (09:29)
[2021-08-13] MEDS: MAGNESIUM OXIDE 400 MG TAB PO SCH (09:30)
--- NOTE | 2021-08-13 09:30 | NUR ---
PT WAS GIVEN THE SCHEDULED AM MEDICATIONS, BP IS 99/50 AND BP MED WAS HELD, MD NOTIFIED.
[2021-08-13] MEDS: POTASSIUM CHLORIDE 20% 40 MEQ/15 ML UDC GT SCH (09:36)
[2021-08-13] MEDS: DORZOLAMIDE 2% OP 10 ML BTL OP SCH (09:37)
[2021-08-13] MEDS: DEXT 5% / NACL 0.45% 1,000 ML IV SCH (11:55)
[2021-08-13 12:00] VITALS: BP 99/50
[2021-08-13] MEDS: METOCLOPRAMIDE 10 MG/2 ML INJ VIAL IVP PRN (12:41)
--- NOTE | 2021-08-13 12:41 | NUR ---
PT WAS GIVEN REGLAN FOR NAUSEA.
--- NOTE | 2021-08-13 13:04 | NUR ---
PHYSICAL THERAPY CO-SIGN The Physical Therapy Progress Notes documented by Supervisor Hand Workers have been reviewed. Reviewed/Co-Signed by: Cookie Gonzalez Documentation Done by: SANDI BNEJAMIN PTA
--- NOTE | 2021-08-13 14:15 | NUR ---
CALLED [facility] AT [phone] AND GAVE REPORT TO LEE KEENAN REGARDING CARE MANAGEMENT OF PT. PT WILL BE MATERIALS INSPECTOR BY [facility] AND WILL BE PLACE IN RM 16B.
--- NOTE | 2021-08-13 15:25 | NUR ---
DISCHARGED PT TO [facility] ACCOMPAN[facility] BY [facility] TRANSPORT PERSONNEL, IV LINE REMOVED, ON BEDSIDE, DISCHARGED TEACHINGS GIVEN TO PT AND AND VERBALIZED UNDERSTANDING.
== END 2021-08-13 15:28 | DRG 871 ==
LOC: MED 15:27 → MTU 18:20 → MMU 08-12 01:00 → UNDODISIN 08-13 15:28
PROVIDERS: ADMIT Family Medicine; ATTEND Family Medicine
PROC: 0DB78ZX Excision of Stomach, Pylorus, Via Natural or Artificial Opening Endoscopic, Diagnostic (ICD-10-PCS; 2021-07-29)
PROC: 0DB68ZX Excision of Stomach, Via Natural or Artificial Opening Endoscopic, Diagnostic (ICD-10-PCS; principal; 2021-07-29 12:30)
DX: A41.9 Sepsis, unspecified organism (principal); E43 Unspecified severe protein-calorie malnutrition; G93.41 Metabolic encephalopathy; J15.5 Pneumonia due to Escherichia coli; J69.0 Pneumonitis due to inhalation of food and vomit; J96.21 Acute and chronic respiratory failure with hypoxia; R65.21 Severe sepsis with septic shock; E87.0 Hyperosmolality and hypernatremia; N39.0 Urinary tract infection, site not specified; Z16.12 Extended spectrum beta lactamase (ESBL) resistance; D64.9 Anemia, unspecified; E11.9 Type 2 diabetes mellitus without complications; E66.01 Morbid (severe) obesity due to excess calories; E78.2 Mixed hyperlipidemia; E83.42 Hypomagnesemia; E83.52 Hypercalcemia; E86.0 Dehydration; E87.5 Hyperkalemia; E87.6 Hypokalemia; I10 Essential (primary) hypertension; K21.00 Gastro-esophageal reflux disease with esophagitis, without bleeding; K25.9 Gastric ulcer, unspecified as acute or chronic, without hemorrhage or perforation; K52.9 Noninfective gastroenteritis and colitis, unspecified; Z20.822 Contact with and (suspected) exposure to COVID-19; H70.893 Other mastoiditis and related conditions, bilateral; K57.30 Diverticulosis of large intestine without perforation or abscess without bleeding; R13.10 Dysphagia, unspecified; Z68.31 Body mass index [BMI] 31.0-31.9, adult; Z88.0 Allergy status to penicillin; Z79.899 Other long term (current) drug therapy
CPT/HCPCS: 36415; 36600; 51702; 70450; 71045; 73562; 76536; 76700; 76705; 76881; 80048; 80053; 81001; 82150; 82306; 82330; 82803; 82948; 83036; 83605; 83690; 83735; 83880; 84100; 84436; 84439; 84443; 84479; 84484; 85025; 85610; 85730; 86677; 87040; 87070; 87081; 87086; 87205; 87804; 88305; 88312; 88313; 88342; 89220; 92610; 93005; 94640; 96361; 96365; 96367; 96375; 97110; 97112; 97163-GP; 97530; 99285; C9113; J1200; J1450; J1644; J1940; J1956; J2185; J2250; J2270; J2405; J2430; J2765; J3010; J3475; J3480; J3490; J7030; J7060; P9046; Q0092

== ENCOUNTER 2021-08-18 11:49 | Inpatient (IN) | payer BC, SELFPAY ==
[~2021-08-18] VITALS: Ht 167.6 cm; Wt 90.7 kg
[~2021-08-18 11:49] MED LIST changes: +ACET-8386 PO; +ALBU3SOL83 IH; +AMLO5TAB PO; +CALC-1030 PO; +CETI10TA81 PO; +DORZ10SO11 OP; +FERR325E14 PO; -IV Levaquin IV; +LISI10TA30 PO; +MERO1PIG IV; +METF-1243 PO; +METO-485 PO; +METO25TE2 PO; +MULT-1328 PO; +NETA2.5D OP; +ONDA4TAB PO; +PANT40EC PO; +ROSU20TA1 PO; +SEN30 PO; +SIME80TA22 PO; -VANC125C11 PO; +XALOS OP; +[UNRECOGNIZED DRUG - CODE] NS
--- NOTE | 2021-08-18 12:07 | NUR ---
PT BIBA TO BED 12.
[2021-08-18] MEDS ORDERED: DEXTROSE 50% 50 ML SYR IVP ONE ×2 (12:14→12:25)
[2021-08-18 12:15] VITALS: BP 121/52
[2021-08-18] MEDS ORDERED: NACL 0.9% 1,000 ML IV ONE (12:25)
--- NOTE | 2021-08-18 13:07 | NUR ---
PT MOVED TO 11 VIA [facility].
--- NOTE | 2021-08-18 13:36 | NUR ---
LAB AT BEDSIDE
--- NOTE | 2021-08-18 13:50 | NUR ---
76 Y/O FEMALE BIBA FROM [facility] C/O NAUSEA/VOMITING X5 DAYS. PER MEDICS, PT IS ON ALL LIQUID DIET, AND IS NOT ABLE TO KEEP ANYTHING DOWN. PT WAS D/C HERE 08/13. PT ON 3L N/C PMH: HTN, DM2, ANEMIA, HLD, GLAUCOMA, ALLERGIES: PENICILLIN.
--- NOTE | 2021-08-18 13:58 | NUR ---
Note linda in EDM - 08/18/21 at 1359 by [email or web address] 76 Y/O FEMALE BIBA FROM [facility] C/O NAUSEA/VOMITING X5 DAYS. PER MEDICS, PT IS ON ALL LIQUID DIET, AND IS NOT ABLE TO KEEP ANYTHING DOWN. PT WAS D/C HERE 08/13. PT ON 3L N/C PMH: DM2, ANEMIA, HLD, GLAUCOME, ALLERGIES: PENICILLIN.
[2021-08-18 14:02] LABS: BASOPHILS # (AUTO) 0.1 K/uL (0.00-0.22); BASOPHILS % (AUTO) 1.1 % (0.0-2.0); EOSINOPHILS # (AUTO) 0.4 K/uL (0-0.4); EOSINOPHILS % (AUTO) 4.8 % (0.0-4.0); HEMATOCRIT 30.4 % (36-48); HEMOGLOBIN 9.9 g/dL (12.0-16.0); LYMPHOCYTES # (AUTO) 1.8 K/uL (2.5-16.5); LYMPHOCYTES % (AUTO) 21.9 % (20.5-51.1); MEAN CORPUSCULAR HEMOGLOBIN 28 pg (27-31); MEAN CORPUSCULAR HGB CONC 33 g/dL (33-37); MEAN CORPUSCULAR VOLUME 84.5 fL (80-94); MONOCYTES # (AUTO) 0.6 K/uL (0.8-1.0); MONOCYTES % (AUTO) 7.6 % (1.7-9.3); NEUTROPHILS # (AUTO) 5.3 K/uL (1.8-7.7); NEUTROPHILS % (AUTO) 64.6 % (42.2-75.2); PLATELET COUNT (AUTO) 707 K/uL (140-450); RED CELL DISTRIBUTION WIDTH 19.5 % (11.6-13.7); WHITE BLOOD COUNT (AUTO) 8.2 K/uL (4.8-10.8)
[2021-08-18] MEDS ORDERED: PROM25TA27 PO (14:04)
[2021-08-18 14:49] LABS: ANION GAP 10.9 (8-16); CARBON DIOXIDE 24.2 mmol/L (21-32); CHLORIDE 107 mmol/L (98-107); CREATININE 1.3 mg/dL (0.6-1.3); GLUCOSE 105 mg/dL (74-106); POTASSIUM 3.1 mmol/L (3.5-5.1); SODIUM SERUM 139 mmol/L (136-145); UREA NITROGEN, BLOOD 16 mg/dL (7-18)
[2021-08-18 15:06] LABS: ALBUMIN 1.6 g/dL (3.4-5.0); BILIRUBIN,DIRECT 0.2 mg/dL (0.0-0.3); TOTAL BILIRUBIN 0.4 mg/dL (0.0-1.0)
[2021-08-18] MEDS ORDERED: DEXT 5% / LACT RING 500 ML IV ONE (15:50)
--- NOTE | 2021-08-18 16:43 | NUR ---
MIMI COLLECTED AND SENT TO LAB
[2021-08-18] MEDS ORDERED: DOCUSATE SODIUM 100 MG GELCAP PO PRN (17:50)
[2021-08-18] MEDS ORDERED: HYDROcodone/APAP 7.5/325 MG 1 TAB PO PRN (17:50)
[2021-08-18] MEDS: DEXT 5% /NACL 0.9% 1,000 ML IV SCH (17:50)
[2021-08-18] MEDS ORDERED: guaiFENesin DM 200/20 MG-10 ML 10 ML UDC PO PRN (17:50)
[2021-08-18] MEDS ORDERED: ZOLPIDEM 5 MG TAB PO PRN (17:50)
[2021-08-18] MEDS ORDERED: POTASSIUM CHLORIDE 10 MEQ TABER PO PRN (17:50)
[2021-08-18] MEDS ORDERED: ACETAMINOPHEN 325 MG TAB PO PRN (17:50)
[2021-08-18] MEDS ORDERED: DEXTROSE 50% 50 ML SYR IVP PRN (17:55)
[2021-08-18] MEDS ORDERED: SIMETHICONE 80 MG TAB.CHEW PO PRN (17:55)
[2021-08-18] MEDS ORDERED: HYDROcodone/APAP 5/325 MG 1 TAB TAB PO PRN ×2 (17:55)
[2021-08-18] MEDS ORDERED: INSULIN LISPRO SLIDING SCALE 100 UNITS/ML VIAL SUBQ PRN (17:55)
[2021-08-18] MEDS ORDERED: PROMETHAZINE 25 MG TAB PO SCH (18:00)
--- NOTE | 2021-08-18 18:00 | NUR ---
Patient appears to be resting comfortably in bed. Vital Signs within normal limits. Respirations even and unlabored. ON 5L NASAL CANNULA
[2021-08-18 19:01] LABS: PROTHROMBIN TIME 12.8 secs (10.8-13.4)
--- NOTE | 2021-08-18 19:27 | NUR ---
Pt report given to CINDY MCCAULEY. Transfer of care at this time.
[2021-08-18 19:31] LABS: CHOL/HDL RATIO 3.9 (1-4.5); FREE T4 (FREE THYROXINE) 1.48 ng/dL (0.76-1.46); MAGNESIUM 1.2 mg/dL (1.8-2.4); PHOSPHORUS 3.7 mg/dL (2.5-4.9); THYROID STIMULATING HORMONE 1.14 uIU/mL (0.34-3.74)
--- NOTE | 2021-08-18 19:45 | NUR ---
RECIEVED PATIENT SOAKED WITH URINE, CLEANED AND KEEP CLEAN AND COMFORTABLE. IV ACCESS INFILTRATED AND INSERTED TO LEFT HAND , PATENT, INTACT AND IVF INFUSING WELL.
[2021-08-18] MEDS: CINACALCET 30 MG TAB PO SCH (20:00)
[2021-08-18] MEDS: BLOOD GLUCOSE MONITORING 1 DEV DEV FS SCH (21:00)
--- NOTE | 2021-08-18 21:00 | NUR ---
ALL DUE MEDS ADMINISTERED , TOLERATED WELL.ON NPO EXCEPT MEDICINES, MAINTAINED AND OBSERVED.
--- NOTE | 2021-08-19 00:10 | NUR ---
Patient appears to be resting comfortably in bed. Vital Signs within normal limits. Respirations even and unlabored.
[2021-08-19] MEDS: DEXT 5% /NACL 0.9% 1,000 ML IV SCH ×2 (02:16→09:14)
--- NOTE | 2021-08-19 04:00 | NUR ---
SWAB FOR MIMI, COLLECTED URINE AND SENT TO LAB
--- NOTE | 2021-08-19 04:45 | NUR ---
COMPLAINED OF N/V, PRN MEDS WAS GIVEN, ZOFRAN 4 MG IVP .
[2021-08-19 05:07] LABS: APPEARANCE,URINE CLEAR (CLEAR); BILIRUBIN,URINE NEGATIVE (NEGATIVE); BLOOD, URINE NEGATIVE (NEGATIVE); COLOR,URINE YELLOW (YELLOW); LEUKOCYTE ESTERASE ,URINE NEGATIVE (NEGATIVE); NITRITE, URINE NEGATIVE (NEGATIVE); UGLUCOSE NEGATIVE (NEGATIVE)
[2021-08-19 05:20] LABS: BARBITURATE, URINE NEGATIVE ng/ml (NEG <=200); BENZODIAZEPINE, URINE NEGATIVE ng/mL (NEG <=200); CANNABINOID, URINE NEGATIVE ng/mL (NEG <=50); COCAINE, URINE NEGATIVE ng/mL (NEG <=300); OPIATE, URINE POSITIVE ng/mL (NEG <=2000); PHENCYCLIDINE SCREEN,URINE NEGATIVE ng/mL (NEG <=25)
[2021-08-19] MEDS: ONDANSETRON 4 MG/2 ML VIAL IM/IVP PRN ×2 (06:09→17:58)
--- NOTE | 2021-08-19 07:26 | NUR ---
report given to Marlyn Vargas, transfer of care at this time.
[2021-08-19] MEDS ORDERED: METOCLOPRAMIDE 10 MG TAB PO SCH (07:30)
[2021-08-19] MEDS: BLOOD GLUCOSE MONITORING 1 DEV DEV FS SCH ×4 (07:30→20:59)
--- NOTE | 2021-08-19 08:13 | NUR ---
WILL DISCUSS PLAN OF CARE WITH REE MCKEON, AND WAIT FOR PT TO ARRIVE TO UNIT.
--- NOTE | 2021-08-19 08:45 | NUR ---
RECEIVED CALL FROM NURSE BRYSON FROM ER FOR REPORT FOR CONTINUITY OF CARE.
[2021-08-19] MEDS ORDERED: PANTOPRAZOLE 40 MG INJ VIAL IVP SCH (09:00)
[2021-08-19] MEDS ORDERED: amLODIPine 5 MG TAB PO SCH (09:00)
--- NOTE | 2021-08-19 09:14 | NUR ---
PATIENT HAS BEEN SCREENED AND CATEGORIZED MODERATE NUTRITION RISK. PATIENT WILL BE SEEN WITHIN 3-5 DAYS OF ADMISSION. 08/21/21-08/23/21 REVIEWED BY DECLAN VALENZUELA RD
--- NOTE | 2021-08-19 09:22 | NUR ---
PT ARRIVED VIA GUNEY FROM ER ALERT AND VERBALLY RESPONSIVE.
[2021-08-19] MEDS: ASPIRIN 325 MG TAB PO SCH (10:05)
[2021-08-19] MEDS: FERROUS SULFATE 325 MG TABEC PO SCH (10:05)
[2021-08-19] MEDS: CINACALCET 30 MG TAB PO SCH ×2 (10:05→17:44)
[2021-08-19 10:28] LABS: ANION GAP 8.1 (8-16); CARBON DIOXIDE 25.7 mmol/L (21-32); CHLORIDE 110 mmol/L (98-107); CREATININE 1.2 mg/dL (0.6-1.3); GLUCOSE 103 mg/dL (74-106); SODIUM SERUM 141 mmol/L (136-145); UREA NITROGEN, BLOOD 14 mg/dL (7-18)
[2021-08-19 10:33] LABS: POTASSIUM 2.8 mmol/L (3.5-5.1)
--- NOTE | 2021-08-19 10:35 | NUR ---
RECEIVED LAB REPORT OF POTASSIUM OF 2.8 AND CALCIUM OF 10.9 LEFT MESSAGE TO DOCTOR.
[2021-08-19 10:53] LABS: BASOPHILS # (AUTO) 0.1 K/uL (0.00-0.22); BASOPHILS % (AUTO) 0.8 % (0.0-2.0); EOSINOPHILS # (AUTO) 0.3 K/uL (0-0.4); EOSINOPHILS % (AUTO) 3.6 % (0.0-4.0); HEMATOCRIT 27.9 % (36-48); HEMOGLOBIN 9.2 g/dL (12.0-16.0); LYMPHOCYTES # (AUTO) 1.6 K/uL (2.5-16.5); LYMPHOCYTES % (AUTO) 20.2 % (20.5-51.1); MEAN CORPUSCULAR HEMOGLOBIN 28 pg (27-31); MEAN CORPUSCULAR HGB CONC 33 g/dL (33-37); MEAN CORPUSCULAR VOLUME 84.5 fL (80-94); MONOCYTES # (AUTO) 0.7 K/uL (0.8-1.0); MONOCYTES % (AUTO) 8.9 % (1.7-9.3); NEUTROPHILS # (AUTO) 5.3 K/uL (1.8-7.7); NEUTROPHILS % (AUTO) 66.5 % (42.2-75.2); PLATELET COUNT (AUTO) 709 K/uL (140-450); RED BLOOD CELL COUNT(AUTO) 3.31 MIL/uL (4.20-5.40); RED CELL DISTRIBUTION WIDTH 19.8 % (11.6-13.7)
[2021-08-19 12:00] VITALS: BP 120/62
[2021-08-19] MEDS: POTASSIUM CHL 20MEQ/D5-NS 1,000 ML IV SCH ×2 (14:00→18:06)
--- NOTE | 2021-08-19 15:47 | NUR ---
NGT INSERTED PLACEMENT VERIFIED WITH 2 NURSE. WITH ORDER FOR CHEST X RAY.
[2021-08-19 16:00] VITALS: BP 120/62
--- NOTE | 2021-08-19 17:07 | NUR ---
PT PULLED HER NGT STATED SHE DOESN'T WANT TO HAVE TUBE ON HER NOSE.
[2021-08-19] MEDS: ERYTHROMYCIN 200 MG in NACL 0.9% 100 ML IV SCH (17:57)
[2021-08-19] MEDS: PANTOPRAZOLE 40 MG INJ VIAL IVP SCH (17:57)
--- NOTE | 2021-08-19 17:59 | NUR ---
PT . REFUSED NGT RE INSERTION - REFER TO DR López ESTRELLA .
--- NOTE | 2021-08-19 18:00 | NUR ---
GIVEN ZOFRAN FOR COMPLAIN THAT SHE CAN'T EAT DUE TO NAUSEA
--- NOTE | 2021-08-19 19:00 | NUR ---
DR. ROSSI INFORM THAT SHE PULLED THE NGT AND SHE SAID SHE DOESN'T WANT TUBE ON HER NOSE . PT ON NPO EXCEPT MEDS ONLY ON IVF. DR. ROSSI RESPONDED JUST LEAVE HER ALONE FOR NOW.
--- NOTE | 2021-08-19 19:30 | NUR ---
ENDORSE TO TUBE WRAPPER NURSE FOR CONTINUITY OF CARE.
--- NOTE | 2021-08-19 19:31 | NUR ---
RECEIVED ENDORSEMENT FROM AM NURSE. PATIENT IS AWAKE, WELL RESTED. NO ACUTE DISTRESS NOTED. BREATHING EVEN UNLABORED. IVF POTASSIUM 20 MEQ INFUSING PER MD ORDERED. NO COMPLAINTS OF PAIN AT THIS TIME. SAFETY MEASURES IN PLACE. CALL LIGHT WITHIN REACH. WILL CONTINUE TO MONITOR.
[2021-08-19 20:00] VITALS: BP 117/60
[2021-08-19 20:10] VITALS: BP 115/77
[2021-08-19] MEDS: SENNA 8.6 MG TAB PO SCH (20:57)
[2021-08-19] MEDS: LACTULOSE 20 GM/30 ML UDC PO SCH (20:57)
--- NOTE | 2021-08-19 20:57 | NUR ---
ADMINISTERED MEDS ORDERED. NEEDS ATTENDED TO. CALL LIGHT WITHIN REACH.
[2021-08-20] MEDS: ERYTHROMYCIN 200 MG in NACL 0.9% 100 ML IV SCH ×5 (05:24→17:38)
[2021-08-20 06:51] LABS: BASOPHILS # (AUTO) 0.1 K/uL (0.00-0.22); BASOPHILS % (AUTO) 0.8 % (0.0-2.0); EOSINOPHILS # (AUTO) 0.3 K/uL (0-0.4); EOSINOPHILS % (AUTO) 3.3 % (0.0-4.0); HEMATOCRIT 27.2 % (36-48); LYMPHOCYTES # (AUTO) 2.1 K/uL (2.5-16.5); LYMPHOCYTES % (AUTO) 24.8 % (20.5-51.1); MEAN CORPUSCULAR HEMOGLOBIN 28 pg (27-31); MEAN CORPUSCULAR HGB CONC 33 g/dL (33-37); MEAN CORPUSCULAR VOLUME 85.3 fL (80-94); MONOCYTES # (AUTO) 0.6 K/uL (0.8-1.0); MONOCYTES % (AUTO) 7.6 % (1.7-9.3); NEUTROPHILS # (AUTO) 5.4 K/uL (1.8-7.7); NEUTROPHILS % (AUTO) 63.5 % (42.2-75.2); PLATELET COUNT (AUTO) 612 K/uL (140-450); RED BLOOD CELL COUNT(AUTO) 3.19 MIL/uL (4.20-5.40); RED CELL DISTRIBUTION WIDTH 19.6 % (11.6-13.7); WHITE BLOOD COUNT (AUTO) 8.4 K/uL (4.8-10.8)
[2021-08-20 07:08] LABS: T4 (THYROXINE) 7.8 ug/dL (4.5-12.0)
[2021-08-20 07:24] LABS: CARBON DIOXIDE 23.8 mmol/L (21-32); CHLORIDE 114 mmol/L (98-107); CREATININE 1.2 mg/dL (0.6-1.3); GLUCOSE 101 mg/dL (74-106); SODIUM SERUM 144 mmol/L (136-145); UREA NITROGEN, BLOOD 14 mg/dL (7-18)
[2021-08-20 07:29] LABS: POTASSIUM 2.8 mmol/L (3.5-5.1)
--- NOTE | 2021-08-20 07:30 | NUR ---
RECEIVED ABNORMAL POTASSIUM LEVEL OF 2.[address] ROSSI.
[2021-08-20 08:00] VITALS: BP 127/55
[2021-08-20] MEDS: BLOOD GLUCOSE MONITORING 1 DEV DEV FS SCH ×4 (08:01→21:40)
[2021-08-20] MEDS: PANTOPRAZOLE 40 MG INJ VIAL IVP SCH ×2 (08:01→17:38)
--- NOTE | 2021-08-20 09:35 | NUR ---
INFORM DR. ROSSI WHEN HE DOING ROUND REGARDING RESIDENT CONDITION AND DIET ORDER AND HE ORDER LIQUID DIET AND PICC LINE INSERTION ORDER NOTED AND CARRIED OUT.
[2021-08-20] MEDS: LACTULOSE 20 GM/30 ML UDC PO SCH ×2 (09:44→21:37)
[2021-08-20] MEDS: ASPIRIN 325 MG TAB PO SCH (09:44)
[2021-08-20] MEDS: CINACALCET 30 MG TAB PO SCH ×2 (09:44→17:21)
[2021-08-20] MEDS: SENNA 8.6 MG TAB PO SCH ×2 (09:45→21:37)
[2021-08-20] MEDS: FERROUS SULFATE 325 MG TABEC PO SCH (09:46)
[2021-08-20] MEDS: POTASSIUM CHL 20MEQ/D5-NS 1,000 ML IV SCH ×2 (10:00→20:00)
--- NOTE | 2021-08-20 10:37 | NUR ---
08/20/2021 RD INITIAL ASSESSMENT COMPLETED PLEASE REFER TO NUTRITION ASSESSMENT UNDER CARE ACTIVITY FOR ESTIMATED NUTRITIONAL NEEDS. CONTINUE FULL LIQUID DIET ORDERED UNTIL FURTHER GI ASSESSMENT COMPLETED. ENSURE TID FOR ADDITIONAL KCALS/PRO CONSIDER ADDING CCHO RESTRICTIONS TO DIET ORDER ONCE PO INTAKE INCREASES OR IF GLUCOSE IS ELEVATED (CURRENTLY WNL) RD TO FOLLOW-UP IN 2-3 DAYS PATIENT IS HIGH RISK. DECLAN VALENZUELA, RD
--- NOTE | 2021-08-20 11:11 | NUR ---
DC PLANNING: VM LEFT BY JAGRUTI HOUSER AT ASKING THAT PATIENT TRANSFER IN NETWORK. [place] SPOKE WITH CORRINA, PLAN IS TO WAIT FOR THE ATTENDING MD OR DR ESTRELLA () TO DETERMINE IF PATIENT NEEDS TERTIARY CARE LEVEL FOR CANCER W/U. CORRINA IS IN AGREEMENT WITH WAITING TO WORK ON TRANSFER UNTIL THIS HAS BEEN DETERMINED, CM WILL FOLLOW FOR NEEDS. Addendum: 08/20/21 at 1508 by Alisa Rueda CM DC PLANNING: [place] SPOKE WITH JAYLENE ROSSI AND DELORES, IN AGREEMENT WITH PATIENT GOING TO [facility] HOSPITAL FOR W/U OF CANCER. DR ESTRELLA STATES THAT HE DOESN'T FEEL PEG PLACEMENT WILL RESOLVE THE PATIENTS ONGOING ISSUES OF N/V AND FOOD INTOLERANCE. [place] SPOKE WITH JAGRUTI WANG FOR ([phone]), SHE WILL START CALLING HOSPITALS TO CHECK ON BED AVAILABILITY AND WILL UPDATE [place] ON WHERE TO SEND CLINICAL INFORMATION. CM WILL FOLLOW. Addendum: 08/21/21 at 0905 by Alisa Rueda CM DC PLANNING: CM SPOKE WITH FELIPE AT , SHE TRIED TO PLACE THE PATIENT AT THE FOLLOWING HOSPITALS, UNSUCESSFULLY THEY'RE AT [place]; [facility], [facility], [facility], [facility], [place], [facility], [facility] AND [place]. CORRINA WILL SPEAK WITH [facility] AND [facility], CM WILL FOLLOW. Addendum: 08/21/21 at 1216 by Alisa Rueda CM DC PLANNING: PATIENT REFERRED TO [facility] ([phone]) PER THEY ARE AN IN-NETWORK HOSPITAL. CM WILL FOLLOW UP FOR ACCEPTANCE AND TRANSFER. Addendum: 08/21/21 at 1436 by Alisa Rueda CM DC PLANNING: PATIENT DECLINED BY [facility] PER BHUPINDER THEY ARE UNABLE TO DO THE CA WORK UP. [place] WILL FOLLOW. Addendum: 08/26/21 at 1458 by Alisa Rueda CM DC PLANNING: PATIENT STARTED ON TPN, [facility] UNABLE TO ACCEPT BECAUSE OF NURSING CONSTRAINTS PER ANNABELLE THE FIRE SPRINKLER DESIGNER. [place] REFERRED TO [facility] AND WILL FOLLOW UP FOR ACCEPTANCE. Addendum: 08/27/21 at 1500 by Alisa Rueda CM DC PLANNING: [facility] AND [facility] ARE CLOSED TO ADMISSIONS FOR 7 DAYS AND UNABLE TO ACCEPT THE PATIENT. [place] SPOKE WITH SHENG AT [facility], SHE STATES THAT NONE OF THE [facility] CONTACTED FACILITIES HAVE BED AVAILABILITY, CM IS TO REFER OUT SIDE OF NETWORK. [place] SENT REFERRALS TO [facility] AND NOAH WHEELER PATIENT IS ON TPN AND NEEDS A FACILITY THAT CAN ACCOMMODATE NURSING FOR TPN. [place] WILL FOLLOW UP FOR PLACEMENT. Addendum: 08/28/21 at 1100 by Alisa Rueda CM DC PLANNING: [facility] UNABLE TO ACCEPT THE PATIENT, WAITING FOR RESPONSE FROM [facility]. [place] SPOKE WITH JAGRUTI WANG FOR [facility] ([phone]) SHE SUGGESTED [facility], [place] WILL FAX A REFERRAL AND FOLLOW FOR NEEDS. Addendum: 08/28/21 at 1607 by Alisa Rueda CM DC PLANNING: [facility] DECLINED BECAUSE OF TPN AND [facility]CI PLACEMENT. REFERRAL FAXED TO [facility]. [place] AND DNAAY MET WITH THE PATIENT AND HER HUMAIRA PATRICK AT BEDSIDE TO DISCUSS [facility] PLANNING FOR NUTRITION. THE PATIENT STATES THAT SHE IS HUNGRY BUT CONTINUES TO VOMIT WHEN SHE EATS. THE PATIENT AND STATED THAT THEY UNDERSTAND THE RESULTS OF DIAGNOSTICS DONE TO DATE AND THAT THEY HAVE HAD REGULAR CONVERSATIONS WITH THE ATTENDING MD'S AT THE HOSPITAL. [place] AND SW EXPLAINED THAT TPN IS SHORT TERM AND THEN DISCUSSED POTENTIAL PEG PLACEMENT. EXPLAINED THAT PEG PLACEMENT DOES NOT MEAN THAT THE PATIENT CAN'T EAT AND TRY TO ADVANCE HER DIET AND FOOD TOLERANCE. ALSO EXPLAINED THAT IT DOESN'T HAVE TO BE PERMANENT BUT THAT A FOOD SOURCE HAS TO BE PROVIDED WELDER MACHINE OPERATOR. THE PATIENT WAS TEARFUL BUT UNDERSTOOD WHAT WAS EXPLAINED, [place] ASKED IF SHE WOULD LIKE SOME TIME TO THINK ABOUT IT AND SHE STATED SHE WOULD. [place] WILL FOLLOW FOR NEEDS. Addendum: 08/29/21 at 1212 by Alisa Rueda CM DC PLANNING: [place] SPOKE WITH MARIA M FROM [facility], PATIENT ACCEPTED CLINICALLY, [facility] WILL CALL THE INTAKE NUMBER TO OPEN A CASE FOR AUTHORIZATION. PER MARIA M BEDS RIGHT NOW ARE "DIFFICULT", CM WILL WAIT FOR FACILITY AND ROOM ASSIGNMENT. ALSO SPOKE WITH [place] WANG AT TO ENDORSE [facility] ACCEPTANCE, ASKED FOR HER HELP TO EXPEDITE AUTH, STATES SHE WILL CALL THE CM ASSIGNED TO GENERATE AN AUTH NUMBER. [place] SPOKE WITH THE PATIENT IN HER ROOM TO ENDORSE [facility] ACCEPTANCE, PATIENT IN AGREEMENT WITH GOING TO [facility]. CM WILL FOLLOW FOR NEEDS. Addendum: 08/29/21 at 1627 by Alisa Rueda CM DC PLANNING: PEG PLACED TODAY, PER MARIA M AT [facility] PATIENT WILL PROBABLY NOT MEET CRITERIA FOR [facility]. CM SPOKE WITH BILL AT [facility], THEY CAN'T TAKE THE PATIENT BACK WITH A PEG THEY DON'T HAVE COMMUNITY BOARD MEMBER FOR THIS. CM LEFT FOR JAGRUTI WANG AT [facility] ASKING FOR HELP IN FINDING A CONTRACTED SNF THAT WILL TAKE A WELDER MACHINE OPERATOR PATIENT. CM WILL FOLLOW FOR NEEDS. Addendum: 08/30/21 at 0908 by Alisa Rueda CM DC PLANNING: [place] SPOKE WITH FELIPE AT , SHE WILL FAX A LIST OF CONTRACTED SNF'S. CM ALSO FOLLOWED UP ON THE REFERRAL TO [facility], WILL NEED TO REFAX THEY CAN'T FIND IT. CM WILL FOLLOW FOR NEEDS. Addendum: 09/02/21 at 1624 by Alisa Rueda CM DC PLANNING: [facility], [facility], [place], [place] [facility], [facility] AND [facility], NONE OF THESE FACILITIES HAVE BEDS. CM WILL CONTINUE TO LOOK. Addendum: 09/03/21 at 1107 by Alisa Rueda CM DC PLANNING: REFERRAL FAXED TO [facility] FOR [facility]ACEMENT. CM WILL FOLLOW. Addendum: 09/03/21 at 1435 by Alisa Rueda CM DC PLANNING: PATIENT ACCEPTED TO [facility] PENDING BLUE CROSS AUTHORIZATION. [place] SPOKE WITH JAGRUTI WANG AT WHO STATES SHE WILL START PROCESS FOR AUTHORIZATION WITH HER UR NURSE. CM NOW WAITING FOR ROOM ASSIGNMENT FROM FACILITY. CM WILL FOLLOW. Addendum: 09/04/21 at 1216 by Alisa Rueda CM DC PLANNING: [place] SPOKE WITH EVANS AT [facility], SHE IS STILL WORKING ON AUTH WITH FOR SNF ADMISSION. [place] WILL FOLLOW. Addendum: 09/05/21 at 1113 by Alisa Rueda CM DC PLANNING: WAITING FOR CONFIRMATION THAT PATIENT CAN GO TO [facility] TODAY, SPEAKING WITH ADMITTING, WILL ARRANGE TRANSPORT ONCE THEY OK IT. CM WILL FOLLOW. Addendum: 09/05/21 at 1241 by Alisa Rueda CM DC PLANNING: PATIENT ACCEPTED TO ROOM 22B, DR ROSSI TO FOLLOW. TRANSPORT ARRANGED WITH [facility] ([phone]) FOR 1830 TO 1900 WITH O2. ENDORSED TO THE PATIENTS NURSE KRUEGER, SHE WILL CALL REPORT. [place] ALSO SPOKE WITH THE PATIENTS HUMAIRA PATRICK AND GAVE HIM THE FACILITY INFORMATION AND HEARING THERAPY DIRECTOR TIME. [place] WILL FOLLOW.
--- NOTE | 2021-08-20 11:57 | NUR ---
BLOOD SUGAR CHECK DONE NOTED WITH 78 BLOOD SUGAR GIVEN JUICE.
--- NOTE | 2021-08-20 12:55 | NUR ---
REFUSED TO EAT LUNCH LIQUID DIET BUT ASKED FOR SODA GIVEN REQUESTED.
--- NOTE | 2021-08-20 15:00 | NUR ---
PT AT BED SIDE.
[2021-08-20 16:00] VITALS: BP 136/78
--- NOTE | 2021-08-20 16:00 | NUR ---
PT SIGN CONSENT FOR GT INSERTION, CT OF HEAD, PELVIS AND ABDOMEN WITH CONTRAST
--- NOTE | 2021-08-20 17:36 | NUR ---
BLOOD SUGAR OF 65 NO PARAMETER TO DETROSE INFORM DR. ROSSI ORDER TO GIVE IT IF BLOOD SUGAR BELOW 80. GARRICK GAVE IVP TOLERATED Addendum: 08/20/21 at 2210 by Juli Rodriguez RN D50/50 - GIVEN THRU IV - MNURLR
[2021-08-20] MEDS ORDERED: DEXTROSE 50% 50 ML SYR IVP PRN (17:40)
--- NOTE | 2021-08-20 19:30 | NUR ---
ENDORSE TO MEDICAL ADVISOR NURSE FOR CONTINUITY OF CARE.
--- NOTE | 2021-08-20 19:31 | NUR ---
RECD RESTING IN BED, AWAKE, A/OX2, RESPIRATION EVEN AND UNLABORED. ON 02 A 2 LITERS VIA N/C.02 SAT -97%. WITH BILATERAL UPPER EXTREMITY EDEMA. INCONTINENT. STILL NO APPETITE TO EAT. IV OF D NS WITH 20 MEQ KCL INFUSING AT 100 ML/HR,LEFT HAND G22. DENIES PAIN 0/10.
--- NOTE | 2021-08-20 21:20 | NUR ---
REVIEWED PLAN OF CARE WITH ERNESTO MCLAUGHLIN LVN AND WILL CONTINUE WITH PLAN OF CARE.
--- NOTE | 2021-08-20 21:37 | NUR ---
SCHEDULED MEDICATION FOR THE NIGHT GIVEN. ABLE TO TAKE THE [place] WITH WATER REFUSED TO TAKE THE LACTULOSE. GETS NAUSEATED WHEN ANY FOOD TOUCHES PATIENT'S LIPS.
--- NOTE | 2021-08-20 22:00 | NUR ---
ACCIDENTALLY PULLED OUT IV.NEW IV LINE INSERTED BY GARRICK CHEW AT THE LEFT HAND G24.
[2021-08-21] VITALS: BP 119/44
--- NOTE | 2021-08-21 | NUR ---
SLEEPING COMFORTABLY IN BED. RESPIRATION EVEN AND UNLABORED. CALL LIGHT IN REACH.
--- NOTE | 2021-08-21 02:00 | NUR ---
ON BED SUPINE, COMFORTABLY ASLEEP. RESPIRATION EVEN AND UNLABORED. CALL LIGHT IN REACH.
--- NOTE | 2021-08-21 04:00 | NUR ---
AWAKE IN BED, NO RESPIRATORY DISTRESS NOTED. NO COMPLAINT OF PAIN, 0/10
[2021-08-21] MEDS: POTASSIUM CHL 20MEQ/D5-NS 1,000 ML IV SCH ×2 (06:00→12:46)
[2021-08-21] MEDS: ERYTHROMYCIN 200 MG in NACL 0.9% 100 ML IV SCH ×5 (06:35→18:25)
[2021-08-21] MEDS: BLOOD GLUCOSE MONITORING 1 DEV DEV FS SCH ×4 (06:35→21:00)
--- NOTE | 2021-08-21 06:35 | NUR ---
BS - 77, ASYMPTOMATIC. NAUSEATED IF ANYTHING TOUCHES HER MOUTH. GIVEN A SMALL AMOUNT OF JUICE.
[2021-08-21] MEDS: PANTOPRAZOLE 40 MG INJ VIAL IVP SCH ×2 (06:41→16:30)
--- NOTE | 2021-08-21 07:00 | NUR ---
CONDITION REMAIN STABLE. SAFETY MAINTAINED DURING THE SHIFT. WILL ENDORSE TO AM SHIFT NURSE FOR CONTINUITY OF CARE.
[2021-08-21 07:29] LABS: ANION GAP 11.2 (8-16); CARBON DIOXIDE 22.5 mmol/L (21-32); CHLORIDE 116 mmol/L (98-107); CREATININE 1.1 mg/dL (0.6-1.3); GLUCOSE 76 mg/dL (74-106); SODIUM SERUM 147 mmol/L (136-145); UREA NITROGEN, BLOOD 12 mg/dL (7-18)
--- NOTE | 2021-08-21 07:40 | NUR ---
RECEIVED REPORT FROM DISPUTE RESOLUTION SPECIALIST NURSE. PATIENT IN STABLE CONDITION. REVIEWED PLAN OF CARE WITH PATIENT. VERBALIZED UNDERSTANDING. SAFETY MEASURES IN PLACE, CALL LIGHT WITHIN REACH. WILL CONTINUE TO MONITOR.
[2021-08-21 07:48] LABS: POTASSIUM 2.7 mmol/L (3.5-5.1)
[2021-08-21 08:00] VITALS: BP 106/58
[2021-08-21] MEDS: CINACALCET 30 MG TAB PO SCH ×2 (09:00→17:00)
[2021-08-21] MEDS: SENNA 8.6 MG TAB PO SCH ×2 (10:47→22:15)
[2021-08-21] MEDS: FERROUS SULFATE 325 MG TABEC PO SCH (10:47)
[2021-08-21] MEDS: ASPIRIN 325 MG TAB PO SCH (10:47)
[2021-08-21] MEDS: LACTULOSE 20 GM/30 ML UDC PO SCH ×2 (10:47→21:00)
--- NOTE | 2021-08-21 10:53 | NUR ---
SCHEDULED MEDICATIONS DUE GIVEN. WILL CONTINUE TO MONITOR.
[2021-08-21 11:17] LABS: BASOPHILS # (AUTO) 0.1 K/uL (0.00-0.22); BASOPHILS % (AUTO) 1.1 % (0.0-2.0); EOSINOPHILS # (AUTO) 0.5 K/uL (0-0.4); EOSINOPHILS % (AUTO) 5.3 % (0.0-4.0); HEMATOCRIT 26.9 % (36-48); HEMOGLOBIN 8.5 g/dL (12.0-16.0); LYMPHOCYTES # (AUTO) 2.3 K/uL (2.5-16.5); LYMPHOCYTES % (AUTO) 25.1 % (20.5-51.1); MEAN CORPUSCULAR HEMOGLOBIN 27 pg (27-31); MEAN CORPUSCULAR HGB CONC 32 g/dL (33-37); MONOCYTES # (AUTO) 0.6 K/uL (0.8-1.0); NEUTROPHILS # (AUTO) 5.6 K/uL (1.8-7.7); NEUTROPHILS % (AUTO) 61.5 % (42.2-75.2); PLATELET COUNT (AUTO) 550 K/uL (140-450); RED BLOOD CELL COUNT(AUTO) 3.13 MIL/uL (4.20-5.40); RED CELL DISTRIBUTION WIDTH 19.7 % (11.6-13.7)
[2021-08-21] MEDS ORDERED: TPN PER PHARMACY MC PRN (11:50)
--- NOTE | 2021-08-21 12:49 | NUR ---
SCHEDULED MEDICATIONS DUE GIVEN. WILL CONTINUE TO MONITOR.
[2021-08-21] MEDS ORDERED: KCL 20 MEQ/WATER INJ PREMIX 200 ML IV SCH (13:00)
--- NOTE | 2021-08-21 15:07 | NUR ---
PATIENT LYING DOWN IN BED SLEEPING, SCHEDULED MEDICATIONS DUE GIVEN. WILL CONTINUE TO MONITOR.
[2021-08-21 16:00] VITALS: BP 110/59
--- NOTE | 2021-08-21 17:01 | NUR ---
PT. WITH LOW NILAM SCALE AT HI RISK,WILL CONTINUE PRESSURE INJURY PREVENTION INTERVENTIONS -TURN AND REPOSITION PATIENT Q2H, KEEP PT. DRY AND CLEAN -ASSESS AND MONITOR SKIN CONDITION DURING POSITION CHANGE, PLEASE PAY ATTENTION TO HEELS, EARS AND SACRALCOCCYX, OFF LOADING WITH PILLOWS -OFFLOAD BILATERAL HEELS BY PLACING PILLOWS UNDER CALVES AT ALL TIMES, UNLESS OTHERWISE CONTRAINDICATED -PRESSURE REDISTRIBUTION SURFACE THERAPY -PLEASE FOLLOW RD RECOMMENDATIONS
--- NOTE | 2021-08-21 18:26 | NUR ---
SCHEDULED MEDICATIONS DUE GIVEN. WILL CONTINUE TO MONITOR.
--- NOTE | 2021-08-21 19:50 | NUR ---
GAVE REPORT TO SUPERVISOR COOLER SERVICE NURSE FOR CONTINUITY OF CARE. PATIENT IN STABLE CONDITION.
--- NOTE | 2021-08-21 19:51 | NUR ---
RECD. RESTING IN BED, AWAKE, A/OX3. RESPIRATION EVEN AND UNLABORED. 02 SAT - 98% ON ROOM AIR. IV OF D5NS WITH 20 MEQ KCL INFUSING AT 100 ML/HR, LEFT HAND G24. STILL WITH VERY POOR APPETITE, GETS NAUSEATED OCCASIONALLY. MADE AWARE THAT PICC LINE NURSE IS COMING TO PUT A LINE ON HER. SAFETY MEASURES ENFORCED. BED ON ALARM. CALL LIGHT IN REACH. DENIES PAIN 0/10.
--- NOTE | 2021-08-21 21:30 | NUR ---
PICC LINE NURSE ZHENG CAME TO DO PICC LINE ON PATIENT.
--- NOTE | 2021-08-21 22:20 | NUR ---
PICC LINE IS ALREADY OK TO BE USED PER GARRICK CALZADA BASED ON RESULT OF CHEST X-RAY.
[2021-08-22] VITALS: BP 135/68
[2021-08-22] MEDS: ERYTHROMYCIN 200 MG in NACL 0.9% 100 ML IV SCH ×5 (00:34→23:40)
[2021-08-22] MEDS ORDERED: MORPHINE SULFATE 2 MG/ML SYR IVP PRN ×2 (00:50→08:40)
[2021-08-22] MEDS: POTASSIUM CHL 20MEQ/D5-NS 1,000 ML IV SCH ×3 (02:00→21:41)
--- NOTE | 2021-08-22 03:00 | NUR ---
FOLLOW UP WITH TICK ERADICATOR IF CT OF HEAD, ABDOMEN/PELVIS WITH CONTRAST ORDERED ON 08/19/21 CAN BE DONE NOW, PATIENT HAS ALREADY A PICC LINE. WILL CHECK PATIENT LAB RESULTS AND CALL AGAIN.
--- NOTE | 2021-08-22 04:45 | NUR ---
TAKEN TO RADIOLOGY FOR CT SCAN OF HEAD, ABD/PELVIS WITH CONTRAST.
--- NOTE | 2021-08-22 05:05 | NUR ---
PICC LINE CONNECTED TO CONTRAST BY NURSE GROUP MANAGING DIRECTORTATIANNA.
--- NOTE | 2021-08-22 05:15 | NUR ---
TECH NOTED ORDER FOR CT OF ABD/PELVIS ALSO NEED PO CONTRAST ASIDE FROM IV CONTRAST. INQUIRED TO DR. SUMMERS IF JUST IV CONTRAST, STATED GI MD WANTS ALSO PO CONTRAST. INFORM PATIENT CANNOT TOLERATE POs. GIVE PO CONTRAST BY NGT IF PT CANNOT TOLERATE BY MOUTH THE CONTRAST.
--- NOTE | 2021-08-22 05:25 | NUR ---
MADE COMFORTABLE IN BED WITH WARM BLANKETS.
--- NOTE | 2021-08-22 06:30 | NUR ---
BS CHECKED - 70. REFUSED TO DRINK JUICE. INSTRUCTED TO EAT BREAKFAST TO MAINTAIN HER SUGAR LEVEL TO NORMAL. WILL ENDORSE TO AM NURSE FOR CONTINUITY OF CARE.
[2021-08-22] MEDS: BLOOD GLUCOSE MONITORING 1 DEV DEV FS SCH ×2 (07:02→12:12)
[2021-08-22 07:25] LABS: BASOPHILS % (AUTO) 0.5 % (0.0-2.0); EOSINOPHILS # (AUTO) 0.5 K/uL (0-0.4); EOSINOPHILS % (AUTO) 4.7 % (0.0-4.0); HEMATOCRIT 28.9 % (36-48); HEMOGLOBIN 9.2 g/dL (12.0-16.0); LYMPHOCYTES # (AUTO) 2.4 K/uL (2.5-16.5); LYMPHOCYTES % (AUTO) 24.7 % (20.5-51.1); MEAN CORPUSCULAR HEMOGLOBIN 27 pg (27-31); MEAN CORPUSCULAR HGB CONC 32 g/dL (33-37); MEAN CORPUSCULAR VOLUME 85.9 fL (80-94); MONOCYTES # (AUTO) 0.7 K/uL (0.8-1.0); MONOCYTES % (AUTO) 6.9 % (1.7-9.3); NEUTROPHILS # (AUTO) 6.2 K/uL (1.8-7.7); NEUTROPHILS % (AUTO) 63.2 % (42.2-75.2); PLATELET COUNT (AUTO) 547 K/uL (140-450); RED BLOOD CELL COUNT(AUTO) 3.36 MIL/uL (4.20-5.40); RED CELL DISTRIBUTION WIDTH 19.9 % (11.6-13.7); WHITE BLOOD COUNT (AUTO) 9.9 K/uL (4.8-10.8)
[2021-08-22 07:58] LABS: ALBUMIN 1.3 g/dL (3.4-5.0); ANION GAP 11.4 (8-16); ASPARTATE AMINOTRANSFERASE 22 U/L (15-37); CARBON DIOXIDE 22.8 mmol/L (21-32); CHLORIDE 118 mmol/L (98-107); CREATININE 1.1 mg/dL (0.6-1.3); GLUCOSE 84 mg/dL (74-106); PHOSPHORUS 2.9 mg/dL (2.5-4.9); POTASSIUM 3.2 mmol/L (3.5-5.1); SODIUM SERUM 149 mmol/L (136-145); TOTAL BILIRUBIN 0.4 mg/dL (0.0-1.0); TRIGLYCERIDES 74 mg/dL (30-150); UREA NITROGEN, BLOOD 12 mg/dL (7-18)
[2021-08-22 08:00] VITALS: BP 125/57
[2021-08-22 08:08] LABS: MAGNESIUM 0.6 mg/dL (1.8-2.4)
--- NOTE | 2021-08-22 08:11 | NUR ---
RECEIVED PATIENT REPORT FROM CLINICAL LABORATORY DIRECTOR NURSE FOR CONTINUITY OF CARE. PATIENT IN BED AWAKE,AX2. BREATHING EVEN AND UNLABORED WITH NO SOB NOTED. NOT IN DISTRESS. DENIES ANY PAIN, ON ROOM AIR PATIENT HAS RIGHT UPPER ARM PICC, ENDORSED FROM CLINICAL LABORATORY DIRECTOR THAT PATIENT NEED BE INSERT NGT FOR PO CONTRAST , NOTED BILATERAL EDEMA IN BOTH EXTREMITIES ALL SAFETY MEASURES ON PLACE CALLS LIGHT WITHIN REACH
[2021-08-22] MEDS ORDERED: DOCUSATE SODIUM 100 MG GELCAP PO PRN (08:40)
[2021-08-22] MEDS ORDERED: LORazepam 2 MG/ML VIAL IVP PRN (08:40)
[2021-08-22] MEDS: PANTOPRAZOLE 40 MG INJ VIAL IVP SCH ×2 (09:21→17:27)
[2021-08-22] MEDS: CINACALCET 30 MG TAB PO SCH ×2 (09:22→17:27)
[2021-08-22] MEDS: FERROUS SULFATE 325 MG TABEC PO SCH (09:22)
[2021-08-22] MEDS: ASPIRIN 325 MG TAB PO SCH (09:22)
[2021-08-22] MEDS: SENNA 8.6 MG TAB PO SCH ×2 (09:22→21:52)
[2021-08-22] MEDS: LACTULOSE 20 GM/30 ML UDC PO SCH ×2 (09:23→21:51)
[2021-08-22] MEDS: MAG SULF 2000 MG/WATER PREMIX 50 ML IV PRN (09:24)
[2021-08-22] MEDS: POTASSIUM CHLORIDE 10 MEQ TABER PO PRN (09:25)
[2021-08-22 10:08] LABS: HDL CHOLESTEROL 21 mg/dL (40-60); LDL (CALC) 28 mg/dL (60-100)
--- NOTE | 2021-08-22 10:31 | NUR ---
PATIENT IN BED NO COMPLAINS NO SOD NOTED, GOT MORNING MEDICATION ADMINISTRATED TOLERATED WELL ALL SAFETY NEASURES ON PLACE CALLS LIGHT WITHIN REACH
--- NOTE | 2021-08-22 12:11 | NUR ---
08/22/21 RD FOLLOW UP COMPLETED PLEASE REFER TO NUTRITION ASSESSMENT UNDER CARE ACTIVITY FOR ESTIMATED NUTRITIONAL NEEDS. 1. WHEN/IF MEDICALLY APPROPRIATE, START ON TPN PER PHARMACY 2. RECOMMEND SWALLOW EVAL BEFORE ADVANCE TO ANY ORAL DIET 3. RD TO FOLLOW-UP 2-3 DAYS, HIGH RISK TATY PENG, RD
[2021-08-22] MEDS ORDERED: INSULIN LISPRO SLIDING SCALE 100 UNITS/ML VIAL SUBQ PRN (12:20)
--- NOTE | 2021-08-22 12:20 | NUR ---
PATIENT IN BED NO COMLAINS NO SOD NOTED, NGT INSERTED TO GET PO CONTRAST ALL SAFETY NEASURES ON PLACE CALLS LIGHT WITHIN REACH
--- NOTE | 2021-08-22 13:00 | NUR ---
PATIENT IN BED NO COMPLAINS NO SOD NOTED, X RAY WERE DONE TO CHECK TUBE PLACEMENT, TUBE IS IN PLACE, TPN WERE ORDER AND PATIENT WILL START TONIGHT TPN FEEDING ALL SAFETY NATURES ON PLACE CALLS LIGHT WITHIN REACH
--- NOTE | 2021-08-22 15:33 | NUR ---
PATIENT IN BED NO COMPLAINS NO SOD NOTED, ALL SAFETY MEASURES ON PLACE CALLS LIGHT WITHIN REACH
[2021-08-22 16:00] VITALS: BP 120/57
--- NOTE | 2021-08-22 17:30 | NUR ---
PATIENT IN BED NO COMPLAINS, NO SOD NOTED, ALL SAFETY MESSURES ON PLACE CALLS LIGHT WITHIN REACH
[2021-08-22] MEDS: BLOOD GLUCOSE MONITORING 1 DEV DEV MC SCH ×2 (18:41→23:58)
--- NOTE | 2021-08-22 18:55 | NUR ---
PATIENT IN BED NO COMPLAINS, NO SOD NOTED, CALLED CT TO VERIFY IS CT WAS DONE, CT PERSONNEL ON LUNCH BREAK WILL CALL ONCE DONE T INFORM IF THE CT WAS DONE ALL SAFETY MEASURES ON PLACE CALLS LIGHT WITHIN REACH
[2021-08-22 20:00] VITALS: BP 123/61
[2021-08-22] MEDS ORDERED: DEXTROSE 50% IV SCH ×2 (20:00)
[2021-08-22] MEDS ORDERED: AMINO ACIDS 8.5% IV SCH ×2 (20:00)
--- NOTE | 2021-08-22 20:11 | NUR ---
FULL BEDSIDE REPORT GIVEN TO GLUER MACHINE OPERATOR NURSE
--- NOTE | 2021-08-22 20:15 | NUR ---
RECEIVED BEDSIDE REPORT FROM DAY SHIFT RN FOR CONTINUITY OF CARE. PT IS SLEEPING NOT IN ANY DISTRESS. PT IS BED AT THE LOWEST POSITION. HEAD OF BED RAISED. CALL LIGHT WITHIN REACH. WILL CONTINUE TO MONITOR THE PT.
--- NOTE | 2021-08-22 20:30 | NUR ---
PT LEFT FOR CT SCAN VIA GURNEY. PT IS NOT IN ANY DISTRESS AND IS AWARE OF THE PROCEDURE.
--- NOTE | 2021-08-22 20:50 | NUR ---
PT CAME BACK FROM CT SCAN. PT IS NOT IN ANY DISTRESS. WILL CONTINUE TO MONITOR
--- NOTE | 2021-08-23 00:20 | NUR ---
PT IS SLEEPING IN BED. PT IS NOT IN ANY DISTRESS. CHEST RISE AND FALL. BREATHING SYMMETRICAL AND RHYTHMIC. CALL LIGHT WITHIN REACH. ALL SAFETY MEASURES TAKEN. WILL CONTINUE TO MONITOR THE PT.
--- NOTE | 2021-08-23 03:30 | NUR ---
PT IS AWAKE AND WANTED TO DRINK WAS WATER. WATER WAS PROVIDED REQUESTED. PT TOLERATED IT WELL. NO FURTHER COMPLAINS AT THIS TIME. WILL CONTINUE TO MONITOR THE PT.
[2021-08-23] MEDS: ERYTHROMYCIN 200 MG in NACL 0.9% 100 ML IV SCH ×3 (05:43→17:22)
[2021-08-23] MEDS: BLOOD GLUCOSE MONITORING 1 DEV DEV MC SCH ×3 (06:29→17:29)
[2021-08-23] MEDS: PANTOPRAZOLE 40 MG INJ VIAL IVP SCH ×2 (06:34→16:25)
[2021-08-23 07:38] LABS: BASOPHILS # (AUTO) 0.1 K/uL (0.00-0.22); BASOPHILS % (AUTO) 0.6 % (0.0-2.0); EOSINOPHILS # (AUTO) 0.3 K/uL (0-0.4); EOSINOPHILS % (AUTO) 1.8 % (0.0-4.0); HEMATOCRIT 26.5 % (36-48); HEMOGLOBIN 8.5 g/dL (12.0-16.0); LYMPHOCYTES % (AUTO) 12.4 % (20.5-51.1); MEAN CORPUSCULAR HEMOGLOBIN 27 pg (27-31); MEAN CORPUSCULAR HGB CONC 32 g/dL (33-37); MEAN CORPUSCULAR VOLUME 85.5 fL (80-94); MONOCYTES % (AUTO) 6.2 % (1.7-9.3); PLATELET COUNT (AUTO) 466 K/uL (140-450); RED CELL DISTRIBUTION WIDTH 19.9 % (11.6-13.7); WHITE BLOOD COUNT (AUTO) 16.5 K/uL (4.8-10.8)
[2021-08-23 07:39] LABS: ANION GAP 11.9 (8-16); CARBON DIOXIDE 20.2 mmol/L (21-32); CHLORIDE 117 mmol/L (98-107); CREATININE 1.1 mg/dL (0.6-1.3); GLUCOSE 151 mg/dL (74-106); POTASSIUM 3.1 mmol/L (3.5-5.1); SODIUM SERUM 146 mmol/L (136-145); UREA NITROGEN, BLOOD 12 mg/dL (7-18)
--- NOTE | 2021-08-23 07:50 | NUR ---
ENDORSED PT TO DAY SHIFT RN FOR CONTINUITY OF CARE. PT IS STABLE.
[2021-08-23 07:53] LABS: PHOSPHORUS 2.6 mg/dL (2.5-4.9)
[2021-08-23 08:00] VITALS: BP 98/56
--- NOTE | 2021-08-23 08:04 | NUR ---
RECEIVE REPORT FROM DISC PAD PLATE FILLER NURSE, PATIENT IN BED NO SOD NOTED AX2 BREATHING EVEN UNLABORED PATIENT HAS A RIGHT UPPER ARM PICC LINE, RECIEVING TPN ORDERED, NOTED EDEMA BILATERAL UPPER AND LOWER EXTREMITIES . POC DISCUSSED CALLS LIGHT WITHIN REACH ALL SAFETY MEASURES ON PLACE
[2021-08-23 08:35] LABS: MAGNESIUM 0.8 mg/dL (1.8-2.4)
[2021-08-23] MEDS: SENNA 8.6 MG TAB PO SCH ×2 (10:38→21:00)
[2021-08-23] MEDS: ASPIRIN 325 MG TAB PO SCH (10:38)
[2021-08-23] MEDS: FERROUS SULFATE 325 MG TABEC PO SCH (10:38)
[2021-08-23] MEDS: CINACALCET 30 MG TAB PO SCH ×2 (10:38→16:26)
[2021-08-23] MEDS: MAG SULF 2000 MG/WATER PREMIX 50 ML IV PRN (10:39)
[2021-08-23] MEDS: POTASSIUM CHLORIDE 10 MEQ TABER PO PRN (10:39)
[2021-08-23] MEDS: LACTULOSE 20 GM/30 ML UDC PO SCH ×2 (10:40→21:00)
[2021-08-23] MEDS: ONDANSETRON 4 MG/2 ML VIAL IVP PRN (10:42)
--- NOTE | 2021-08-23 10:43 | NUR ---
patient in bed no sod noted complains about nausea got medicated as prn order, patient got morning medication tolerated well, all safety measures on place calls light within reach
--- NOTE | 2021-08-23 12:20 | NUR ---
PATIENT IN BED NO COMPLAINS NO SOD NOTED CALLS LIGHT WITHIN REACH ALL SAFETY MEASURES ON PLACE
[2021-08-23] MEDS: METOCLOPRAMIDE 10 MG/2 ML INJ VIAL IVP SCH ×2 (12:33→21:00)
[2021-08-23] MEDS: ACETAMINOPHEN 325 MG TAB PO PRN (12:34)
[2021-08-23] MEDS: metroNIDAZOLE 500 MG/NS PREMIX 100 ML IV SCH ×2 (13:11→21:00)
--- NOTE | 2021-08-23 14:30 | NUR ---
PATIENT IN BED NO COMPLAINS NO SOD NOTED got cleaned and changed CALLS LIGHT WITHIN REACH ALL SAFETY MEASURES ON PLACE
[2021-08-23 16:00] VITALS: BP 107/52
--- NOTE | 2021-08-23 16:31 | NUR ---
PATIENT IN BED NO COMPLAINS NO SOD NOTED GOT CLEANED AND CHANGED CALLS LIGHT WITHIN REACH ALL SAFETY MEASURES ON PLACE
--- NOTE | 2021-08-23 18:31 | NUR ---
PATIENT IN BED NO COMPLAINS NO SOD NOTED CALLS LIGHT WITHIN REACH ALL SAFETY MEASURES ON PLACE
--- NOTE | 2021-08-23 19:56 | NUR ---
full bedside report given to date night caregiver nurse
--- NOTE | 2021-08-23 19:57 | NUR ---
RECEIVED REPORT FORM MORNING SHIFT NURSE FOR CONTINUITY OF CARE. PATIENT IS STABLE IN BED. A&OX2. SLOVENIAN SPEAKING ONLY. VERBALLY RESPONSIVE AND ABLE TO COMMUNICATE NEEDS. DENIES PAIN AT THIS TIME. BREATHING EVEN AND UNLABORED. ON ROOM AIR WITH NO APPARENT S/SX OF ACUTE DISTRESS. IV SITE TO THE NEGRO PICCLINE INTACT/PATENT WITH TPN INFUSING AT 75ML/HOUR. SKIN IS INTACT. PLAN OF CARE AND WHITE COMMUNICATION BOARD UPDATED. BED IN LOW/LOCKED POSITION. CALL LIGHT WITHIN REACH. WILL CONTINUE TO MONITOR.
[2021-08-23 20:00] VITALS: BP 113/61
[2021-08-23] MEDS ORDERED: AMINO ACIDS 8.5% IV SCH ×3 (20:00)
[2021-08-23] MEDS ORDERED: DEXTROSE 50% IV SCH ×3 (20:00)
[2021-08-23] MEDS ORDERED: FAT EMULSION 20% IV SCH ×3 (20:00)
--- NOTE | 2021-08-23 20:00 | NUR ---
Patient's Plan of Care was discussed and reviewed with PARKING PATROLLER: CELY BROWN
--- NOTE | 2021-08-23 21:55 | NUR ---
ADMINISTERED SCHEDULED MEDICATIONS PER MD ORDER. TOLERATED WELL. NO ADVERSE REACTION NOTED. PATIENT DENIES PAIN. RESPIRATIONS EVEN AND UNLABORED WITH NO APPARENT S/SX OF ACUTE DISTRESS. WHITE COMMUNICATION BOARD UPDATED. ALL SAFETY MEASURES IN PLACE. CALL LIGHT WITHIN REACH. ALL SAFETY MEASURES IN PLACE. CALL LIGHT WITHIN REACH.
--- NOTE | 2021-08-23 23:55 | NUR ---
CHECKED PATIENT'S BLOOD SUGAR AND NO COVERAGE NEEDED PER MD ORDER. TOLERATED WELL. NO ADVERSE REACTION NOTED. DENIES PAIN. RESPIRATIONS EVEN AND UNLABORED WITH NO APPARENT S/SX OF ACUTE DISTRESS. WHITE COMMUNICATION BOARD UPDATED. ALL SAFETY MEASURES IN PLACE. CALL LIGHT WITHIN REACH. WILL CONTINUE TO MONITOR.
[2021-08-24] MEDS: BLOOD GLUCOSE MONITORING 1 DEV DEV MC SCH ×5 (00:34→23:30)
[2021-08-24] MEDS: ERYTHROMYCIN 200 MG in NACL 0.9% 100 ML IV SCH (00:42)
--- NOTE | 2021-08-24 03:55 | NUR ---
ROUNDED ON PATIENT. STABLE AND ASLEEP WITH HOB ELEVATED AT 30 DEGREES. CHEST IS RISING AND FALLING. RESPIRATIONS EVEN AND UNLABORED WITH NO APPARENT S/SX OF ACUTE DISTRESS. WHITE COMMUNICATION BOARD UPDATED. ALL SAFETY MEASURES IN PLACE. CALL LIGHT WITHIN REACH. WILL CONTINUE TO MONITOR.
[2021-08-24] MEDS: METOCLOPRAMIDE 10 MG/2 ML INJ VIAL IVP SCH ×3 (05:20→22:09)
[2021-08-24] MEDS: metroNIDAZOLE 500 MG/NS PREMIX 100 ML IV SCH ×3 (05:20→22:10)
--- NOTE | 2021-08-24 05:55 | NUR ---
CHECKED PATIENT'S BLOOD SUGAR AND NO COVERAGE NEEDED PER MD ORDER. DENIES PAIN. RESPIRATIONS EVEN AND UNLABORED WITH NO APPARENT S/SX OF ACUTE DISTRESS. WHITE COMMUNICATION BOARD UPDATED. ALL SAFETY MEASURES IN PLACE. CALL LIGHT WITHIN REACH. WILL CONTINUE TO MONITOR.
[2021-08-24] MEDS: PANTOPRAZOLE 40 MG INJ VIAL IVP SCH ×2 (07:03→16:32)
--- NOTE | 2021-08-24 07:20 | NUR ---
ENDORSED PATIENT TO MORNING SHIFT NURSE FOR CONTINUITY OF CARE. PATIENT IS STABLE.
--- NOTE | 2021-08-24 07:21 | NUR ---
RECEIVED ENDORSEMENT FROM LUNCHROOM MONITOR NURSE FOR CONTINUITY OF CARE.
[2021-08-24 08:00] VITALS: BP 167/53
[2021-08-24 08:01] LABS: BASOPHILS # (AUTO) 0.1 K/uL (0.00-0.22); BASOPHILS % (AUTO) 0.4 % (0.0-2.0); EOSINOPHILS # (AUTO) 0.7 K/uL (0-0.4); EOSINOPHILS % (AUTO) 4.8 % (0.0-4.0); HEMATOCRIT 24.4 % (36-48); HEMOGLOBIN 7.9 g/dL (12.0-16.0); LYMPHOCYTES # (AUTO) 2.4 K/uL (2.5-16.5); LYMPHOCYTES % (AUTO) 15.5 % (20.5-51.1); MEAN CORPUSCULAR HEMOGLOBIN 27 pg (27-31); MEAN CORPUSCULAR HGB CONC 32 g/dL (33-37); MEAN CORPUSCULAR VOLUME 84.6 fL (80-94); MONOCYTES % (AUTO) 6.7 % (1.7-9.3); NEUTROPHILS # (AUTO) 11.1 K/uL (1.8-7.7); NEUTROPHILS % (AUTO) 72.6 % (42.2-75.2); PLATELET COUNT (AUTO) 471 K/uL (140-450); RED BLOOD CELL COUNT(AUTO) 2.88 MIL/uL (4.20-5.40); RED CELL DISTRIBUTION WIDTH 19.7 % (11.6-13.7); WHITE BLOOD COUNT (AUTO) 15.2 K/uL (4.8-10.8)
[2021-08-24 08:18] LABS: ANION GAP 11.5 (8-16); CARBON DIOXIDE 19.8 mmol/L (21-32); CHLORIDE 114 mmol/L (98-107); GLUCOSE 144 mg/dL (74-106); POTASSIUM 3.3 mmol/L (3.5-5.1); SODIUM SERUM 142 mmol/L (136-145); UREA NITROGEN, BLOOD 13 mg/dL (7-18)
[2021-08-24] MEDS: ONDANSETRON 4 MG/2 ML VIAL IVP PRN (08:19)
--- NOTE | 2021-08-24 08:19 | NUR ---
PT COMPLAIN OF NAUSEA RN GAVE ZOFRAN.
[2021-08-24 08:20] LABS: MAGNESIUM 1.2 mg/dL (1.8-2.4); PHOSPHORUS 2.3 mg/dL (2.5-4.9)
[2021-08-24] MEDS: ASPIRIN 325 MG TAB PO SCH (10:19)
[2021-08-24] MEDS: SENNA 8.6 MG TAB PO SCH ×2 (10:19→21:25)
[2021-08-24] MEDS: CINACALCET 30 MG TAB PO SCH ×2 (10:19→16:32)
[2021-08-24] MEDS: LACTULOSE 20 GM/30 ML UDC PO SCH ×2 (10:20→21:25)
[2021-08-24] MEDS: FERROUS SULFATE 325 MG TABEC PO SCH (10:20)
--- NOTE | 2021-08-24 11:48 | NUR ---
BLOOD SUGAR CHECK NO COVERAGE FOR 116 BLOOD SUGAR. PT ON STABLE CONDITION AT BED SIDE.
--- NOTE | 2021-08-24 14:00 | NUR ---
PT ON BED ASLEEP WITH AT BED SIDE. TPN RUNNING TOLERATED WELL.
[2021-08-24 16:00] VITALS: BP 129/58
--- NOTE | 2021-08-24 16:45 | NUR ---
RN GAVE PROTONIX ORDERED.
--- NOTE | 2021-08-24 19:25 | NUR ---
ENDORSE TO SENIOR POLICY ADVISOR NURSE FOR CONTINUITY OF CARE.
--- NOTE | 2021-08-24 19:26 | NUR ---
RECEIVED REPORT FORM MORNING SHIFT NURSE FOR CONTINUITY OF CARE. PATIENT IS STABLE IN BED. A&OX2. CZECH SPEAKING ONLY. VERBALLY RESPONSIVE AND ABLE TO COMMUNICATE NEEDS. DENIES PAIN AT THIS TIME. BREATHING EVEN AND UNLABORED. ON ROOM AIR WITH NO APPARENT S/SX OF ACUTE DISTRESS. IV SITE TO THE NEGRO PICCLINE INTACT/PATENT WITH TPN INFUSING AT 75ML/HOUR. SKIN IS INTACT. PLAN OF CARE AND WHITE COMMUNICATION BOARD UPDATED. BED IN LOW/LOCKED POSITION. CALL LIGHT WITHIN REACH. WILL CONTINUE TO MONITOR.
--- NOTE | 2021-08-24 19:35 | NUR ---
Patient's Plan of Care was discussed and reviewed with REE: CELY
[2021-08-24 20:00] VITALS: BP 105/65
[2021-08-24] MEDS ORDERED: AMINO ACIDS 8.5% IV SCH ×2 (20:00)
[2021-08-24] MEDS ORDERED: DEXTROSE 50% IV SCH ×2 (20:00)
[2021-08-24] MEDS: ZOLPIDEM 10 MG TAB PO PRN (21:25)
--- NOTE | 2021-08-25 01:25 | NUR ---
PATIENT AWOKE WITH CONFUSION. RE-ORIENTED PATIENT TO HOSPITAL ENVIRONMENT. PATIENT DENIES PAIN. RESPIRATIONS EVEN AND UNLABORED WITH NO APPARENT S/SX OF ACUTE DISTRESS. WHITE COMMUNICATION BOARD UPDATED. ALL SAFETY MEASURES IN PLACE. CALL LIGHT WITHIN REACH. WILL CONTINUE TO MONITOR.
--- NOTE | 2021-08-25 05:25 | NUR ---
CLEANED AND CHANGED PATIENT. TOLERATED WELL. DENIES PAIN. RESPIRATIONS EVEN AND UNLABORED WITH NO APPARENT S/SX OF ACUTE DISTRESS. WHITE COMMUNICATION BOARD UPDATED. ALL SAFETY MEASURES IN PLACE. CALL LIGHT WITHIN REACH. WILL CONTINUE TO MONITOR.
[2021-08-25] MEDS: METOCLOPRAMIDE 10 MG/2 ML INJ VIAL IVP SCH ×3 (05:46→23:34)
[2021-08-25] MEDS: metroNIDAZOLE 500 MG/NS PREMIX 100 ML IV SCH ×3 (05:46→23:34)
[2021-08-25] MEDS: BLOOD GLUCOSE MONITORING 1 DEV DEV MC SCH ×3 (06:19→18:29)
[2021-08-25] MEDS: PANTOPRAZOLE 40 MG INJ VIAL IVP SCH ×2 (06:47→17:36)
--- NOTE | 2021-08-25 07:35 | NUR ---
ENDORSED PATIENT TO MORNING SHIFT NURSE FOR CONTINUITY OF CARE. PATIENT IS STABLE.
--- NOTE | 2021-08-25 07:40 | NUR ---
RECEIVED REPORT FROM CREDIT REPORT CHECKER NURSE FOR CONTINUITY OF CARE. PATIENT IS STABLE IN BED. A&OX2. MALTESE SPEAKING ONLY. VERBALLY RESPONSIVE AND ABLE TO COMMUNICATE NEEDS. DENIES PAIN AT THIS TIME. BREATHING EVEN AND UNLABORED. ON ROOM AIR WITH NO APPARENT S/SX OF ACUTE DISTRESS. IV SITE TO THE NEGRO PICC LINE INTACT/PATENT. WITH TPN INFUSING WELL. SKIN IS INTACT. PLAN OF CARE AND WHITE COMMUNICATION BOARD UPDATED. BED IN LOW/LOCKED POSITION. CALL LIGHT WITHIN REACH. WILL CONTINUE TO MONITOR.
[2021-08-25 08:00] VITALS: BP 124/49
[2021-08-25] MEDS: CINACALCET 30 MG TAB PO SCH ×2 (09:41→17:36)
[2021-08-25] MEDS: ASPIRIN 325 MG TAB PO SCH (09:41)
[2021-08-25] MEDS: LACTULOSE 20 GM/30 ML UDC PO SCH ×2 (09:41→21:40)
[2021-08-25] MEDS: FERROUS SULFATE 325 MG TABEC PO SCH (09:41)
[2021-08-25] MEDS: SENNA 8.6 MG TAB PO SCH ×2 (09:41→21:40)
--- NOTE | 2021-08-25 09:55 | NUR ---
ALL SCHEDULED MEDS GIVEN. PT IS STABLE. NO DISTRESS NOTED. WILL CONTINUE TO MONITOR.
[2021-08-25 10:48] LABS: BASOPHILS # (AUTO) 0.1 K/uL (0.00-0.22); BASOPHILS % (AUTO) 0.5 % (0.0-2.0); EOSINOPHILS # (AUTO) 0.7 K/uL (0-0.4); HEMATOCRIT 24.3 % (36-48); HEMOGLOBIN 7.9 g/dL (12.0-16.0); LYMPHOCYTES # (AUTO) 3.1 K/uL (2.5-16.5); LYMPHOCYTES % (AUTO) 25.6 % (20.5-51.1); MEAN CORPUSCULAR HEMOGLOBIN 27 pg (27-31); MEAN CORPUSCULAR HGB CONC 33 g/dL (33-37); MEAN CORPUSCULAR VOLUME 83.5 fL (80-94); MONOCYTES % (AUTO) 8.4 % (1.7-9.3); NEUTROPHILS # (AUTO) 7.3 K/uL (1.8-7.7); NEUTROPHILS % (AUTO) 59.5 % (42.2-75.2); PLATELET COUNT (AUTO) 491 K/uL (140-450); RED BLOOD CELL COUNT(AUTO) 2.91 MIL/uL (4.20-5.40); RED CELL DISTRIBUTION WIDTH 19.3 % (11.6-13.7); WHITE BLOOD COUNT (AUTO) 12.2 K/uL (4.8-10.8)
[2021-08-25 11:00] LABS: ANION GAP 11.9 (8-16); CARBON DIOXIDE 21.3 mmol/L (21-32); CHLORIDE 109 mmol/L (98-107); CREATININE 0.8 mg/dL (0.6-1.3); GLUCOSE 93 mg/dL (74-106); POTASSIUM 3.2 mmol/L (3.5-5.1); SODIUM SERUM 139 mmol/L (136-145); UREA NITROGEN, BLOOD 13 mg/dL (7-18)
[2021-08-25 11:03] LABS: PHOSPHORUS 2.7 mg/dL (2.5-4.9)
--- NOTE | 2021-08-25 11:15 | NUR ---
CHECKED ON PATIENT. PT IS STABLE. NO DISTRESS NOTED. WILL CONTINUE TO MONITOR.
--- NOTE | 2021-08-25 13:29 | NUR ---
BLOOD GLUCOSE CHECK WAS 91. NO INSULIN COVERAGE NEEDED.
[2021-08-25] MEDS: MAG SULF 2000 MG/WATER PREMIX 50 ML IV PRN (14:36)
[2021-08-25] MEDS: POTASSIUM CHLORIDE 20% 40 MEQ/15 ML UDC PO PRN (14:37)
[2021-08-25] MEDS ORDERED: MAG SULF 2000 MG/WATER PREMIX 50 ML IV ONE (15:45)
--- NOTE | 2021-08-25 15:45 | NUR ---
CHECKED ON PATIENT. PT IS STABLE. NO DISTRESS NOTED. WILL CONTINUE TO MONITOR.
[2021-08-25 16:00] VITALS: BP 107/56
--- NOTE | 2021-08-25 16:10 | NUR ---
08/25/21 RD FOLLOW UP COMPLETED. PLEASE REFER TO NUTRITION ASSESSMENT UNDER CARE ACTIVITY FOR ESTIMATED NUTRITIONAL NEEDS. CONTINUE CURRENT TPN PLUS CLEAR LIQUID DIET ADVANCE DIET TOLERATED SYMPTOMS IMPROVE RD TO FOLLOW-UP 2-3 DAYS, HIGH RISK DECLAN VALENZUELA, CAROLINE
--- NOTE | 2021-08-25 18:29 | NUR ---
BLOOD GLUCOSE CHECK WAS 99. NO INSULIN COVERAGE NEEDED.
--- NOTE | 2021-08-25 19:13 | NUR ---
ENDORSED TO ONCOLOGY SOCIAL WORKER NURSE FOR CONTINUITY OF CARE. PT IS STABLE.
--- NOTE | 2021-08-25 19:15 | NUR ---
RECEIVED REPORT FROM MORNING SHIFT NURSE FOR CONTINUITY OF CARE. PATIENT IS STABLE IN BED. A&OX2. LAO SPEAKING ONLY. VERBALLY RESPONSIVE AND ABLE TO COMMUNICATE NEEDS. DENIES PAIN AT THIS TIME. BREATHING EVEN AND UNLABORED. ON ROOM AIR WITH NO APPARENT S/SX OF ACUTE DISTRESS. IV SITE TO THE NEGRO PICCLINE INTACT/PATENT WITH TPN INFUSING AT 100ML/HOUR. SKIN IS INTACT. PLAN OF CARE AND WHITE COMMUNICATION BOARD UPDATED. BED IN LOW/LOCKED POSITION. CALL LIGHT WITHIN REACH. WILL CONTINUE TO MONITOR.
[2021-08-25 20:00] VITALS: BP 110/61
[2021-08-25] MEDS: DEXTROSE 50% IV SCH ×2 (20:00)
[2021-08-25] MEDS: AMINO ACIDS 8.5% IV SCH ×2 (20:00)
--- NOTE | 2021-08-25 20:00 | NUR ---
REVIEWED PLAN OF CARE WITH STEPHANIE KEENAN AND WILL CONTINUE WITH PLAN OF CARE.
--- NOTE | 2021-08-25 21:20 | NUR ---
ADMINISTERED SCHEDULED MEDICATIONS PER MD ORDER. TOLERATED WELL. NO ADVERSE REACTION NOTED. DENIES PAIN. RESPIRATIONS EVEN AND UNLABORED WITH NO APPARENT S/SX OF ACUTE DISTRESS. PROVIDED SNACKS. WHITE COMMUNICATION BOARD UPDATED. ALL SAFETY MEASURES IN PLACE. CALL LIGHT WITHIN REACH. ALL SAFETY MEASURES IN PLACE. WILL CONTINUE TO MONITOR.
[2021-08-25] MEDS: ZOLPIDEM 10 MG TAB PO PRN (21:40)
--- NOTE | 2021-08-25 23:20 | NUR ---
CLEANED AND CHANGED PATIENT. TOLERATED WELL. CHECKED PATIENT'S BLOOD SUGAR AND NO COVERAGE NEEDED PER MD ORDER. DENIES PAIN. RESPIRATIONS EVEN AND UNLABORED WITH NO APPARENT S/SX OF ACUTE DISTRESS. WHITE COMMUNICATION BOARD UPDATED. ALL SAFETY MEASURES IN PLACE. CALL LIGHT WITHIN REACH. WILL CONTINUE TO MONITOR.
[2021-08-26] MEDS: BLOOD GLUCOSE MONITORING 1 DEV DEV MC SCH ×4 (00:14→18:57)
--- NOTE | 2021-08-26 01:20 | NUR ---
CHECKED PATIENT. STABLE AND ASLEEP. CHEST IS RISING AND FALLING. RESPIRATIONS EVEN AND UNLABORED WITH NO APPARENT S/SX OF ACUTE DISTRESS. WHITE COMMUNICATION BOARD UPDATED. ALL SAFETY MEASURES IN PLACE. CALL LIGHT WITHIN REACH. WILL CONTINUE TO MONITOR.
--- NOTE | 2021-08-26 03:20 | NUR ---
ROUNDED ON PATIENT. STABLE AND ASLEEP. CHEST IS RISING AND FALLING. RESPIRATIONS EVEN AND UNLABORED WITH NO APPARENT S/SX OF ACUTE DISTRESS. WHITE COMMUNICATION BOARD UPDATED. ALL SAFETY MEASURES IN PLACE. CALL LIGHT WITHIN REACH. WILL CONTINUE TO MONITOR.
[2021-08-26] MEDS: metroNIDAZOLE 500 MG/NS PREMIX 100 ML IV SCH ×3 (05:00→21:51)
[2021-08-26] MEDS: METOCLOPRAMIDE 10 MG/2 ML INJ VIAL IVP SCH ×3 (05:00→21:51)
--- NOTE | 2021-08-26 05:20 | NUR ---
CLEANED AND CHANGED PATIENT. CHECKED BLOOD SUGAR AND NO COVERAGE NEEDED PER MD ORDER. DENIES PAIN. RESPIRATIONS EVEN AND UNLABORED WITH NO APPARENT S/SX OF ACUTE DISTRESS. WHITE COMMUNICATION BOARD UPDATED. ALL SAFETY MEASURES IN PLACE. CALL LIGHT WITHIN REACH. WILL CONTINUE TO MONITOR.
[2021-08-26] MEDS: PANTOPRAZOLE 40 MG INJ VIAL IVP SCH ×2 (06:20→16:43)
--- NOTE | 2021-08-26 07:20 | NUR ---
ENDORSED PATIENT TO MORNING SHIFT NURSE FOR CONTINUITY OF CARE. PATIENT IS STABLE.
[2021-08-26 08:00] VITALS: BP 125/52
[2021-08-26 08:10] LABS: ALBUMIN 1.2 g/dL (3.4-5.0); ANION GAP 14.2 (8-16); ASPARTATE AMINOTRANSFERASE 17 U/L (15-37); CARBON DIOXIDE 19.4 mmol/L (21-32); CHLORIDE 109 mmol/L (98-107); CREATININE 0.9 mg/dL (0.6-1.3); GLUCOSE 123 mg/dL (74-106); POTASSIUM 3.6 mmol/L (3.5-5.1); SODIUM SERUM 139 mmol/L (136-145); TOTAL BILIRUBIN 0.2 mg/dL (0.0-1.0); UREA NITROGEN, BLOOD 11 mg/dL (7-18)
[2021-08-26 08:28] LABS: MAGNESIUM 1.3 mg/dL (1.8-2.4); PHOSPHORUS 3.1 mg/dL (2.5-4.9)
[2021-08-26] MEDS: CINACALCET 30 MG TAB PO SCH ×2 (08:40→16:43)
[2021-08-26] MEDS: ASPIRIN 325 MG TAB PO SCH (08:40)
[2021-08-26] MEDS: SENNA 8.6 MG TAB PO SCH ×2 (08:40→21:50)
[2021-08-26] MEDS: FERROUS SULFATE 325 MG TABEC PO SCH (08:41)
[2021-08-26] MEDS: LACTULOSE 20 GM/30 ML UDC PO SCH ×2 (08:41→21:50)
--- NOTE | 2021-08-26 08:44 | NUR ---
MEDICATIONS GIVEN PER MD ORDER, PT EDUCATED AND VERBALIZED UNDERSTANDING , ALL SAFETY MEASURES ARE IN PLACE.
--- NOTE | 2021-08-26 09:20 | NUR ---
PATIENT MEDICATIONS GIVEN PER MD ORDER, PT EDUCATED D, KERMIT VERBALIZED UNDERSTANDING ,
--- NOTE | 2021-08-26 09:25 | NUR ---
PATIENT HAD ONE EPISODE OF EMESIS , PT CLEANED AND REPOSITIONED. ALL SAFETY MEASURES IN PLACE. PT OFFERED MOUTH WASH
--- NOTE | 2021-08-26 11:22 | NUR ---
TPN FEEDINGS CHANGED, TUBING CHANGED , PATIENT EDUCATED AND VERBALIZED UNDERSTANDING ALL SAFETY MEASURES ARE IN PLACE.
[2021-08-26] MEDS ORDERED: MEGESTROL 400 MG/10 ML UDC GT SCH (11:30)
[2021-08-26] MEDS ORDERED: METO-485 PO (11:35)
[2021-08-26] MEDS ORDERED: MEGE40SU3 PO (11:35)
[2021-08-26] MEDS ORDERED: TPN (11:36)
--- NOTE | 2021-08-26 13:13 | NUR ---
MEDICATIONS GIVEN PER MD ORDER, PT EDUCATED AND VERBALIZED UNDERSTANDING ALL SAFETY MEASURES ARE IN PLACE
--- NOTE | 2021-08-26 16:34 | NUR ---
PATIENT HAD ANOTHER EPISODE OF EMESIS , ALL SAFETY MEASURES ARE,IN PLACE.
[2021-08-26] MEDS: ONDANSETRON 4 MG/2 ML VIAL IVP PRN (16:43)
--- NOTE | 2021-08-26 16:55 | NUR ---
MEDICATIONS GIVEN PER MD ORDER. PT EDUCATED AND VERBALIZED UNDERSTANDING AT BEDSIDE ALL SAFETY MEASURES ARE IN PLACE.
[2021-08-26 18:00] VITALS: BP 112/42
--- NOTE | 2021-08-26 18:09 | NUR ---
PATIENT CHANGED ONE LARGE GREEN BM LIQUID AT THIS TIME .PT TOLERATED WELL , PT ABLE TO TURN . ALLSAFETY MEASURES ARE IN PLACE.
--- NOTE | 2021-08-26 19:19 | NUR ---
PATIENT ENDORSED TO FUNERAL PREARRANGEMENT COUNSELOR NURSE FOR CONTINUITY OF CARE, PT RESTING IN BED , NO ACUTE DISTRESS NOTED , BREATHING IS SYMMETRICAL AND UNLABORED. PATIENT REPOSITIONED AND KEPT DRY THROUGH OUT THE SHIFT. PT HAVING DINNER TOLERATING WELL.
[2021-08-26] MEDS: DEXTROSE 50% IV SCH ×2 (20:00)
[2021-08-26] MEDS ORDERED: FAT EMULSION 20% IV SCH ×3 (20:00)
[2021-08-26] MEDS ORDERED: DEXTROSE 50% IV SCH ×3 (20:00)
[2021-08-26] MEDS ORDERED: AMINO ACIDS 8.5% IV SCH ×3 (20:00)
[2021-08-26] MEDS: AMINO ACIDS 8.5% IV SCH ×2 (20:00)
[2021-08-27 01:40] VITALS: BP 119/65
[2021-08-27] MEDS: METOCLOPRAMIDE 10 MG/2 ML INJ VIAL IVP SCH (05:00)
[2021-08-27] MEDS: metroNIDAZOLE 500 MG/NS PREMIX 100 ML IV SCH ×3 (05:00→20:54)
[2021-08-27] MEDS: BLOOD GLUCOSE MONITORING 1 DEV DEV MC SCH ×5 (06:23→20:55)
[2021-08-27] MEDS: PANTOPRAZOLE 40 MG INJ VIAL IVP SCH ×2 (06:24→17:12)
[2021-08-27 07:18] LABS: MAGNESIUM 1.3 mg/dL (1.8-2.4)
--- NOTE | 2021-08-27 07:30 | NUR ---
RECEIVED ENDORSEMENT FROM DYNAMICS AX CONSULTANT NURSE FOR CONTINUITY OF CARE, POC DISCUSSED. PT HAS RIGHT UPPER PICC LINE RUNNING TPN. PT IS ASLEEP ON ROOM AIR WITH CHEST RISING AND FALLING EVEN AND UNLABORED. ALL SAFETY MEASURES IN PLACE, CALL LIGHT WITHIN REACH. WILL CONTINUE TO MONITOR.
[2021-08-27 07:44] LABS: ANION GAP 11.9 (8-16); CARBON DIOXIDE 20.7 mmol/L (21-32); CHLORIDE 107 mmol/L (98-107); CREATININE 0.8 mg/dL (0.6-1.3); GLUCOSE 124 mg/dL (74-106); POTASSIUM 3.6 mmol/L (3.5-5.1); SODIUM SERUM 136 mmol/L (136-145); UREA NITROGEN, BLOOD 10 mg/dL (7-18)
[2021-08-27 07:45] LABS: ALBUMIN 1.2 g/dL (3.4-5.0); ASPARTATE AMINOTRANSFERASE 14 U/L (15-37); TOTAL BILIRUBIN 0.2 mg/dL (0.0-1.0)
[2021-08-27 08:00] VITALS: BP 122/61
--- NOTE | 2021-08-27 08:00 | NUR ---
PER PHARMACY, HANG THE NEW BAG OF TPN THAT IS IN THE FRIDGE NOW AND ENDORSE TO TAKER OFF NURSE THAT THE NEW TPN BAG HAS TO BE HUNG AT 1999 NO MATTER HOW FULL THE TPN BAG IS DUE TO PHARMACY POLICY AND WHEN THEY MAKE THE BAGS. NEW BAG IS HUNG AND RUNNING, WILL ENDORSE TO TAKER OFF THAT THE NEXT BAG WILL HAVE TO BE HUNG AT 1999.
[2021-08-27] MEDS: LACTULOSE 20 GM/30 ML UDC PO SCH ×2 (09:33→20:53)
[2021-08-27] MEDS: ASPIRIN 325 MG TAB PO SCH (09:34)
[2021-08-27] MEDS: SENNA 8.6 MG TAB PO SCH ×2 (09:34→20:55)
[2021-08-27] MEDS: CINACALCET 30 MG TAB PO SCH ×2 (09:34→17:12)
[2021-08-27] MEDS: FERROUS SULFATE 325 MG TABEC PO SCH (09:34)
--- NOTE | 2021-08-27 09:45 | NUR ---
CALEB MEDICATION ADMINISTERED PER MD ORDER, PT REPORTED NAUSEA, PRN ANTIEMETIC MEDICATION ADMINISTERED PER MD ORDER. PT EDUCATION PROVIDED, REINFORCEMENT NEEDED, PT TOLERATED ADMINISTRATION. ALL SAFETY MEASURE IN PLACE, CALL LIGHT WITHIN REACH. WILL CONTINUE TO MONITOR.
--- NOTE | 2021-08-27 12:00 | NUR ---
CALEB MEDICATION ADMINISTERED PER MD ORDER, PT TOLERATED ADMINISTRATION. PT BLOOD GLUCOSE IS 114, NO INSULIN NEEDED PER SLIDING SCALE.
--- NOTE | 2021-08-27 14:09 | NUR ---
08/27/21 RD FOLLOW UP COMPLETED PLEASE REFER TO NUTRITION ASSESSMENT UNDER CARE ACTIVITY FOR ESTIMATED NUTRITIONAL NEEDS. 1. CONTINUE TPN PER PHARMACY AND CLEAR LIQUID DIET TOLERATED 2. WHEN/IF MEDICALLY APPROPRIATE, ADVANCE TO FULL LIQUID DIET -RECOMMEND ORAL SUPPLEMENTS TO PROVIDE ENERGY 3. MONITOR PO INTAKE 4. RD TO FOLLOW-UP 2-3 DAYS, HIGH RISK TATY PENG RD
[2021-08-27] MEDS: MAG SULF 2000 MG/WATER PREMIX 50 ML IV PRN (14:15)
--- NOTE | 2021-08-27 14:21 | NUR ---
PRN MAG ADMINISTERED FOR MAGNESIUM OF 1.3. PT IS ASLEEP IN BED IN STABLE CONDITION. ALL SAFETY MEASURES IN PLACE. CALL LIGHT WITHIN REACH. WILL CONTINUE TO MONITOR.
[2021-08-27 15:35] LABS: BASOPHILS # (AUTO) 0.1 K/uL (0.00-0.22); BASOPHILS % (AUTO) 0.6 % (0.0-2.0); EOSINOPHILS # (AUTO) 0.6 K/uL (0-0.4); EOSINOPHILS % (AUTO) 5.3 % (0.0-4.0); HEMATOCRIT 23.7 % (36-48); HEMOGLOBIN 7.9 g/dL (12.0-16.0); LYMPHOCYTES # (AUTO) 2.9 K/uL (2.5-16.5); LYMPHOCYTES % (AUTO) 27.9 % (20.5-51.1); MEAN CORPUSCULAR HEMOGLOBIN 28 pg (27-31); MEAN CORPUSCULAR HGB CONC 33 g/dL (33-37); MEAN CORPUSCULAR VOLUME 84.3 fL (80-94); MONOCYTES # (AUTO) 0.9 K/uL (0.8-1.0); NEUTROPHILS % (AUTO) 57.2 % (42.2-75.2); PLATELET COUNT (AUTO) 489 K/uL (140-450); RED BLOOD CELL COUNT(AUTO) 2.81 MIL/uL (4.20-5.40); RED CELL DISTRIBUTION WIDTH 19.1 % (11.6-13.7); WHITE BLOOD COUNT (AUTO) 10.5 K/uL (4.8-10.8)
[2021-08-27 16:00] VITALS: BP 105/69
--- NOTE | 2021-08-27 16:44 | NUR ---
PT CLEANED AND REPOSITIONED.
--- NOTE | 2021-08-27 17:57 | NUR ---
BLOOD GLUCOSE IS 95, NO INSULIN NEEDED PER SLIDING SCALE. CALEB MEDICATION ADMINISTERED PER MD ORDER. PT IS STABLE IN BED. ALL SAFETY MEASURES IN PLACE, CALL LIGHT WITHIN REACH. WILL CONTINUE TO MONITOR.
--- NOTE | 2021-08-27 18:29 | NUR ---
ALL NEEDS HAVE BEEN MET THROUGHOUT THE SHIFT, PT REMAINED STABLE. CONTINUITY OF CARE WILL BE ENDORSED TO INDUSTRIAL COMMERCIAL GROUNDSKEEPER NURSE. WILL REENFORCE THE IMPORTANCE OF STARTING A NEW BAG OF TPN AT 1999.
[2021-08-27] MEDS: DEXTROSE 50% IV SCH ×3 (20:52)
[2021-08-27] MEDS: AMINO ACIDS 8.5% IV SCH ×3 (20:52)
[2021-08-27] MEDS: FAT EMULSION 20% IV SCH ×3 (20:52)
[2021-08-28] MEDS ORDERED: LEVOFLOXACIN 750 MG/D5W PREMIX 150 ML IV SCH (02:30)
[2021-08-28 02:55] VITALS: BP 116/72
[2021-08-28] MEDS: metroNIDAZOLE 500 MG/NS PREMIX 100 ML IV SCH ×3 (05:00→22:31)
[2021-08-28] MEDS: BLOOD GLUCOSE MONITORING 1 DEV DEV MC SCH ×3 (06:31→17:43)
[2021-08-28] MEDS: PANTOPRAZOLE 40 MG INJ VIAL IVP SCH ×2 (06:31→17:42)
--- NOTE | 2021-08-28 07:31 | NUR ---
HANDOFF REPORT RECEIVED FROM PM SHIFT GARRICK GREEN.FOR CONTINUITY OF CARE. PT. STABLE. BREATHINGS EVEN AND UNLABORED. ALL SAFETY MEASURES IN PLACED. WILL CONTINUITY OF CARE.
[2021-08-28 07:58] LABS: ANION GAP 11.7 (8-16); CARBON DIOXIDE 20.9 mmol/L (21-32); CHLORIDE 108 mmol/L (98-107); CREATININE 0.7 mg/dL (0.6-1.3); GLUCOSE 108 mg/dL (74-106); POTASSIUM 3.6 mmol/L (3.5-5.1); SODIUM SERUM 137 mmol/L (136-145); UREA NITROGEN, BLOOD 9 mg/dL (7-18)
[2021-08-28 08:00] VITALS: BP 96/42
[2021-08-28 08:00] LABS: MAGNESIUM 1.6 mg/dL (1.8-2.4); PHOSPHORUS 3.4 mg/dL (2.5-4.9)
[2021-08-28] MEDS: LACTULOSE 20 GM/30 ML UDC PO SCH ×2 (09:21→20:34)
[2021-08-28] MEDS: MEGESTROL 400 MG/10 ML UDC PO SCH (09:21)
[2021-08-28] MEDS: CINACALCET 30 MG TAB PO SCH ×2 (09:21→17:43)
[2021-08-28] MEDS: SENNA 8.6 MG TAB PO SCH ×2 (09:22→20:35)
[2021-08-28] MEDS: ASPIRIN 325 MG TAB PO SCH (09:22)
[2021-08-28] MEDS: FERROUS SULFATE 325 MG TABEC PO SCH (09:23)
[2021-08-28 09:45] LABS: BASOPHILS % (AUTO) 0.5 % (0.0-2.0); EOSINOPHILS # (AUTO) 0.4 K/uL (0-0.4); EOSINOPHILS % (AUTO) 5.2 % (0.0-4.0); HEMATOCRIT 22.4 % (36-48); HEMOGLOBIN 7.2 g/dL (12.0-16.0); LYMPHOCYTES % (AUTO) 25.2 % (20.5-51.1); MEAN CORPUSCULAR HEMOGLOBIN 27 pg (27-31); MEAN CORPUSCULAR HGB CONC 32 g/dL (33-37); MEAN CORPUSCULAR VOLUME 84.9 fL (80-94); MONOCYTES # (AUTO) 0.8 K/uL (0.8-1.0); MONOCYTES % (AUTO) 10.3 % (1.7-9.3); NEUTROPHILS # (AUTO) 4.6 K/uL (1.8-7.7); NEUTROPHILS % (AUTO) 58.8 % (42.2-75.2); PLATELET COUNT (AUTO) 446 K/uL (140-450); RED BLOOD CELL COUNT(AUTO) 2.64 MIL/uL (4.20-5.40); RED CELL DISTRIBUTION WIDTH 19.3 % (11.6-13.7); WHITE BLOOD COUNT (AUTO) 7.9 K/uL (4.8-10.8)
[2021-08-28] MEDS: ONDANSETRON 4 MG/2 ML VIAL IVP PRN (10:36)
--- NOTE | 2021-08-28 10:41 | NUR ---
PT. C/O NAUSEA. ADMINISTERED WITH ANTIEMETIC IVP MED ZOFRAN ORDER. . PT. DENIED PAIN. AND NOT IN DISTRESS OBSERVED. ALL SAFETY MEASURES PROVIDED. WILL CONTIBNUE TO MONITOR THE PT.
--- NOTE | 2021-08-28 14:27 | NUR ---
PT. COMFORTABLY SLEEPING IN THE BED. ON ROOM AIR WITH NO SIGN OF DISTRESS NOTED. ALL SAFETY MEASURES IN PLACED.WILL CONTINUE TO MONITOR THE PT.
[2021-08-28 16:00] VITALS: BP 101/54
--- NOTE | 2021-08-28 16:00 | NUR ---
PT. RESTING, STABLE ON ROOM AIR. DENIES PAIN OR DISCOMFORT. ALL SAFETY MEASURES IN PLACE. WILL CONTINUE TO MONITOR THE PT.
--- NOTE | 2021-08-28 19:47 | NUR ---
HANDOFF REPORT GIVEN TO PM SHIFT NECKTIE MAKER FOR CONTINUITY OF CARE. PT. STABLE
--- NOTE | 2021-08-28 19:48 | NUR ---
RECD. RESTING IN BED, AWAKE, A/OX3. ABLE TO VERBALIZED NEEDS. RESPIRATION EVEN AND UNLABORED. IV OF NS INFUSING A5 TKO RIGHT UPPER ARM PICC LINE, D50 WITH MULTIPLE VITAMINS INFUSING AT 100 ML/HR. INCONTINENT. SAFETY MEASURES ENFORCED. BED IN THE LOWEST POSITION, CALL LIGHT IN REACH. DENIES PAIN 0/10.
--- NOTE | 2021-08-28 20:34 | NUR ---
SCHEDULED MEDICATIONS FOR THE NIGHT ADMINISTERED. TOLERATED WELL THE PILLS BUT NOT THE LACTULOSE. ABLE TO TAKE A SMALL AMOUNT ONLY OF THIS MEDICATION AND GETS NAUSEATED AT ONCE.
[2021-08-28] MEDS: AMINO ACIDS 8.5% IV SCH ×3 (22:36)
[2021-08-28] MEDS: FAT EMULSION 20% IV SCH ×3 (22:36)
[2021-08-28] MEDS: DEXTROSE 50% IV SCH ×3 (22:36)
[2021-08-29] VITALS: BP 109/58
[2021-08-29] MEDS: BLOOD GLUCOSE MONITORING 1 DEV DEV MC SCH ×3 (00:25→12:29)
[2021-08-29] MEDS: ZOLPIDEM 10 MG TAB PO PRN (00:27)
--- NOTE | 2021-08-29 00:27 | NUR ---
UNABLE TO SLEEP MEDICATED WITH AMBIEN PER MD ORDER
--- NOTE | 2021-08-29 01:55 | NUR ---
PATIENT IN BED SLEEPING AT THIS TIME NO SIGNS OF DISTRESS SIDE RAILS UP CALL LIGHT WITHIN REACH
--- NOTE | 2021-08-29 04:00 | NUR ---
CLEANSED AND REPOSITIONED IN BED AFTER DIAPER CHANGED. WENT BACK TO SLEEP.
[2021-08-29] MEDS: metroNIDAZOLE 500 MG/NS PREMIX 100 ML IV SCH ×2 (04:52→13:13)
--- NOTE | 2021-08-29 07:14 | NUR ---
RESPIRATORY STATU REMAIN STABLE. ENDORSED TO AM SHIFT NURSE FOR CONTINUITY OF CARE.
--- NOTE | 2021-08-29 07:15 | NUR ---
RECEIVED REPORT FROM TECHNOLOGIES DIVISION CHAIR NURSE FOR CONTINUITY OF CARE.
[2021-08-29 07:30] LABS: BASOPHILS % (AUTO) 0.6 % (0.0-2.0); EOSINOPHILS # (AUTO) 0.4 K/uL (0-0.4); EOSINOPHILS % (AUTO) 5.7 % (0.0-4.0); HEMATOCRIT 26.1 % (36-48); HEMOGLOBIN 8.6 g/dL (12.0-16.0); LYMPHOCYTES # (AUTO) 2.2 K/uL (2.5-16.5); MEAN CORPUSCULAR HEMOGLOBIN 28 pg (27-31); MEAN CORPUSCULAR HGB CONC 33 g/dL (33-37); MEAN CORPUSCULAR VOLUME 84.6 fL (80-94); MONOCYTES # (AUTO) 0.8 K/uL (0.8-1.0); MONOCYTES % (AUTO) 10.1 % (1.7-9.3); NEUTROPHILS # (AUTO) 4.1 K/uL (1.8-7.7); NEUTROPHILS % (AUTO) 54.6 % (42.2-75.2); PLATELET COUNT (AUTO) 410 K/uL (140-450); RED BLOOD CELL COUNT(AUTO) 3.09 MIL/uL (4.20-5.40); RED CELL DISTRIBUTION WIDTH 19.1 % (11.6-13.7); WHITE BLOOD COUNT (AUTO) 7.5 K/uL (4.8-10.8)
[2021-08-29] MEDS: PANTOPRAZOLE 40 MG INJ VIAL IVP SCH (07:39)
[2021-08-29 07:49] LABS: ANION GAP 11.3 (8-16); CARBON DIOXIDE 22.1 mmol/L (21-32); CHLORIDE 106 mmol/L (98-107); CREATININE 0.7 mg/dL (0.6-1.3); GLUCOSE 143 mg/dL (74-106); POTASSIUM 4.4 mmol/L (3.5-5.1); SODIUM SERUM 135 mmol/L (136-145); UREA NITROGEN, BLOOD 11 mg/dL (7-18)
[2021-08-29 07:55] LABS: MAGNESIUM 1.9 mg/dL (1.8-2.4); PHOSPHORUS 3.3 mg/dL (2.5-4.9)
[2021-08-29 08:00] VITALS: BP 98/50
--- NOTE | 2021-08-29 08:00 | NUR ---
Patient's Plan of Care was discussed and reviewed with PEDIATRIC IMMUNOLOGIST: LINDA CASTAÑEDA, REE
[2021-08-29] MEDS: ASPIRIN 325 MG TAB PO SCH (09:57)
[2021-08-29] MEDS: SENNA 8.6 MG TAB PO SCH (09:58)
[2021-08-29] MEDS: CINACALCET 30 MG TAB PO SCH ×2 (09:58→14:00)
[2021-08-29] MEDS: LACTULOSE 20 GM/30 ML UDC PO SCH (09:58)
[2021-08-29] MEDS: FERROUS SULFATE 325 MG TABEC PO SCH (09:58)
[2021-08-29] MEDS: MEGESTROL 400 MG/10 ML UDC PO SCH (09:58)
--- NOTE | 2021-08-29 10:03 | NUR ---
GIVEN ORAL MEDICATION BUT REFUSED LACTULOSE EVEN WITH EXPLANATION AND ENCOURAGEMENT STATED MAKE HER NAUSEATED.
[2021-08-29] MEDS ORDERED: fentaNYL citrate 0.05 MG/ML VIAL ONE (13:54)
[2021-08-29] MEDS ORDERED: MIDAZOLAM 5 MG/5 ML VIAL ONE (13:54)
--- NOTE | 2021-08-29 14:09 | NUR ---
DR. VERMA ORDER FOR PT TO HAVE PEG PLACEMENT CONSENT OBTAINED FROM VERIFIED WITH 2 NURSE.
--- NOTE | 2021-08-29 14:10 | NUR ---
PT TRANSFER TO OR FOR PEG PLACEMENT VIA GURNEY ASSISTED BY 2 OR STAFF. PT AWAKE AND VERBALLY RESPONSIVE.
--- NOTE | 2021-08-29 14:46 | NUR ---
PT BACK FROM OR VIA [facility] ASSISTED BY 2 OR STAFF PT ASLEEP NO DISTRESS NOTED.
--- NOTE | 2021-08-29 15:13 | NUR ---
08/29/21 RD FOLLOW UP COMPLETED PLEASE REFER TO NUTRITION ASSESSMENT UNDER CARE ACTIVITY FOR ESTIMATED NUTRITIONAL NEEDS. 1. CONTINUE GLUCERNA 1.2 WITH A GOAL RATE OF 50 ML/HR, FWF 50 ML Q8H TOLERATED -PROVIDES 1440 KCAL AND 72 GM PROTEIN, MEETING ESTIMATED NUTRITIONAL GOALS 2. RD TO FOLLOW-UP 2-3 DAYS, HIGH RISK TATY PENG, RD
[2021-08-29] MEDS ORDERED: fentaNYL citrate 0.05 MG/ML VIAL IVP ONE (15:25)
[2021-08-29] MEDS ORDERED: MIDAZOLAM 2 MG/2 ML VIAL IVP ONE (15:25)
[2021-08-29] MEDS: ERYTHROMYCIN 200 MG in NACL 0.9% 100 ML IV SCH ×2 (15:30→20:33)
[2021-08-29 16:00] VITALS: BP 100/56
--- NOTE | 2021-08-29 16:54 | NUR ---
BLOOD SUGAR CHECK NO COVERAGE NOTED PT ASLEEP NO DISTRESS. STILL ON TPN. GT SITE NO BLEDING OR S/S OF INFECTION WITH ABDOMINAL BINDER.
--- NOTE | 2021-08-29 18:00 | NUR ---
PT CHANGE DIAPER AND REPOSITION. GT INTACT NO BLEEDING NOTED.
--- NOTE | 2021-08-29 18:31 | NUR ---
PT ASLEEP BUT ABLE WAKE UP WHEN CALLED NO DISTRESS NOTED. PICC LINE ON RIGHT UPPER ARM INTACT NO SIGN AND SYMPTOMS OF INFECTION STILL AT TPN. PT. NOTED WITH ARM SWELLING, ELEVATED. CALL LIGHT WITH IN EASY REACH. NO ADVERSE REACTION NOTED FOR ANTIBIOTIC.
--- NOTE | 2021-08-29 19:29 | NUR ---
PT ENDORSE TO SALES FLOOR MANAGER NURSE FOR CONTINUITY OF CARE.
[2021-08-29 20:00] VITALS: BP 140/74
[2021-08-29] MEDS ORDERED: AMINO ACIDS 8.5% IV SCH ×3 (20:00)
[2021-08-29] MEDS ORDERED: FAT EMULSION 20% IV SCH ×3 (20:00)
[2021-08-29] MEDS ORDERED: DEXTROSE 50% IV SCH ×3 (20:00)
--- NOTE | 2021-08-29 20:00 | NUR ---
RECEIVED BEDSIDE REPORT FROM DAY SHIFT RN FOR CONTINUITY OF CARE. PT IS SLEEPING IN BED. PT IS NOT IN ANY DISTRESS. BREATHING RHYTHMIC AND SYMMETRICAL. CALL LIGHT WITHIN REACH. ALL SAFETY MEASURES TAKEN. WILL CONTINUE TO MONITOR THE PT.
[2021-08-29] MEDS: FUROSEMIDE 40 MG/5 ML ORAL SOL UDC GT SCH (22:45)
--- NOTE | 2021-08-30 00:13 | NUR ---
PT IS SLEEPING IN BED. PT IS NOT IN ANY DISTRESS. BREATHING RHYTHMIC AND SYMMETRICAL. FEEDING RUNNING MD ORDER. WILL CONTINUE TO MONITOR THE PT.
--- NOTE | 2021-08-30 02:00 | NUR ---
PT WAS CLEAN AND CHANGED REQUESTED. PT HAS NO FURTHER COMPLAINS. FEEDING RUNNING MD ORDER. TOLERATING IT WELL. CALL LIGHT WITHIN REACH. ALL SAFETY MEASURES TAKEN. WILL CONTINUE TO MONITOR THE PT.
[2021-08-30 04:00] VITALS: BP 71/34
--- NOTE | 2021-08-30 05:48 | NUR ---
PT IS AWAKE IN BED WATCHING T.V. PT IS NOT IN ANY DISTRESS. HAS NO COMPLAINS. BREATHING RHYTHMIC AND SYMMETRICAL. CALL LIGHT WITHIN REACH. ALL SAFETY MEASURES TAKEN. WILL CONTINUE TO MONITOR THE PT.
[2021-08-30] MEDS: ERYTHROMYCIN 200 MG in NACL 0.9% 100 ML IV SCH (06:32)
--- NOTE | 2021-08-30 07:22 | NUR ---
ENDORSED PT TO DAY SHIFT RN FOR CONTINUITY OF CARE. PT IS STABLE.
--- NOTE | 2021-08-30 07:22 | NUR ---
RECEIVED ENDORSEMENT FROM MEDICAL TECHNICIAN NURSE FOR CONTINUITY OF CARE.
[2021-08-30 07:40] LABS: BASOPHILS # (AUTO) 0.1 K/uL (0.00-0.22); BASOPHILS % (AUTO) 0.6 % (0.0-2.0); EOSINOPHILS # (AUTO) 0.3 K/uL (0-0.4); HEMATOCRIT 22.2 % (36-48); HEMOGLOBIN 7.4 g/dL (12.0-16.0); LYMPHOCYTES # (AUTO) 2.4 K/uL (2.5-16.5); LYMPHOCYTES % (AUTO) 28.7 % (20.5-51.1); MEAN CORPUSCULAR HEMOGLOBIN 28 pg (27-31); MEAN CORPUSCULAR HGB CONC 33 g/dL (33-37); MEAN CORPUSCULAR VOLUME 84.2 fL (80-94); MONOCYTES # (AUTO) 0.8 K/uL (0.8-1.0); MONOCYTES % (AUTO) 9.3 % (1.7-9.3); NEUTROPHILS # (AUTO) 4.8 K/uL (1.8-7.7); NEUTROPHILS % (AUTO) 57.4 % (42.2-75.2); PLATELET COUNT (AUTO) 546 K/uL (140-450); RED BLOOD CELL COUNT(AUTO) 2.64 MIL/uL (4.20-5.40); RED CELL DISTRIBUTION WIDTH 18.5 % (11.6-13.7); WHITE BLOOD COUNT (AUTO) 8.3 K/uL (4.8-10.8)
[2021-08-30 08:16] LABS: ANION GAP 14.3 (8-16); CARBON DIOXIDE 20.9 mmol/L (21-32); CHLORIDE 104 mmol/L (98-107); GLUCOSE 87 mg/dL (74-106); POTASSIUM 4.2 mmol/L (3.5-5.1); SODIUM SERUM 135 mmol/L (136-145); UREA NITROGEN, BLOOD 13 mg/dL (7-18)
[2021-08-30] MEDS ORDERED: ERYTHROMYCIN 200 MG in NACL 0.9% 100 ML IV SCH (08:53)
[2021-08-30 09:06] LABS: CREATININE 0.8 mg/dL (0.6-1.3)
--- NOTE | 2021-08-30 09:28 | NUR ---
DR. NAVARRETE AT BED SIDE.
[2021-08-30] MEDS: CINACALCET 30 MG TAB PO SCH (09:40)
[2021-08-30] MEDS: ASPIRIN 81 MG TAB.CHEW PO SCH (09:40)
[2021-08-30 09:41] LABS: MAGNESIUM 1.4 mg/dL (1.8-2.4); PHOSPHORUS 4.5 mg/dL (2.5-4.9)
[2021-08-30] MEDS: FUROSEMIDE 40 MG/5 ML ORAL SOL UDC GT SCH ×2 (09:41→21:00)
[2021-08-30] MEDS: POTASSIUM CHLORIDE 20% 40 MEQ/15 ML UDC GT SCH (09:41)
--- NOTE | 2021-08-30 09:52 | NUR ---
GIVEN ALL DUE MEDICATION NO VOMITING NOTED. GT FEEDING INTACT NO S/S OF INFECTION . RESIDUAL ONLY 5CC.
--- NOTE | 2021-08-30 11:00 | NUR ---
GT FEEDING WITH NO RESIDUAL INCREASE TO 50 CC/HOUR.
--- NOTE | 2021-08-30 13:00 | NUR ---
WHEN PT IS WORKING WITH PT SHE VOMITED MODERATE AMOUNT OF FEEDING. HELD FEEDING TUBE.
--- NOTE | 2021-08-30 13:30 | NUR ---
DR. ESTRELLA AT BED SIDE INFORM OF PT VOMITING AND VERBAL ORDER TO JUST KEEP PT GT AT 30CC/HOUR. GT FEEDING RATE CHANGE. .
--- NOTE | 2021-08-30 15:30 | NUR ---
PT ASLEEP NO DISTRESS NOTED ON BED ASLEEP WITH CALL LIGHT WITH IN EASY REACH.
[2021-08-30 16:00] VITALS: BP 90/43
--- NOTE | 2021-08-30 17:30 | NUR ---
PT ASLEEP NO DISTRESS GT AT 30 CC/HOUR TOLERATED WELL.
[2021-08-30] MEDS: ACETAMINOPHEN 325 MG TAB PO PRN (18:01)
[2021-08-30] MEDS: ERYTHROMYCIN 100 MG in NACL 0.9% 100 ML IV SCH (18:02)
[2021-08-30] MEDS: ONDANSETRON 4 MG/2 ML VIAL IVP PRN (18:11)
--- NOTE | 2021-08-30 18:30 | NUR ---
PT COMPLAIN OF PAIN ON ABDOMEN, CHEST AND BACK AND SHE SAID ITS MOVING. WHEN I'M GOING TO GIVE HER PAIN MEDICATION VIA GT PT STATING GET NAUSEATED MEDICATED FOR NAUSEA RN GAVE AND IV ATB GIVEN BY RN. TOLERATED WELL.
--- NOTE | 2021-08-30 19:20 | NUR ---
GAVE REPORT TO MEDICINE TECH NURSE FOR CONTINUITY OF CARE.
--- NOTE | 2021-08-30 19:30 | NUR ---
RECEIVED BEDSIDE REPORT FROM DAY SHIFT RN FOR CONTINUITY OF CARE. PT IS SLEEPING IN BED. FEEDING IS STOPPED SINCE SHE WAS VOMITING. WILL RESUME LATER AND SEE HOW SHE TOLERATES IT. CALL LIGHT WITHIN REACH. ALL SAFETY MEASURES TAKEN. WILL CONTINUE TO MONITOR THE PT.
[2021-08-30 20:00] VITALS: BP 103/52
--- NOTE | 2021-08-30 20:30 | NUR ---
RESUMED FEEDING. PT IS TOLERATING THE FEEDING WELL. NO SIGNS OF VOMITING. WILL CONTINUE TO OBSERVE THE PT.
--- NOTE | 2021-08-30 23:35 | NUR ---
PT WAS CLEANED AND CHANGED REQUESTED. PT IS NOT IN ANY DISTRESS AND HAS NO FURTHER COMPLAINS. CALL LIGHT WITHIN REACH. ALL SAFETY MEASURES TAKEN. WILL CONTINUE TO MONITOR THE PT.
[2021-08-31] MEDS: ERYTHROMYCIN 100 MG in NACL 0.9% 100 ML IV SCH ×4 (00:18→17:53)
[2021-08-31] MEDS: ONDANSETRON 4 MG/2 ML VIAL IVP PRN (02:59)
[2021-08-31] MEDS: ACETAMINOPHEN 325 MG TAB PO PRN (02:59)
[2021-08-31 04:00] VITALS: BP 101/54
--- NOTE | 2021-08-31 06:00 | NUR ---
PT IS SLEEPING IN BED COMFORTABLY ON RA. PT IS NOT IN ANY DISTRESS. BREATHING RHYTHMIC AND SYMMETRICAL. CALL LIGHT WITHIN REACH. ALL SAFETY MEASURES TAKEN. WILL CONTINUE TO MONITOR THE PT.
--- NOTE | 2021-08-31 07:30 | NUR ---
ENDORSED PT TO DAY SHIFT NURSE FOR CONTINUITY OF CARE. PT IS STABLE.
[2021-08-31 08:00] VITALS: BP 119/50
--- NOTE | 2021-08-31 08:05 | NUR ---
RECEIVED REPORT FROM RECHARGER NURSE FOR CONTINUITY OF CARE. PT IN BED AT THIS TIME WATCHING TELEVISION. RESPIRATIONS ARE EVEN AND UNLABORED. NO SIGNS OF DISTRESS NOTED. NO COMPLAINTS OF PAIN OR DISCOMFORT NOTED. CALL LIGHT WITHIN REACH. ALL SAFETY MEASURES IN PLACE. WILL CONTINUE TO MONITOR.
[2021-08-31 08:18] LABS: BASOPHILS % (AUTO) 0.7 % (0.0-2.0); EOSINOPHILS # (AUTO) 0.2 K/uL (0-0.4); EOSINOPHILS % (AUTO) 2.3 % (0.0-4.0); HEMATOCRIT 20.8 % (36-48); LYMPHOCYTES % (AUTO) 13.5 % (20.5-51.1); MEAN CORPUSCULAR HEMOGLOBIN 28 pg (27-31); MEAN CORPUSCULAR HGB CONC 33 g/dL (33-37); MEAN CORPUSCULAR VOLUME 84.1 fL (80-94); MONOCYTES # (AUTO) 0.7 K/uL (0.8-1.0); MONOCYTES % (AUTO) 9.8 % (1.7-9.3); NEUTROPHILS # (AUTO) 5.4 K/uL (1.8-7.7); NEUTROPHILS % (AUTO) 73.7 % (42.2-75.2); PLATELET COUNT (AUTO) 498 K/uL (140-450); RED BLOOD CELL COUNT(AUTO) 2.47 MIL/uL (4.20-5.40); RED CELL DISTRIBUTION WIDTH 17.9 % (11.6-13.7); WHITE BLOOD COUNT (AUTO) 7.3 K/uL (4.8-10.8)
[2021-08-31 09:04] LABS: MAGNESIUM 1.1 mg/dL (1.8-2.4); PHOSPHORUS 5.1 mg/dL (2.5-4.9)
--- NOTE | 2021-08-31 09:05 | NUR ---
LAB CALLED WITH CRITICAL LAB VALUE. PT HGB IS 6.9. HOWEVER, PER LAB/BLOOD BANK, THERE IS A BLOOD SHORTAGE, NO BLOOD AVAILABLE AND BLOOD IS ONLY BEING GIVEN IF PT IS ACTIVELY BLEEDING. INFORMED DR NAVARRETE. NO NEW ORDERS. WILL CONTINUE TO MONITOR.
[2021-08-31 09:07] LABS: HEMOGLOBIN 6.9 g/dL (12.0-16.0)
[2021-08-31] MEDS: FUROSEMIDE 40 MG/5 ML ORAL SOL UDC GT SCH ×2 (09:19→21:35)
[2021-08-31] MEDS: ASPIRIN 81 MG TAB.CHEW PO SCH (09:20)
[2021-08-31] MEDS: POTASSIUM CHLORIDE 20% 40 MEQ/15 ML UDC GT SCH (09:20)
[2021-08-31] MEDS: CINACALCET 30 MG TAB PO SCH (09:20)
--- NOTE | 2021-08-31 09:20 | NUR ---
ADMINISTERED SCHEDULED MEDICATIONS. EDUCATED PT REGARDING MEDS ADMINISTERED. PT TOLERATED WELL. WILL CONTINUE TO MONITOR.
[2021-08-31 11:23] LABS: ANION GAP 13.6 (8-16); CARBON DIOXIDE 22.8 mmol/L (21-32); CHLORIDE 106 mmol/L (98-107); CREATININE 0.8 mg/dL (0.6-1.3); GLUCOSE 86 mg/dL (74-106); POTASSIUM 3.4 mmol/L (3.5-5.1); SODIUM SERUM 139 mmol/L (136-145); UREA NITROGEN, BLOOD 14 mg/dL (7-18)
--- NOTE | 2021-08-31 11:32 | NUR ---
IV MEDICATION ADMINISTERED BY RN. WILL CONTINUE TO MONITOR.
--- NOTE | 2021-08-31 12:00 | NUR ---
PT HAD EPISODE OF EMESIS. APPROXIMATELY 110CC EMESIS. MADE AWARE. WILL CONTINUE TO MONITOR.
--- NOTE | 2021-08-31 12:29 | NUR ---
(08/31/21) RD FOLLOW UP COMPLETED PLEASE REFER TO NUTRITION PROGRESS NOTE UNDER CARE ACTIVITY FOR ESTIMATED NUTRITION NEEDS. RD RECOMMENDATIONS: 1.CONTINUE TO HOLD FEEDING AND RESUME WHEN APPROPRIATE. 2.WHEN RESUMED, CONTINUE GLUCERNA 1.2 WITH A GOAL RATE OF 30 ML/HR + ADVANCE TOWARDS GOAL OF 50 ML/HR, FWF 50 ML Q8H TOLERATED. THIS PROVIDES 1440 KCAL AND 72 GM PROTEIN, MEETING ESTIMATED NUTRITIONAL GOALS. 3.IF PT CONTINUES TO HAVE EPISODES OF N/V, CONSIDER CHANGING TF FORMULA TO VITAL AF 1.2 TO RUN AT 10 ML/HR + ADVANCING BY 10 ML Q4H TOLERATED UNTIL GOAL RATE OF 50 ML/HR IS REACHED WITH FWF FWF 120 ML Q4H. VITAL AF 1.2 AT 45 ML/HR WILL PROVIDE 1080 ML, 1296 KCAL, 81 GM PROTEIN, 973 ML FREE WATER TO MEET 85% EST KCAL NEEDS AND >100% EST PROTEIN NEEDS. 4. RD TO FOLLOW-UP 2-3 DAYS, HIGH RISK CARITO DUONG, MS, RDN
--- NOTE | 2021-08-31 15:58 | NUR ---
DID ROUNDS ON PT. FAMILY AT BEDSIDE. PT IN BED RESTING AT THIS TIME. RESPIRATIONS ARE EVEN AND UNLABORED. NO SIGNS OF DISTRESS NOTED. NO COMPLAINTS OF PAIN OR DISCOMFORT AT THIS TIME. WILL CONTINUE TO MONITOR.
[2021-08-31 16:00] VITALS: BP 109/50
--- NOTE | 2021-08-31 19:27 | NUR ---
PT IN BED RESTING AT THIS TIME. ALL NEEDS MET THROUGHOUT SHIFT. PT IS STABLE. WILL ENDORSE TO UNDERWRITING SUPPORT SPECIALIST NURSE.
--- NOTE | 2021-08-31 19:28 | NUR ---
RECEIVED REPORT FROM MORNING SHIFT FOR CONTINUITY OF CARE. PATIENT IS STABLE IN BED. A&OX3 [place] SPEAKING ONLY. VERBALLY RESPONSIVE AND ABLE TO COMMUNICATE NEEDS. DENIES PAIN. ON ROOM AIR WITH NO APPARENT S/SX OF ACUTE DISTRESS. RESPIRATIONS EVEN AND UNLABORED. IV SITE TO THE NEGRO MIDLINE IS PATENT/INTACT/ASYMPTOMATIC. SKIN IS INTACT. GT FEEDING IS RUNNING WITH NO APPARENT OBSTRUCTION. PATIENT IS INCONTINENT AND UTILIZES PULL UPS. PLAN OF CARE AND WHITE COMMUNICATION BOARD UPDATED. BED IN LOW/LOCKED POSITION. CALL LIGHT WITHIN REACH. WILL CONTINUE TO MONITOR.
[2021-08-31 20:00] VITALS: BP 111/61
--- NOTE | 2021-08-31 21:25 | NUR ---
ADMINISTERED SCHEDULED MEDICATIONS PER MD ORDER. NO RESIDUALS NOTED AT THIS TIME. TOLERATED WELL. NO ADVERSE REACTION NOTED. PROVIDED PATIENT WITH NEW EMESIS BAG. DENIES PAIN. RESPIRATIONS EVEN AND UNLABORED WITH NO APPARENT S/SX OF ACUTE DISTRESS. ALL SAFETY MEASURES IN PLACE. CALL LIGHT WITHIN REACH. WILL CONTINUE TO MONITOR.
--- NOTE | 2021-08-31 23:25 | NUR ---
CHECKED PATIENT. STABLE AND ASLEEP. CHEST IS RISING AND FALLING SYMMETRICALLY. RESPIRATIONS EVEN AND UNLABORED WITH NO APPARENT S/SX OF ACUTE DISTRESS. WHITE COMMUNICATION BOARD UPDATED. ALL SAFETY MEASURES IN PLACE. CALL LIGHT WITHIN REACH. WILL CONTINUE TO MONITOR.
--- NOTE | 2021-09-01 00:45 | NUR ---
LAB CALLED REGARDING STOOL SAMPLE. C DIFF FORM IS MISSING. WILL COMPLETE AND TURN INTO LAB.
--- NOTE | 2021-09-01 01:25 | NUR ---
ROUNDED ON PATIENT. STABLE AND ASLEEP. CHEST IS RISING AND FALLING SYMMETRICALLY. RESPIRATIONS EVEN AND UNLABORED WITH NO APPARENT S/SX OF ACUTE DISTRESS. WHITE COMMUNICATION BOARD UPDATED. ALL SAFETY MEASURES IN PLACE. CALL LIGHT WITHIN REACH. WILL CONTINUE TO MONITOR.
--- NOTE | 2021-09-01 03:28 | NUR ---
Patient's Plan of Care was discussed and reviewed with ARMORER TECHNICIAN: YNES RAMSEY
[2021-09-01] MEDS: ERYTHROMYCIN 100 MG in NACL 0.9% 100 ML IV SCH ×5 (05:47→18:07)
--- NOTE | 2021-09-01 07:10 | NUR ---
ENDORSED PATIENT TO MORNING SHIFT NURSE FOR CONTINUITY OF CARE. PATIENT IS STABLE.
--- NOTE | 2021-09-01 07:11 | NUR ---
RECEIVED REPORT FROM ANDROID PROGRAMMER NURSE FOR CONTINUTIY OF CARE. PT IS IN BED SLEEPING AT THIS TIME. RESPIRATIONS ARE EVEN AND UNLABORED. PT ON ROOM AIR. NO SIGNS OF DISTRESS NOTED. NO SIGNS OF PAIN OR DISCOMFORT AT THIS TIME. CALL LIGHT WITHIN REACH. ALL SAFETY MEASURES IN PLACE. WILL CONTINUE TO MONITOR.
[2021-09-01 08:00] VITALS: BP 118/53
[2021-09-01 08:05] LABS: BASOPHILS # (AUTO) 0.1 K/uL (0.00-0.22); BASOPHILS % (AUTO) 0.6 % (0.0-2.0); EOSINOPHILS # (AUTO) 0.1 K/uL (0-0.4); HEMATOCRIT 22.3 % (36-48); HEMOGLOBIN 7.5 g/dL (12.0-16.0); LYMPHOCYTES # (AUTO) 1.9 K/uL (2.5-16.5); LYMPHOCYTES % (AUTO) 20.9 % (20.5-51.1); MEAN CORPUSCULAR HEMOGLOBIN 28 pg (27-31); MEAN CORPUSCULAR HGB CONC 34 g/dL (33-37); MEAN CORPUSCULAR VOLUME 83.6 fL (80-94); MONOCYTES # (AUTO) 1.3 K/uL (0.8-1.0); MONOCYTES % (AUTO) 13.9 % (1.7-9.3); NEUTROPHILS # (AUTO) 5.8 K/uL (1.8-7.7); NEUTROPHILS % (AUTO) 63.6 % (42.2-75.2); PLATELET COUNT (AUTO) 531 K/uL (140-450); RED BLOOD CELL COUNT(AUTO) 2.67 MIL/uL (4.20-5.40); RED CELL DISTRIBUTION WIDTH 17.3 % (11.6-13.7); WHITE BLOOD COUNT (AUTO) 9.1 K/uL (4.8-10.8)
[2021-09-01 08:32] LABS: ANION GAP 11.2 (8-16); CARBON DIOXIDE 25.1 mmol/L (21-32); CHLORIDE 101 mmol/L (98-107); GLUCOSE 92 mg/dL (74-106); POTASSIUM 3.3 mmol/L (3.5-5.1); SODIUM SERUM 134 mmol/L (136-145)
[2021-09-01 08:54] LABS: MAGNESIUM 1.2 mg/dL (1.8-2.4); PHOSPHORUS 4.5 mg/dL (2.5-4.9)
[2021-09-01] MEDS: ASPIRIN 81 MG TAB.CHEW PO SCH (09:40)
[2021-09-01] MEDS: FUROSEMIDE 40 MG/5 ML ORAL SOL UDC GT SCH ×2 (09:40→21:31)
[2021-09-01] MEDS: CINACALCET 30 MG TAB PO SCH (09:40)
[2021-09-01] MEDS: POTASSIUM CHLORIDE 20% 40 MEQ/15 ML UDC GT SCH (09:40)
--- NOTE | 2021-09-01 09:40 | NUR ---
ADMINISTERED ALL SCHEDULED MEDICATIONS. EDUCATED PT REGARDING MEDS ADMINISTERED. PT STATED "OK". CALL LIGHT WITHIN REACH. ALL SAFETY MEASURES IN PLACE. WILL CONTINUE TO MONITOR.
[2021-09-01] MEDS: ACETAMINOPHEN 325 MG TAB PO PRN (10:11)
--- NOTE | 2021-09-01 10:11 | NUR ---
EARLY INTERVENTION SPECIALIST REPORTED A TEMP OF 101.0. COOLING MEASURES IN EFFECT. MEDICATED PT. WILL RE-ASSESS. WILL CONTINUE TO MONITOR.
[2021-09-01 10:17] LABS: UREA NITROGEN, BLOOD 12 mg/dL (7-18)
--- NOTE | 2021-09-01 11:12 | NUR ---
IV ANTIBIOTICS ADMINISTERED BY RN. WILL CONTINUE TO MONITOR.
--- NOTE | 2021-09-01 11:12 | NUR ---
RE-ASSESSED PT TEMP. NEW TEMP 99.0 WILL CONTINUE TO MONITOR.
--- NOTE | 2021-09-01 15:41 | NUR ---
DID ROUNDS ON PT. PT IN BED SLEEPING AT THIS TIME. FAMILY AT BEDSIDE. NO SIGNS OF DISTRESS NOTED. NO SIGNS OF PAIN OR DISCOMFORT. CALL LIGHT WITHIN REACH. ALL SAFETY MEASURES IN PLACE. WILL CONTINUE TO MONITOR.
[2021-09-01 16:00] VITALS: BP 119/58
--- NOTE | 2021-09-01 18:51 | NUR ---
PT IN BED RESTING AT THIS TIME. RESPIRATIONS ARE EVEN AND UNLABORED. NO SIGNS OF DISTRESS NOTED. ALL NEEDS MET THROUGHOUT SHIFT. PT IS STABLE. WILL ENDORSE TO APPLICATION DESIGN ENGINEER.
--- NOTE | 2021-09-01 19:10 | NUR ---
RECEIVED REPORT FROM MORNING SHIFT FOR CONTINUITY OF CARE. PATIENT IS STABLE IN BED. A&OX2 [place] SPEAKING ONLY. VERBALLY RESPONSIVE AND ABLE TO COMMUNICATE NEEDS. DENIES PAIN. ON ROOM AIR WITH NO APPARENT S/SX OF ACUTE DISTRESS. RESPIRATIONS EVEN AND UNLABORED. IV SITE TO THE NEGRO MIDLINE IS PATENT/INTACT/ASYMPTOMATIC. SKIN IS INTACT. GT FEEDING OF GLUCERNA IS RUNNING AT 30 ML/HOUR WITH NO APPARENT OBSTRUCTION. PATIENT IS INCONTINENT AND UTILIZES PULL UPS. PLAN OF CARE AND WHITE COMMUNICATION BOARD UPDATED. BED IN LOW/LOCKED POSITION. CALL LIGHT WITHIN REACH. WILL CONTINUE TO MONITOR.
[2021-09-01 20:00] VITALS: BP 114/55
[2021-09-02] MEDS: ERYTHROMYCIN 100 MG in NACL 0.9% 100 ML IV SCH ×5 (00:33→23:54)
--- NOTE | 2021-09-02 01:58 | NUR ---
Patient's Plan of Care was discussed and reviewed with COAL CHUTE WORKER: YNES BROWN
--- NOTE | 2021-09-02 05:10 | NUR ---
CLEANED AND CHANGED PATIENT. TOLERATED WELL. CHANGED GT FEEDING BAG. INCREASED RATE TO 40 ML/HOUR. DENIES PAIN. RESPIRATIONS EVEN AND UNLABORED WITH NO APPARENT S/SX OF ACUTE DISTRESS. ALL NEEDS MET. WHITE COMMUNICATION BOARD UPDATED. ALL SAFETY MEASURES IN PLACE. CALL LIGHT WITHIN REACH. WILL CONTINUE TO MONITOR.
--- NOTE | 2021-09-02 07:20 | NUR ---
ENDORSED PATIENT TO MORNING SHIFT NURSE FOR CONTINUITY OF CARE. PATIENT IS STABLE.
--- NOTE | 2021-09-02 07:30 | NUR ---
REPORT RECEIVED FROM PM SHIFT REE TA FOR CONTINUITY OF CARE. PT. SLEEPING IN THE BED. NOT IN DISTRESS NOTED ON ROOM AIR. ALL SAFETY MEASURES IN PLACED. WILL CONTINUE TO MONITOR THE PT.
[2021-09-02 08:00] VITALS: BP 105/46
--- NOTE | 2021-09-02 08:36 | NUR ---
RECEIVED CALL FROM [facility]. NUCLEAR MEDICINE FOR THIS PT. IS SCHEDULED FOR PROCEDURE AT BEDSIDE (GASTRIC EMPTING STUDY. ) THEY WILL COME AROUND AT 1300. AND SAID TO HOLD THE FEEDING FOR NOW.FEEDING PUT ON HOLD FROM NOW. WILL FOLLOW UP.
--- NOTE | 2021-09-02 09:25 | NUR ---
PHYSICAL THERAPY CO-SIGN The Physical Therapy Progress Notes documented by Entry Processor have been reviewed. Reviewed/Co-Signed by: Cookie Gonzalez Documentation Done by: SANDI BENJAMIN PTA Addendum: 09/02/21 at 5650 by Cookie Gonzalez PT Amended: Links added.
[2021-09-02] MEDS: POTASSIUM CHLORIDE 20% 40 MEQ/15 ML UDC GT SCH (09:31)
[2021-09-02] MEDS: ASPIRIN 81 MG TAB.CHEW PO SCH (09:32)
[2021-09-02] MEDS: CINACALCET 30 MG TAB PO SCH ×3 (09:32→21:11)
[2021-09-02] MEDS: FUROSEMIDE 40 MG/5 ML ORAL SOL UDC GT SCH ×2 (09:32→21:11)
[2021-09-02] MEDS ORDERED: POTASSIUM CHLORIDE 20% 40 MEQ/15 ML UDC GT SCH (13:00)
[2021-09-02] MEDS ORDERED: MAG SULF 2000 MG/WATER PREMIX 100 ML IV SCH (13:00)
--- NOTE | 2021-09-02 13:30 | NUR ---
BEDSIDE PROCEDURE STARTED (GASTRIC EMPTING STUDY).PT. TOLERATED WELL. PT. STABLE. BREATHINGS EVEN AND UNLABORED. NOT IN DISTRESS NOTED. CONTINUE MONITORING THE PT.
--- NOTE | 2021-09-02 15:00 | NUR ---
PROCEDURE FINISHED(GASTRIC EMPTING STUDY). PT. TOLERATED WELL. PT. STABLE ON ROOM AIR . NOT IN DISTRESS. ALL SAFETY MEASURES IN PLACED. WILL CONTINUE TO MONITOR THE PT.
[2021-09-02 16:00] VITALS: BP 92/49
--- NOTE | 2021-09-02 16:00 | NUR ---
RESUMED FEEDING SAME RATE. . WILL CONTINUE TO MONITOR THE PT.
--- NOTE | 2021-09-02 16:13 | NUR ---
PHYSICAL THERAPY CO-SIGN The Physical Therapy Progress Notes documented by Program Dir have been reviewed. Reviewed/Co-Signed by: Cookie Gonzalez Documentation Done by: SANDI BENJAMIN PTA Addendum: 09/02/21 at 1614 by Cookie Gonzalez PT Amended: Links added.
--- NOTE | 2021-09-02 18:58 | NUR ---
PT. COMFORTABLY SLEEPING IN THE BED. NO RESP. DISTRESS NOTED ON ROOM AIR. BREATHINGS EVEN ANG UNLABORED. ALL SAFETY MEASURES IN PLACED. WILL ENDORSE REPORT TO THE PM SHIFT NURSE.
--- NOTE | 2021-09-02 19:10 | NUR ---
RECEIVED REPORT FROM MORNING SHIFT FOR CONTINUITY OF CARE. PATIENT IS STABLE IN BED. A&OX2 TURKISH SPEAKING ONLY. VERBALLY RESPONSIVE AND ABLE TO COMMUNICATE NEEDS. DENIES PAIN. ON ROOM AIR WITH NO APPARENT S/SX OF ACUTE DISTRESS. RESPIRATIONS EVEN AND UNLABORED. IV SITE TO THE NEGRO MIDLINE IS PATENT/INTACT/ASYMPTOMATIC WITH TKO NS @ 10 ML/HR. SKIN IS INTACT. GT FEEDING OF GLUCERNA IS RUNNING AT 40 ML/HOUR WITH NO APPARENT OBSTRUCTION. PATIENT IS INCONTINENT AND UTILIZES PULL UPS. PLAN OF CARE AND WHITE COMMUNICATION BOARD UPDATED. BED IN LOW/LOCKED POSITION. CALL LIGHT WITHIN REACH. WILL CONTINUE TO MONITOR.
[2021-09-02 20:00] VITALS: BP 105/61
--- NOTE | 2021-09-02 20:00 | NUR ---
Patient's Plan of Care was discussed and reviewed with REE: CELY
--- NOTE | 2021-09-03 05:10 | NUR ---
CLEANED AND CHANGED PATIENT. TOLERATED WELL. DENIES PAIN. RESPIRATIONS EVEN AND UNLABORED WITH NO APPARENT S/SX OF ACUTE DISTRESS. ALL NEEDS MET. WHITE COMMUNICATION BOARD UPDATED. ALL SAFETY MEASURES IN PLACE. CALL LIGHT WITHIN REACH. WILL CONTINUE TO MONITOR.
[2021-09-03] MEDS: ERYTHROMYCIN 100 MG in NACL 0.9% 100 ML IV SCH ×2 (05:51→11:20)
--- NOTE | 2021-09-03 07:15 | NUR ---
ENDORSED PATIENT TO MORNING SHIFT NURSE FOR CONTINUITY OF CARE. PATIENT IS STABLE.
--- NOTE | 2021-09-03 07:20 | NUR ---
RECEIVED ENDORSEMENT FROM LEGAL OFFICER NURSE FOR CONTINUITY OF CARE.
[2021-09-03 08:00] VITALS: BP 99/48
--- NOTE | 2021-09-03 08:00 | NUR ---
Patient's Plan of Care was discussed and reviewed with COVER ASSEMBLER: LINDA. WILL CONTINUE WITH CURRENT POC.
[2021-09-03] MEDS: FUROSEMIDE 40 MG/5 ML ORAL SOL UDC GT SCH ×2 (08:23→22:33)
[2021-09-03] MEDS: CINACALCET 30 MG TAB PO SCH ×2 (08:24→22:27)
[2021-09-03] MEDS: ASPIRIN 81 MG TAB.CHEW PO SCH (08:24)
[2021-09-03] MEDS: POTASSIUM CHLORIDE 20% 40 MEQ/15 ML UDC GT SCH (08:24)
[2021-09-03] MEDS: CLINICAL MONITORING MC SCH (08:30)
--- NOTE | 2021-09-03 10:00 | NUR ---
NOTED PT VOMITED MODERATED AMOUNT OF FEEDING. HELD FEEDING TUBED.
--- NOTE | 2021-09-03 13:00 | NUR ---
DR. ESTRELLA AT BED SIDE INFORM THAT PT HAD X1 VOMITING AND ORDER FOR FEEDING RESUME IF THERES NO VOMITING AND PT DIDN'T EAT FOOD.
[2021-09-03] MEDS ORDERED: MAG SULF 2000 MG/WATER PREMIX 100 ML IV SCH (13:15)
--- NOTE | 2021-09-03 13:24 | NUR ---
RN GAVE MAGNESIUM ORDER. AND NOTED PT VOMITING WITH JUST SALIVA AND COMPLAIN OF NAUSEA. WILLL GIVE ZOFRAN BEFORE THE POTASSIUM PRN.
[2021-09-03] MEDS: ONDANSETRON 4 MG/2 ML VIAL IVP PRN (13:31)
[2021-09-03] MEDS: POTASSIUM CHLORIDE 20% 40 MEQ/15 ML UDC PO PRN (13:46)
--- NOTE | 2021-09-03 15:21 | NUR ---
PT VOMITED AGAIN FEEDING STILL ON HOLD. AT BED SIDE.
[2021-09-03 16:00] VITALS: BP 99/44
[2021-09-03] MEDS ORDERED: MORPHINE SULFATE 2 MG/ML SYR IVP PRN (16:20)
--- NOTE | 2021-09-03 16:24 | NUR ---
PT ALSO COMPLAIN OF ABDOMINAL PAIN AND KEEP ON VOMITING INFORM DR. ESTRELLA AND HE SAID HE WILL LOOK UP FOR ULTRASOUND DONE BEFORE. DR. MOYA ALSO INFORM OF PT CONDITION AND THAT PT ONLY HAVE TYLENOL FOR PAIN AND SHE ORDER MORPHINE 2 MG Q4HOUR PRN FOR SEVERE PAIN ORDER NOTED AND CARRRIED OUT. AWARE.
[2021-09-03] MEDS ORDERED: MORPHINE SULFATE 2 MG/ML SYR ONE (16:37)
--- NOTE | 2021-09-03 17:14 | NUR ---
09/03/21 RD FOLLOW UP COMPLETED PLEASE REFER TO NUTRITION ASSESSMENT UNDER CARE ACTIVITY FOR ESTIMATED NUTRITIONAL NEEDS. 1. CONTINUE FULL LIQUID DIET IF TOLERATED 2. IF PT STILL HAS NAUSEA/VOMITING, RECOMMEND CLEAR LIQUID DIET 3. MONITOR GI SYMPTOMS 4. RD TO FOLLOW-UP 2-3 DAYS, HIGH RISK TATY PENG RD
--- NOTE | 2021-09-03 19:25 | NUR ---
PT ASLEEP NO SIGN OF PAIN OR ANY DISCOMFORT. GIVE REPORT TO COACH DRIVER NURSE FOR CONTINUITY OF CARE.
[2021-09-03 20:00] VITALS: BP 98/44
--- NOTE | 2021-09-03 20:00 | NUR ---
RECEIVED PT SLEEPING, OPEN EYES TO TOUCH, VERBALLY RESPONSIVE, DENIES ANY PAIN, NO N/V NOTED, G-TUBE CLAMPED AT THIS TIME DUE TO EPISODES OF N/V AND ABDOMINAL PAIN EARLIER, VITAL SIGNS TAKEN, SAT-85% ON ROOM AIR, PUT ON O2 4L NC, SAT WENT UP TO 93%, BP-98/44, HR-89, IVF INFUSING AT TKO RATE VIA RT UA MIDLINE, SAFETY MEASURES IN PLACE, CALL LIGHT WITHIN REACH.
[2021-09-03] MEDS: FERROUS SULFATE 300 MG/5 ML UDC GT SCH (22:26)
[2021-09-03] MEDS: ERYTHROMYCIN ETHYLSUCCINATE SUSP 200 MG/5 ML UDC PO SCH (22:27)
[2021-09-03] MEDS: FAMOTIDINE 20 MG TAB PO SCH (22:27)
--- NOTE | 2021-09-04 | NUR ---
PT SLEEPING, NO SIGNS OF DISTRESS, EASILY AROUSABLE BUT DROWSY, NO SIGNS OF PAIN, SAT-93% ON 4L/NC, BP-106/41, CONTINUE TO MONITOR CLOSELY.
--- NOTE | 2021-09-04 05:00 | NUR ---
PT INCONTINENT OF URINE, CLEANED BY KENNETH CASAS, PICC LINE DRESSING CHANGED, NO EPISODE OF N/V OR PAIN NOTED, G-TUBE CLAMPED, MAINTAINED ON NPO FOR SBFT TEST TODAY, MONITORED CLOSELY.
[2021-09-04 06:36] LABS: ANION GAP 11.6 (8-16); CARBON DIOXIDE 25.9 mmol/L (21-32); CHLORIDE 106 mmol/L (98-107); CREATININE 1.6 mg/dL (0.6-1.3); GLUCOSE 74 mg/dL (74-106); POTASSIUM 3.5 mmol/L (3.5-5.1); SODIUM SERUM 140 mmol/L (136-145); UREA NITROGEN, BLOOD 22 mg/dL (7-18)
--- NOTE | 2021-09-04 07:38 | NUR ---
REPORT RECEIVED FROM PM SHIFT RN NAINA FOR CONTINUITY OF CARE. PT. SLEEPING IN THE BED WITH NOS/S OF DISTRESS NOTED. ALL SAFETY MEASURES IN PLACED. WILL CONTINUE TO MONITOR THE PT.
--- NOTE | 2021-09-04 07:40 | NUR ---
PT SLEEPING, NO SIGNS OF DISTRESS, REPORT GIVEN TO GARRICK WEBB FOR CONTINUITY OF CARE.
[2021-09-04 08:00] VITALS: BP 100/64
[2021-09-04] MEDS: POTASSIUM CHLORIDE 20% 40 MEQ/15 ML UDC GT SCH (09:00)
[2021-09-04] MEDS: FAMOTIDINE 20 MG TAB PO SCH ×2 (09:00→21:58)
[2021-09-04] MEDS: ERYTHROMYCIN ETHYLSUCCINATE SUSP 200 MG/5 ML UDC PO SCH ×3 (09:00→18:42)
[2021-09-04] MEDS: FERROUS SULFATE 300 MG/5 ML UDC GT SCH ×3 (09:00→21:58)
[2021-09-04] MEDS: CLINICAL MONITORING MC SCH (09:00)
[2021-09-04] MEDS: CINACALCET 30 MG TAB PO SCH ×2 (09:00→21:59)
[2021-09-04] MEDS: FUROSEMIDE 40 MG/5 ML ORAL SOL UDC GT SCH (09:00)
[2021-09-04] MEDS: ASPIRIN 81 MG TAB.CHEW PO SCH (09:00)
--- NOTE | 2021-09-04 10:00 | NUR ---
MEDICATION NOT ADMINISTERED @ 900 DUE. PER RADIOLOGIST. SINCE PT. HAS PROCEDURE GOING ON AND CONTRAST GIVEN VIA G TUBE. SO RADIOLOGIST SAID DO NOT GIVE MEDICATION AT THIS TIME.
--- NOTE | 2021-09-04 14:00 | NUR ---
PROCEDURE FINISHED SMALL BOWEL SERIES. PT. STABLE . SLEEPING IN THE BED. ALL SAFETY MEASURES IN PLACED. WILL CONTINUE TO MONITOR THE PT.
[2021-09-04 16:00] VITALS: BP 100/53
--- NOTE | 2021-09-04 16:00 | NUR ---
PT. STABLE. SLEEPING IN THE BED COMFORTABLY. NO N/V OBSERVED . NO ACUTE DISTRESS NOTED. ALL SAFETY MEASURES IIN PLACE. WILL CONTINUE TO MONITOR THE PT.
--- NOTE | 2021-09-04 16:18 | NUR ---
PT. WITH LOW NILAM SCALE AT RISK, CONTINUE TO FOLLOW PRESSURE INJURY PREVENTION INTERVENTIONS. -TURNING AND/OR REPOSITIONING EVERY 1-2 HRS. -PROTECT/FLOAT HEELS -BY PLACING PILLOWS UNDER CALVES AT ALL TIMES, UNLESS OTHERWISE CONTRAINDICATE. APPLY HEEL PROTECTORS -MANAGE FRICTION AND SHEAR BY USING LIFT SHEET TO REPOSITION THE PATIENT. -MANAGE MOISTURE, FRICTION, AND SHEAR. KEEP SKIN DRY AND PROTECT FROM FRICTION. -INSPECT UNDER AND AROUND MEDICAL DEVICES. -ASSESS AND MONITOR SKIN CONDITION DURING POSITION CHANGE -PRESSURE REDISTRIBUTION SURFACE AND OFFLOADING SACRALCOCCYX -HOB 30 DEGREES, TOLERATED -PLEASE FOLLOW RD RECOMMENDATIONS
--- NOTE | 2021-09-04 18:46 | NUR ---
MADE ROUND. PT. SLEEPING AT THIS TIME. FAMILY MEMBER AT BED SIDE. NO DISTRESS NOTED. ALL SAFETY MEASURES IN PLACED. WILL CONTINUE TO MONITOR THE PT.
--- NOTE | 2021-09-04 19:35 | NUR ---
REPORT GIVEN TO ZULEYKA OROZCO FOR CONTINUITY OF CARE. PT. STABLE.
--- NOTE | 2021-09-04 19:36 | NUR ---
RECD. RESTING IN BED, AWAKE, A/OX2. 0N 02 AT 4 LITERS VIA N/C. RESPIRATION EVEN AND UNLABORED. NS INFUSING AT TKO, RIGHT UPPER ARM PICC LINE. GT FEEDING TURN OFF, PER ENDORSED PATIENT HAS NAUSEA AND VOMITING AND ABDOMINAL SERIES WAS DONE TODAY. DENIES PAIN 0/10.
--- NOTE | 2021-09-04 22:00 | NUR ---
NO N/'V NOTED. SMALL BOWEL X-RAY SHOWS NO SMALL BOWEL OBSTRUCTION. TURN ON FEEDING PUMP.
[2021-09-05] VITALS: BP 110/54
--- NOTE | 2021-09-05 | NUR ---
SLEEPING COMFORTABLY IN BED, RESPIRATION EVEN AND UNLABORED. CALL LIGHT IN REACH.
[2021-09-05] MEDS: ERYTHROMYCIN ETHYLSUCCINATE SUSP 200 MG/5 ML UDC PO SCH ×4 (01:07→18:29)
[2021-09-05] MEDS ORDERED: TPN PER PHARMACY MC PRN (01:10)
--- NOTE | 2021-09-05 02:00 | NUR ---
HAD LOOSE MODERATE AMOUNT OF BM, BLACK BROWN IN COLOR. CLEANSED BY HEEL SEWER AND MADE COMFORTABLE IN BED WITH PILLOWS.
--- NOTE | 2021-09-05 02:54 | NUR ---
Patient's Plan of Care was discussed and reviewed with STAFF DESIGN ENGINEER: ERNESTO SILVA
[2021-09-05] MEDS: ACETAMINOPHEN 325 MG TAB PO PRN (06:33)
--- NOTE | 2021-09-05 07:00 | NUR ---
CONDITION REMAIN STABLE. NO N/V NOTED DURING SHIFT. WILL ENDORSE TO AM SHIFT NURSE FOR CONTINUITY OF CARE.
--- NOTE | 2021-09-05 07:15 | NUR ---
RECEIVED REPORT FROM NEEDLE SETTER NURSE FOR CONTINUITY OF CARE. PT IS IN BED SLEEPING AT THIS TIME. RESPIRATIONS ARE EVEN AND UNLABORED. NO SIGNS OF PAIN OR DISCOMFORT NOTED. CALL LIGHT WITHIN REACH. ALL SAFETY MEASURES IN PLACE. WILL CONTINUE TO MONITOR.
[2021-09-05 08:00] VITALS: BP 99/50
--- NOTE | 2021-09-05 08:00 | NUR ---
Patient's Plan of Care was discussed and reviewed with SITE DAMAGE PREVENTION TECHNICIAN: REE KRUEGER
[2021-09-05] MEDS ORDERED: POTASSIUM CHLORIDE 20% 40 MEQ/15 ML UDC GT SCH (09:00)
[2021-09-05 09:35] LABS: ALBUMIN 1.8 g/dL (3.4-5.0); ANION GAP 12.1 (8-16); ASPARTATE AMINOTRANSFERASE 23 U/L (15-37); CARBON DIOXIDE 26.1 mmol/L (21-32); CHLORIDE 111 mmol/L (98-107); CHOL/HDL RATIO 4.7 (1-4.5); CREATININE 1.9 mg/dL (0.6-1.3); GLUCOSE 101 mg/dL (74-106); HDL CHOLESTEROL 18 mg/dL (40-60); LDL (CALC) 36 mg/dL (60-100); MAGNESIUM 1.8 mg/dL (1.8-2.4); PHOSPHORUS 4.3 mg/dL (2.5-4.9); POTASSIUM 3.2 mmol/L (3.5-5.1); SODIUM SERUM 146 mmol/L (136-145); TOTAL BILIRUBIN 0.3 mg/dL (0.0-1.0); TRIGLYCERIDES 152 mg/dL (30-150); UREA NITROGEN, BLOOD 29 mg/dL (7-18)
[2021-09-05] MEDS: FERROUS SULFATE 300 MG/5 ML UDC GT SCH (09:45)
[2021-09-05] MEDS: FAMOTIDINE 20 MG TAB PO SCH (09:46)
[2021-09-05] MEDS: CLINICAL MONITORING MC SCH (09:46)
[2021-09-05] MEDS: CINACALCET 30 MG TAB PO SCH ×3 (09:46→17:00)
[2021-09-05] MEDS: ASPIRIN 81 MG TAB.CHEW PO SCH (09:46)
[2021-09-05] MEDS ORDERED: POTASSIUM CHL 20MEQ/D5-NS 1,000 ML IV SCH (10:00)
[2021-09-05] MEDS ORDERED: MECL-303 PO (10:15)
--- NOTE | 2021-09-05 12:05 | NUR ---
ASSISTED WITH CHANGING AND REPOSITIONING PT. PT TOLERATED WELL. NO COMPLAINTS OF PAIN OR DISCOMFORT. WILL CONTINUE TO MONITOR.
--- NOTE | 2021-09-05 14:09 | NUR ---
PHYSICAL THERAPY CO-SIGN The Physical Therapy Progress Notes documented by Malted Milk Supervisor have been reviewed. Reviewed/Co-Signed by: Cookie Gonzalez Documentation Done by: SANDI BENJAMIN PTA Addendum: 09/05/21 at 1409 by Cookie Gonzalez PT Amended: Links added.
--- NOTE | 2021-09-05 16:22 | NUR ---
DISCHARGE ORDER IN PLACE. PT WILL BE DISCHARGING TO [facility]. CALLED AND GAVE REPORT TO MADELINE. WILL GO OVER DISCHARGE PAPER WORK WITH PT. FAMILY AT BEDSIDE. WILL CONTINUE TO MONITOR.
--- NOTE | 2021-09-05 18:55 | NUR ---
PT DISCHARGED TO [facility]. FAMILY AT BEDSIDE. WENT OVER DISCHARGE PAPERWORK. ANSWERED ALL QUESTIONS. PT UNABLE TO SIGN. PICC LINE REMOVED BY RN. WRIST BAND REMOVED. PT PICKED UP BY TRANSPORT. TRANSPORT TEAM DID NOT BRING PORTABLE 02 FOR PT. THIS HOSPITAL ALLOWED THEM TO BORROW PORTABLE 02 TANK. TRANSPORT COMPANY STATED THEY WERE GOING TO BRING IT BACK. PHONE NUMBER IS [phone].
--- NOTE | 2021-09-05 22:29 | NUR ---
PER DR. ROSSI TIMOLOL AND XALATAN EYE DROPS ARE FOR BOTH EYES - INFORMED [facility] .
== END 2021-09-05 18:55 | DRG 73 ==
LOC: MED 11:49 → MMU 18:30 → MTU 08-19 06:27 → OBSVTOIN 08-19 23:18
PROVIDERS: ADMIT Family Medicine; ATTEND Family Medicine
PROC: 02HV33Z Insertion of Infusion Device into Superior Vena Cava, Percutaneous Approach (ICD-10-PCS; 2021-08-21)
PROC: B548ZZA Ultrasonography of Superior Vena Cava, Guidance (ICD-10-PCS; 2021-08-21)
PROC: 0DH63UZ Insertion of Feeding Device into Stomach, Percutaneous Approach (ICD-10-PCS; principal; 2021-08-29 14:00)
PROC: 0DB38ZX Excision of Lower Esophagus, Via Natural or Artificial Opening Endoscopic, Diagnostic (ICD-10-PCS; 2021-08-29 14:00)
DX: E11.43 Type 2 diabetes mellitus with diabetic autonomic (poly)neuropathy (principal); J18.9 Pneumonia, unspecified organism; E43 Unspecified severe protein-calorie malnutrition; E87.1 Hypo-osmolality and hyponatremia; E87.6 Hypokalemia; E83.52 Hypercalcemia; K31.84 Gastroparesis; R13.10 Dysphagia, unspecified; K52.9 Noninfective gastroenteritis and colitis, unspecified; D63.8 Anemia in other chronic diseases classified elsewhere; E83.41 Hypermagnesemia; Z20.822 Contact with and (suspected) exposure to COVID-19; K44.9 Diaphragmatic hernia without obstruction or gangrene; E78.5 Hyperlipidemia, unspecified; E83.42 Hypomagnesemia; E83.39 Other disorders of phosphorus metabolism; R62.7 Adult failure to thrive; I10 Essential (primary) hypertension; Z88.0 Allergy status to penicillin; Z79.01 Long term (current) use of anticoagulants; Z79.82 Long term (current) use of aspirin; Z79.84 Long term (current) use of oral hypoglycemic drugs; Z79.899 Other long term (current) drug therapy; Z68.32 Body mass index [BMI] 32.0-32.9, adult
CPT/HCPCS: 36415; 70460; 71045; 74250; 76705; 78264; 80048; 80053; 80076; 80305; 81003; 82150; 82378; 82948; 83036; 83605; 83690; 83735; 83880; 84100; 84436; 84439; 84443; 84479; 84484; 85025; 85610; 85730; 87070; 87081; 88305; 88312; 93005; 96361; 96374; 97110; 97112; 97163-GP; 97530; 99285; C9113; G0378; J1364; J1815; J1956; J2250; J2270; J2405; J2765; J3010; J3475; J3480; J3490; J7030; Q0092; Q9967